=== PATIENT | female | born 1965 | race Caucasian/White ===

== ENCOUNTER 2024-06-25 17:14 | Emergency (ER) | payer OTHER, SELFPAY ==
[2024-06-25] VITALS (20 sets, daily range): BP systolic 101–140; BP diastolic 54–87; PULSE 86–119; RESP 14–28; TEMP 36.4; O2SAT 91–100
--- NOTE | ~2024-06-25 | CT_ITS ---
CLINICAL INDICATION: Abdominal pain, nausea and vomiting COMPARISON: None. TECHNIQUE: Multiple contiguous axial images of the abdomen and pelvis were performed following the ad ministration of with 100 mL Omnipaque-350 intravenous contrast The dose-length product (DLP) was 237.32 mGy-cm. Automated exposure control and iterative reconstruction technique were employed. FINDINGS/OBSERVATIONS: Visualized lower thorax: The bilateral lung bases are clear. The heart is of normal size, without pericardial effusion. Small hiatal hernia is present. Liver: The liver demonstrates homogeneous enhancement and is not enlarged. Gallbladder and biliary system: The gallbladder is only minimally distended, and otherwise unremarkable. Pancreas: The pancreas enhances homogeneously without ductal dilatation. Spleen: The spleen enhances homogeneously and is not enlarged. Kidneys: Well-circumscribed subcentimeter rounded foci of fluid attenuation within the right kidney, likely representing cysts. The remainder of the bilateral kidneys otherwise enhance symmetrically without hydronephrosis or anyi l calculi. Adrenal glands: Unremarkable. Gastrointestinal tract: The stomach is fluid-filled, and somewhat distended consistent with patient's history. Appendix: The air-filled appendix is of normal caliber (axial series, images 98 through 107) Vasculature: Unremarkable. Lymph nodes: No pathologically enlarged or morphologically suspicious lymph nodes within the retroperitoneum or at the root of the mesentery. Pelvic structures: The bladder is decompressed, and otherwise unremarkable. The uterus is anteverted and anteflexed, and otherwise unremarkable. Body wall and musculoskeletal: Small fat-containing umbilical hernia. Compression of the inferior endplate of the L1 vertebral body likely chronic secondary to sclerosis a nd vacuum phenomena. IMPRESSION: No acute pathology within the abdomen or pelvis, as detailed above. Reviewed, dictated and finalized at location A.
--- OUTSIDE RECORDS SUMMARY | 2024-06-25 18:04 | XMS_ITS | Referral Summary ---
Author Organization [facility] Address [address] [place] [address] Care Team Providers Care Shot Polisher Name Role Phone Tawana Hart MD Unavailable [phone] Jailene Callaway MD Primary Care Provider [phone] Encounters Date Type Department Care Team Description 06/11/2024 Telephone [facility] at [address] [phone] Jailene Callaway MD Med Refill 05/06/2024 Telephone [facility] Primary Care at [address] [place] [address] Jailene Callaway MD Appointment 05/06/2024 Telephone [facility] Gastroenterology at [address] [place] [address] Calderon De Leon NP 05/06/2024 10:00 AM SEAT COVER CUTTER Office Visit [facility] Gastroenterology at [address] [place] [address] Calderon De Leon NP Gastroesophageal reflux disease with esophagitis without hemorrhage (Primary Dx); Erosive gastritis; Hiatal hernia; 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; Irritable bowel syndrome with constipation; Chronic constipation; Hypotension due to hypovolemia; Viral illness; Nausea vomiting and diarrhea; Hyperglycemia due to diabetes mellitus (HCC); Nausea and vomiting, unspecified vomiting type; Tubular adenoma of colon; Tobacco use; Hepatic steatosis 05/02/2024 Telephone [facility] Res[facility] at [place] [address] [facility] [address] [place] [address] Jailene Callaway MD 04/17/2024 8:28 AM SEAT COVER CUTTER - 04/17/2024 11:59 PM SEAT COVER CUTTER Hospital Encounter [facility] [address] [place] [address] Type 2 diabetes mellitus with diabetic neuropathy, unspecified whether prison insulin use (HCC) Discharge Disposition: Discharge to home or self care from Last 3 Months Allergies No known active allergies Medications citalopram (CeleXA) 20 mg tablet Take 0.5 tablets (10 mg total) by mouth daily 5 06/09/19 19 Active blood glucose diagnostic strip Check blood sugar before meals and at bedtime every night 120 each 04/28/19 20 Active Additional Information Patient not taking.Reported on 09/18/2023 aluminum-magnesium hydroxide-simethic one (MAALOX) suspension 200-200-20 mg/5 mL Take 30 mL by mouth 4 (four) times a day as needed for heartburn 354 mL 06/01/19 24 Active cloNIDine (CATAPRES-TTS) 0.2 mg/[address] 1 patch on the skin once a week 4 patch 1 06/01/19 24 Active empagliflozin (JARDIANCE) 10 mg tablet Take 1 tablet (10 mg total) by mouth daily 07/28/19 24 Active furosemide (LASIX) 40 mg tablet Take 1 tablet (40 mg total) by mouth daily 07/27/19 24 Active insulin lispro (HumaLOG, ADMELOG) 100 unit/mL pen for injection INJECT 5 UNITS UNDER THE SKIN THREE TIMES DAILY BEFORE MEALS DIRECTED Active metoprolol XL (TOPROL-XL) 25 mg extended release tablet Take 1 tablet (25 mg total) by mouth daily 07/27/19 24 Active ondansetron ODT (ZOFRAN-ODT) 4 mg disintegrating tablet Take 1 tablet (4 mg total) by mouth every 6 (six) hours as needed 07/27/19 24 Active TechLITE Pen Needle 32 gauge x 5/32 needle USE ONCE DAILY WITH VICTOZIA 05/22/19 24 Active spironolactone (ALDACTONE) 25 mg tablet Take 1 tablet (25 mg total) by mouth daily 07/28/19 24 Active aspirin 81 mg enteric coated tablet Take 1 tablet (81 mg total) by mouth daily Active traZODone (DESYREL) 50 mg tablet Take 1 tablet (50 mg total) by mouth daily Active LANTUS 100 unit/mL (3 mL) pen for injection INJECT 20 UNITS SUBQ EVERY EVENING 10/10/19 24 Active Dexcom G7 Sensor device USE TO TEST BLOOD SUGAR FOUR TIMES DAILY 12/13/19 24 Active cyanocobalamin (Vitamin B-12) 1,000 mcg tabletIndications: Prevention of Vitamin B12 Deficiency Take 1 tablet (1,000 mcg total) by mouth daily 90 tablet 3 01/03/20 24 025 Active cholecalciferol (VITAMIN D-3) 2000 unit capsule Take 1 capsule (2,000 Units total) by mouth daily 90 capsule 3 01/03/20 24 Active albuterol HFA (PROVENTIL HFA,VENTOLIN HFA,PROAIR HFA) 90 mcg/actuation inhaler Inhale 2 puffs Activ e benzonatate (TESSALON) 100 mg capsule 01/01/20 24 Active simethicone (MYLICON) 125 mg chewable tablet Take 1 tablet (125 mg total) by mouth 4 (four) times a day as needed (cramping/bloat ing/gas/nausea) 120 tablet 3 01/03/[address] (PROTONIX) 40 mg EC tabletIndications: Treatment of Non-Bleeding Gastric Disorder Take 1 tablet (40 mg total) by mouth 2 (two) times a day before breakfast and dinner 180 tablet 3 05/06/19 25 026 Active lubiprostone (AMITIZA) 24 mcg capsuleIndications :Constipation Predominant Irritable Bowel Syndrome Take 1 capsule (24 mcg total) by mouth 2 (two) times a day with meals 60 capsule 11 05/06/19 25 026 Active semaglutide (OZEMPIC SUBQ) Inject under the skin Active Active Problems Problem Noted Date Diagnosed Date Vitamin D deficiency 01/03/2024 Tubular adenoma of colon 01/03/2024 Chronic constipation 01/03/2024 Irritable bowel syndrome with constipation 01/02 Coronary artery disease invo lving [place] coronary artery of [place] heart without angina pectoris 09/18/2023 Other emphysema 09/18/2023 Tobacco use 09/18/2023 Hepatic steatosis 08/14/2023 Hx of colonic polyps 08/14/2023 Diabetic ketoacidosis associ ated with type 2 diabetes mellitus 05/31/2023 Uncontrolled diabetes mellitus with hyperglycemi a 05/30/2023 Esophagitis 05/30/2023 Diabetic ketoacidosis withou t coma associated with type 2 diabetes mellitus 05/30/2023 Compression fracture of L1 lumbar vertebra 05/29 Hypercalcemia 05/30/2023 Topete's esophagus with dysplasia 11/19/2019 Assessment & Plan (11/19/2019 10:54 AM CDT): Pt had biopsy of esophagus which showed Topete's with indeterminate dysplasia. She is on pantoprazole daily and we discussed importance of continuing this medication as well as following GERD diet. Pt also smokes about 1 pack daily. Discussed importance of working on cessation as this can affect Topete's progression. Pt was scheduled to have EGD 3 months from last. Straining during bowel movements 11/19/2019 Assessment & Plan (11/19/2019 10:57 AM CDT): Pt c/o harder stools and often having to strain to have BM. She says she goes about every other day. Advised to use Miralax prn. Topete's esophagus 11/19/2019 Overview (11/19/2019): Added automatically from request for surgery [id number] Nausea and vomiting 09/23/2019 Overview (09/23/2019): Added automatically from request for surgery [id number] Assessment & Plan (11/19/2019 10:56 AM CDT): Likely from slow GI motility due to diabetes. She was instructed to take Reglan 10mg BID and can take up to TID if N/V episodes occur. Pt also to continue on pantoprazole daily. Assessment & Plan (09/23/2019 2:14 PM CDT): First episode started Jan 2019. Had two more episodes since then. One in Apr 2019 and most recent in July 2019. Pt says she gets N/V and epigastric pain occurs when vomiting is more severe. No hematemesis. Usually lasts about 2-4 days and then will suddenly stop. Will schedule EGD. Continue pantoprazole and stop the omeprazole. Encounter for screening colonoscopy 09/23/2019 Overview (09/23/2019): Added automatically from request for surgery [id number] Assessment & Plan (09/23/2019 2:15 PM CDT): Never had screening colonoscopy. Will schedule this today. Epigastric pain 09/23/2019 Assessment & Plan (09/23/2019 2:15 PM CDT): Occurs when N/V get more severe. GERD (gastroesophageal reflux disease) 0 Assessment & Plan (11/19/2019 10:56 AM CDT): Symptoms overall doing okay on pantoprazole daily. She is still getting nausea on and off but no regurgitation or burning in chest. Will add Reglan 10mg twice daily at least 30 minutes before lunch and dinner. She was told she can take up to 3 times daily if she starts having worsening nausea or starts to have vomiting. Pt denies any neurological or movement disorders. We discussed possible side effects of Reglan and to stop and let us know if any of these occur. She verbalized understanding. Assessment & Plan (09/23/2019 2:15 PM CDT): Pt currently taking pantoprazole 40mg daily along with omeprazole 20mg daily. Pt instructed to only take pantoprazole and stop the omeprazole. Also instructed to follow GERD diet. She was given handout on this diet. Oropharyngeal dysphagia 09/23/2019 Assessment & Plan (09/23/2019 2:12 PM CDT): Pt c/o issues with feeling as if food and liquids get suck in her upper throat. She says this happens at least once a week. Will schedule EGD. BMI 24.0-24.9, adult 09/23/2019 Metabolic alkalosis 08/03/2019 Marijuana smoker, episodic 08/03/2019 Assessment & Plan (09/23/2019 2:43 PM CDT): Pt says she smokes marijuana about 2-4 times a month. Discussed that this can cause N/V episodes. She says she doesn't notice this is correlated with the N/V episodes and seldom does. She says it helps her eat better. Hypokalemia 08/03/2019 Leukocytosis 04/26/2019 Intractable vomiting with nausea 04/26/2019 Dehydration 04/26/2019 Ketonuria 04/26/2019 Type 2 diabetes mellitus 04/26/2019 Assessment & Plan (11/19/2019 10:58 AM CDT): History of uncontrolled diabetes and DKA. Hyperlipidemia 04/26/2019 Hypercalcemia 04/26/2019 Smoker 04/26/2019 Assessment & Plan (11/19/2019 10:54 AM CDT): Smokes about 1 pack daily. Discussed cessation and importance especially given the findings of Jorge. Current smoker 10/07/2014 Overview (06/30/2016): Smoker Shoulder pain 10/07/2014 Overview (06/30/2016): Shoulder pain Diabetic ketoacidosis withou t coma associated with diabetes mellitus due to underlying condition Social History Tobacco Use Types Packs/Day Years Used Date Smoking Tobacco: Every Day Cigarettes 1.2 15.4 Started: 04/26/1994; Last attempted to quit: 2009 Smokeless Tobacco: Never Tobacco Cessation:Ready to Q uit: Not Asked; Counseling Given: Not Answered Alcohol Use Standard Drinks/Week Comments Yes 0 (1 standard drink = 0.6 oz pur e alcohol) occasional [employer] Utilities Answer Date Recorded In the past 12 months has [employer], gas, oil, or water [employer] threatened to shut off services in your home? No 05/31/2023 Social Connection and Isolat ion Panel [NHANES] Answer Date Recorded In a typical week, how many times do you talk on the phone with family, friends, or neighbors? More than three times a week 05/31/2023 How often do you get togethe r with friends or relatives? More than three times a week 05/31/2023 How often do you attend chur ch or quaker services? Never 05/31/2023 Do you belong to any clubs o r organizations such as hoahaoism groups, unions, fraternal or athletic groups, or school groups? No 05/31/2023 How often do you attend meet ings of the clubs or organizations you belong to? Never 05/31/2023 Are you , , di vorced, , never , or living with a partner? 05/31/2023 AUDIT-C Answer Date Recorded Q1: How often do you have a drink containing alc ohol? Never 05/06/2024 Q2: How many drinks containi ng alcohol do you have on a typical day when you are drinking? 1 or 2 05/06/2024 Q3: How often do you have six or more drinks on one occasion? Never 05/06/2024 Overall Financial Resource Strain (CARDIA) Answe r Date Recorded How hard is it for you to pa y for the very basics like food, housing, medical care, and heating? Not hard at all 05/31/2023 Hunger Vital Sign Answer Date Recorded Within the past 12 months, y ou worried that your food would run out before you got the money to buy more. Never true 05/31/19 24 Within the past 12 months, t he food you bought just didn't last and you didn't have money to get more. Never true 05/31/2023 PRAPARE - Transportation Answer Date Re corded In the past 12 months, has l ack of transportation kept you from medical appointments or from getting medications? No 09/2023 In the past 12 months, has l ack of transportation kept you from meetings, work, or from getting things needed for daily living? No 05/31/2023 Housing Stability Vital Sign Answer Atte e Recorded In the last 12 months, was t here a time when you were not able to pay the mortgage or rent on time? No 05/31/2023 In the last 12 months, how many places have you lived? 1 05/31/2023 In the last 12 months, was t here a time when you did not have a steady place to sleep or slept in a longterm (including now)? No 05/31/2023 Housing Stability Vital Sign Answer Tate e Recorded In the last 12 months, was t here a time when you were not able to pay the mortgage or rent on time? No 05/31/2023 Number of Times Moved in the Last Year Not on fi le 05/31/2023 Homeless in the Last Year Not on file 2023 Personal Safety Answer Date Recorded Have you ever been in or are you currently in a harmful physical or emotional relationship or is someone making you feel afraid or unsafe? Denies 02/18/2024 Education Answer Date Recorded What is the highest level of school you have completed or the highest degree you have received? Some college, no degree 05/31/2023 Comments No Sex and Gender Information Value Date Recorded Sex Assigned at Not on file Legal Sex Female 2:16 PM SEAT COVER CUTTER Gender Identity Not on file Sexual Orientation Not on file Last Filed Vital Signs Vital Sign Reading Time Taken Comments Blood Pressure 110/80 05/06/2024 9:55 AM SEAT COVER CUTTER Pulse 89 05/06/2024 9:55 AM SEAT COVER CUTTER Temperature 36.8 C (98.2 F) 02/18/2024 2:01 PM SEAT COVER CUTTER Respiratory Rate 20 02/18/2024 2:01 PM SEAT COVER CUTTER Oxygen Saturation 94% 05/06/2024 9:55 AM SEAT COVER CUTTER Inhaled Oxygen Concentration - - Weight 63.1 kg (139 lb 1.6 oz) 05/06/2024 9:55 A M SEAT COVER CUTTER Height 152.4 cm (5') 05/06/2024 9:55 AM SEAT COVER CUTTER Body Mass Index 27.17 05/06/2024 9:55 AM SEAT COVER CUTTER Plan of Treatment Not on file Procedures Procedure Name Priority Date/Time Associated Diagnosis Comments XR FOOT BILATERAL 3 OR MORE VIEWS OF EACH Schedule Routine, Read Routine (OP Routine) 04/17/2024 8:42 AM SEAT COVER CUTTER Type 2 diabetes mellitus with diabetic neuropathy, 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) SCREENING MAMMOGRAM BILATERAL W SANG Schedule Routine, Read Routine (OP Routine) 03/04/2024 2:24 PM SEAT COVER CUTTER Encounter for screening mammogram for malignant neoplasm of breast COLONOSCOPY 02/18/2024 11:27 AM SEAT COVER CUTTER EGFR Routine 12/24/2023 11:54 AM CDT Ulcerative esophagitis Gastroesophageal reflux disease with esophagitis without hemorrhage Nausea and vomiting, unspecified vomiting type HEMOGLOBIN A1C Add-On 05/30/2023 10:01 AM SEAT COVER CUTTER LIPID PANEL Routine 04/26/2019 6:33 AM SEAT COVER CUTTER from Last 3 Months or Most Recently Relevant to Health Maintenance Results * XR Foot Bilateral 3 or More Views of Each (04/17/2024 8:42 AM SEAT COVER CUTTER) Anatomical Region Laterality Modality Lower Extremities, Foot Computed Radiography 04/17/2024 10:0 0 AM SEAT COVER CUTTER Narrative 04/17/2024 10:03 AM SEAT COVER CUTTER EXAM DESCRIPTION: XR FOOT BILATERAL 3 OR MORE VIEWS OF EACH REASON FOR STUDY: E11.40 Right foot swelling 3 months No left foot pain Diabetic Nki No surgery FINDINGS: Three views of each foot are submitted for interpretation. Comparison left ankle radiographs 03/02/2012. 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 No fracture seen in either foot. Bilateral os intermetatarseum. 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 THIS IS AN ELECTRONICALLY VERIFIED FINAL REPORT 04/17/2024 10:03 AM - Electronically signed by Armando Nelson M.D. TH: TH Report ID: [id number] Reading Location: [id number] Procedure Note Armando Nelson MD - 04/17/2024 EXAM DESCRIPTION: XR FOOT BILATERAL 3 OR MORE VIEWS OF EACH REASON FOR STUDY: E11.40 Right foot swelling 3 months No left foot pain Diabetic Nki No surgery FINDINGS: Three views of each foot are submitted for interpretation. Comparisonleft ankle radiographs 03/02/2012. 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 No fracture seen in either foot. Bilateral os intermetatarseum. 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 THIS IS AN ELECTRONICALLY VERIFIED FINAL REPORT 04/17/2024 10:03 AM - Electronically signed by Armando Nelson M.D. TH: TH Report ID: [id number] Reading Location: [id number] Jailene Clalaway MD G XR PROCEDURES Final Res ult * Screening Mammogram Bilateral W Sang (03/04/2024 2:24 PM SEAT COVER CUTTER) Anatomical Region Laterality Modality Breast Bilateral Mammography 03/04/2024 3:16 PM SEAT COVER CUTTER Impressions 03/04/2024 3:16 PM SEAT COVER CUTTER No evidence of malignancy in either breast. FINAL ASSESSMENT: BI-RADS Category 1: Negative. RECOMMENDATION: Recommend return for annual screening mammogram in 12 months. Electronically signed by: Ahmet Tripp M.D. Narrative 03/04/2024 3:16 PM SEAT COVER CUTTER EXAMINATION: BILATERAL SCREENING MAMMOGRAM COMPARISON: 01/21/2018 TECHNIQUE: Full-field 2D and digital breast tomosynthesis (DBT) images were obtained. CAD was utilized. BREAST PARENCHYMAL COMPOSITION: The breasts are heterogenously dense, which may obscure small masses. FINDINGS: No suspicious masses, suspicious calcifications, or other suspicious findings are seen in either breast. There is no new suspicious finding in either breast on mammogram. Jailene Callaway MD G MAMMO PROCEDURES Final Result * Colonoscopy (02/18/2024 11:27 AM SEAT COVER CUTTER) Anatomical Region Laterality Modality Other Narrative Procedure Note Tawana Hart MD - 02/18/2024 11:27 AM CST [facility] Patient Name: Chelsy Arnett Procedure Date: 02/18/2024 11:27AM Date of : 1965 Admit Type: Outpatient Age: 58 Gender: Female Attending MD: Tawana Hart M.D. Room: [facility] ENDOSCOPY [facility]OM 1 Note Status: Finalized Patient Profile: This is a 58 year old female. History of polyps. No family history of colon cancer. She complains of chronic loose bowel movements. Procedure: Colonoscopy Indications: High risk colon cancer surveillance: Personalhistory of colonic polyps, Last colonoscopy: 2019 Referring MD: Jailene Callaway M.D. Providers: Tawana Hart M.D. Impression: - The entire examined colon is normal. Biopsied. - Internal hemorrhoids. Recommendation: - Await pathology results. - Repeat colonoscopy in 5 years for surveillance. - Continue present medications. Medicines: Monitored Anesthesia Care Complications: No immediate complications. Estimated Blood Loss: Estimated blood loss: none. Procedure: Pre-Anesthesia Assessment: - Prior to the procedure, a History and Physicalwas performed, and patient medications and allergieswere reviewed. The patient's tolerance of previous anesthesia was also reviewed. The risks andbenefits of the procedure and the sedation options and risks were discussed with the patient. All questions were answered, and informed consent was obtained. Prior Anticoagulants: The patient has taken noanticoagulant or antiplatelet agents. ASA Grade Assessment: Per anesthesia note and evaluation. After reviewing the risks and benefits, the patient was deemed in satisfactory condition to undergo the procedure. The benefits, risks and alternatives of theprocedure and sedation were discussed and informed consentwas obtained. All questions were answered. Please referto the signed informed consent document in the medical record. The bowel preparation used was Miralax via extended prep with split dose instruction. Thebowel preparation used was bisacodyl tablets via extended prep with split dose instruction. The scope waspassed under direct vision. The Pediatric Colonoscope PCF-H190L [id number] was introduced through the anus and advanced to the the cecum, identified by appendiceal orifice and ileocecal valve. Thequality of the bowel preparation was adequate. Bowel prepwas administered using a split dose. Findings: The perianal and digital rectal examinations were normal. The cecum appeared normal. The colon (entire examined portion) appeared normal. Biopsies weretaken with a cold forceps for histology. No polyps and no mass lesionsnoted. Internal hemorrhoids were found during retroflexion. The hemorrhoids were small. Electronically signed by Tawana Hart M.D. Tawana Hart M.D. 02/18/2024 1:53:55 PM Number of Addenda: 0 Note Initiated On: 02/18/2024 11:27 AM Procedure Code(s): --- Professional --- 83369, Colonoscopy, flexible; with biopsy, single or multiple Diagnosis Code(s): --- Professional --- Z86.010, Personal history of colonic polyps K64.8, Other hemorrhoids CPT copyright 2020 [employer]. All rights reserved. The codes documented in this report are preliminary and upon customer development manager reviewmay be revised to meet current compliance requirements. Recognized by the [employer] for promoting quality in endoscopy us Tawana Hart MD ENDOSCOPY PROCEDURES Final Result * eGFR (12/24/2023 11:54 AM CDT) eGFR 90 >=60 mL/min/1. 73 m2 Comment: Interpretive Data Reference Interval Normal >/= 90 mL/min/1.73m2 Mildly decreased* 60 - 89 mL/min/1.73m2 Mildly to moderately decreased 45 - 59 mL/min/1.73m2 Moderately to severely decreased 30 - 44 mL/min/1.73m2 Severely decreased 15 - 29 mL/min/1.73m2 Kidney Failure < 15 mL/min/1.73m2 *Relative to young adult level Estimated glomerular filtration rate is determined by the 2020 CKD-EPI equation recommended by the National Kidney Foundation (A Unifying Approach to GFR Estimation: Recommendations of the NKF-ASK Task Force on Reassessing the Inclusion of Race in Diagnosing Kidney Disease, JASN 2020). The CKD-EPI equation should not be used for patients with unstable renal function and has not been validated in children and those over 70. Current interpretive data was last reviewed 2021. Blood 12/24/2023 11:5 4 AM CDT 12/24/2023 3:53 PM CDT Calderon De Leon NP LAB BLOOD ORDERABLE S Final Result Performing Organization Address City/[facility]/ZIP Co de Phone Number [facility] ([place]) [address] [facility] [place] [address] * (ABNORMAL) Hemoglobin A1c (05/30/2023 10:01 AM SEAT COVER CUTTER) Hgb A1C 10.2(H) 4.0 - 5.6 % Estimated Average Glucose 246 mg/dL [facility] ([place]) Comment: The ADA recommends reporting an estimated Average Glucose (eAG) with all Hemoglobin A1c results using the equation derived from a study of 507 normal and diabetic adults. Minority populations were underrepresented and children were not included. (Diabetes Care 31:6490-6513, 2008). The eAG is not equivalent to a fasting glucose. Blood 05/30/2023 10:0 1 AM SEAT COVER CUTTER 05/30/2023 10:36 AM SEAT COVER CUTTER Suraj Garza MD LAB BLOOD ORDERABLES Final R esult [facility] ([place]) [address] [facility] [place] [address] * (ABNORMAL) Lipid panel (04/26/2019 6:33 AM SEAT COVER CUTTER) Cholesterol 234(H) 30 - 199 mg/dL [facility] ([place]) Comment: Interpretive Data Ages < or = 19 years Acceptable: <170 mg/dL Borderline high: 170-199 mg/dL High: >or= 200 mg/dL Ages > or = 20 years Desirable: <200 mg/dL Borderline high: 200-239 mg/dL High: >or= 240 mg/dL Literature References: 1. Expert Panel on Integrated Guidelines for Cardiovascular Health and Risk Reduction in Children and Adolescents. Pediatrics 2011;128:S213 2. NCEP Expert Panel. Circulation 2004;110:227 Current Interpretive Data was last revised on 2017. Triglycerides 276(H) <=149 mg/dL [facility] ([place]) Comment: Interpretive Data Ages < or = 9 years Acceptable: <75 mg/dL Borderline high: 75-99 mg/dL High: >or= 100 mg/dL Ages 10 to 20 years Acceptable: <90 mg/dL Borderline high: 90-129 mg/dL High: >or= 130 mg/dL Ages > or = 20 years Desirable: <150 mg/dL Borderline high: 150-199 mg/dL High: 200-499 mg/dL Very high: >or= 499 mg/dL Literature References: 1. Expert Panel on Integrated Guidelines for Cardiovascular Health and Risk Reduction in Children and Adolescents. Pediatrics 2011;128:S213 2. NCEP Expert Panel. Circulation 2004;110:227 Current Interpretive Data was last revised on 2017. HDL 29(L) >=40 mg/dL [facility] ([place]) Comment: Interpretive Data Ages < or = 19 years Acceptable: >45 mg/dL Borderline low: 40-45 mg/dL Low: <40 mg/dL Ages > or = 20 years Desirable: >or= 60 mg/dL Low: <40 mg/dL Literature References: 1. Expert Panel on Integrated Guidelines for Cardiovascular Health and Risk Reduction in Children and Adolescents. Pediatrics 2011;128:S213 2. NCEP Expert Panel. Circulation 2004;110:227 Current Interpretive Data was last revised on 2017. LDL, calculated 150(H) <=129 mg/dL RENE ANG ([place]) Comment: Interpretive Data Ages < or = 19 years Acceptable: <110 mg/dL Borderline high: 110-129 mg/dL High: >or= 130 mg/dL Ages > or = 20 years Optimal: <100 mg/dL Near optimal: 100-129 mg/dL Borderline high: 130-159 mg/dL High: >160 mg/dL Literature References: 1. Expert Panel on Integrated Guidelines for Cardiovascular Health and Risk Reduction in Children and Adolescents. Pediatrics 2011;128:S213 2. NCEP Expert Panel. Circulation 2004;110:227 Current Interpretive Data was last revised on 2017. Non-HDL Cholesterol 205 mg/dL RENE ANG (CHAPIN) Comment: Interpretive Data Ages < or = 19 years Acceptable: <120 mg/dL Borderline high: 120-144 mg/dL High: >145 mg/dL Ages > or = 20 years When triglycerides are >200 mg/dL, Non-HDL cholesterol is a secondary target of therapy with treatment goals that are 30 mg/dL greater than the LDL cholesterol target. Literature References: 1. Expert Panel on Integrated Guidelines for Cardiovascular Health and Risk Reduction in Children and Adolescents. Pediatrics 2011;128:S213 2. NCEP Expert Panel. Circulation 2004;110:227 Current Interpretive Data was last revised on 2017. Chol/HDL ratio 8 [place] ANG (CHAPIN) Blood specimen (specimen) 04/26/2019 6:33 AM SEAT COVER CUTTER 04/26/2019 6:57 AM SEAT COVER CUTTER us Marilyn Kong MD LAB BLOOD ORDERABLES Final Re sult RENE ANG ([place]APIN) 1 [facility] [place] [address] from Last 3 Months or Most Recently Relevant to Health Maintenance Insurance [employer] SIG [id number] [facility] Advance Directives For more information, please contact: [phone] * Full Code (Latest Code Status on File) Date Activated Date Inactivated Comments 02/18/2024 11:30 AM 02/18/2024 6:26 PM * Full Code Date Activated Date Inactivated Comments 02/18/2024 11:30 AM 02/18/2024 11:30 AM * Full Code Date Activated Date Inactivated Comments 05/31/2023 9:42 AM 06/01/2023 4:32 PM * Full Code Date Activated Date Inactivated Comments 05/30/2023 2:02 PM 05/31/2023 9:42 AM * Full Code Date Activated Date Inactivated Comments 11/05/2019 7:59 AM 11/05/2019 1:33 PM Care Teams Shot Polisher Relationship Specialty Start Date End Date Jailene Callaway MD [address] [facility] [address] [address] CALLAHAN [facility] [place] [address] PCP - General Family Medicine 07/25/23 Tawana Hart MD [address] [place] [address] [place] [address] Consulting Physician Gastroenterology 06/01/23
--- OUTSIDE RECORDS SUMMARY | 2024-06-25 18:04 | XMS_ITS | Clinical Summary ---
Author Organization [facility] Address [address] [place] [address] Care Team Providers Care Power Saw Mechanic Name Role Phone Tawana Hart MD Unavailable [phone] Jailene Callaway MD Primary Care Provider [phone] Allergies No known active allergies Medications citalopram [...] Active TechLITE Pen Needle 32 gauge x 32 needle USE ONCE DAILY WITH VICTOZIA 05/22/19 [...] day before breakfast and dinner 180 tablet 05/06/19 25 026 Active lubiprostone (AMITIZA) 24 [...] constipation 01/02 Coronary artery disease invo lving elem coronary artery of elem heart without angina pectoris 09/18/2023 Other emphysema [...] (11/19/2019): Added automatically from request for surgery [id number] Nausea and vomiting 09/23/2019 Overview (09/23/2019): Added automatically from request for surgery [id number] Assessment & Plan (11/19/2019 10:56 AM CDT): [...] (09/23/2019): Added automatically from request for surgery [id number] Assessment & Plan (09/23/2019 2:15 PM CDT): [...] and importance especially given the findings of Topete's. Current smoker 10/07/2014 Overview (06/30/2016): Smoker Shoulder pain 10/07/2014 Overview (06/30/2016): Shoulder pain Diabetic ketoacidosis withou t coma associated with diabetes mellitus due to underlying condition Encounters Date Type Department Care Team Description 06/11/2024 Telephone [facility] Res[facility] at [place] [address] [facility] [address] [place] [address] Jailene Callaway MD Med Refill 05/06/2024 10:00 AM HEMATOLOGIST Office Visit [facility] Gastroenterology at [address] [place] [address] Calderon De Leon NP Gastroesophageal reflux disease with esophagitis without hemorrhage (Primary Dx); Erosive gastritis; Hiatal hernia; 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; Irritable bowel syndrome with constipation; Chronic constipation; Hypotension due to hypovolemia; Viral illness; Nausea vomiting and diarrhea; Hyperglycemia due to diabetes mellitus (HCC); Nausea and vomiting, unspecified vomiting type; Tubular adenoma of colon; Tobacco use; Hepatic steatosis 05/06/2024 Telephone [facility] Primary Care at [address] [place] [address] Jailene Callaway MD Appointment 05/06/2024 Telephone [facility] Gastroenterology at [address] [place] [address] Calderon De Leon NP 05/02/2024 Telephone [facility] Res[facility] Clinic at [address] [place] [address] Jailene Callaway MD 04/17/2024 8:28 AM HEMATOLOGIST - 04/17/2024 11:59 PM HEMATOLOGIST Hospital Encounter [facility] [address] [place] [address] Type 2 diabetes mellitus with diabetic neuropathy, unspecified 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 (HCC) Discharge Disposition: Discharge to home or self care from Last 3 Months Surgical History Surgery Date Site/Laterality Comments SECTION 1987 section SHOULDER ARTHROSCOPY 1998 Arthroscopy shoulder HYSTERECTOMY 03/26/1997 partial hysterectomy COLONOSCOPY 11/05/2019 COLONOSCOPY 02/18/2024 UPPER GASTROINTESTINAL ENDOSCOPY 02/18/2024 Medical History Medical History Date Comments Depression Depression Hx Other Medical Three s - 1983, 1986, and 1987.; Comments: LAUREN 10/07/2014 - Hx Other Medical Arthroscopic ri ght shoulder surgery early o; Comments: LAUREN 10/07/2014 - Hx Other Medical Left AC resecti on with anterior acromioplasty 8-4-; Comments: LAUREN 11/09/2014 - Diabetes mellitus (HCC) Hyperlipidemia Type 2 diabetes mellitus (HCC) PONV (postoperative nausea and vomiting) GERD (gastroesophageal reflux disease) Hypertension Family History Medical History Relation Name Comments Other Other Family history of diabetes and hypertension.; Breast cancer Neg Hx Ovarian cancer Neg Hx Thyroid cancer Neg Hx Relation Name Status Comments Other Social History Tobacco Use Types Packs/Day Years Used Date Smoking Tobacco: Every Day Cigarettes 1.2 15.4 Started: 04/26/1994; Last attempted to quit: 2009 Smokeless Tobacco: Never Tobacco Cessation:Ready to Q uit: Not Asked; Counseling Given: Not Answered Alcohol Use Standard Drinks/Week Comments Yes 0 (1 standard drink = 0.6 oz pur e alcohol) occasional C Utilities Answer Date Recorded In the past 12 months has th e [employer], gas, oil, or water [employer] threatened to shut off services in your [...] week 05/31/2023 How often do you attend [facility] or shinto services? Never 05/31/2023 Do you belong to any clubs o r organizations such as caodaism groups, unions, fraternal or athletic groups, or [...] place to sleep or slept in a snf (including now)? No 05/31/2023 Housing Stability Vital [...] on file Legal Sex Female 2:16 PM HEMATOLOGIST Gender Identity Not on file Sexual Orientation Not on file Obstetrics History Para Term AB IAB SAB Ectopic Multiple Livin g Live Births 3 3 3 0 0 0 0 0 Date Outcome GA Total Labor Labor/2nd/3rd Weight Sex Type Anes PTL Gila A1 A5 Name Clin Term Term Term Last Filed Vital Signs Vital Sign Reading Time Taken Comments Blood Pressure 110/80 05/06/2024 9:55 AM HEMATOLOGIST Pulse 89 05/06/2024 9:55 AM HEMATOLOGIST Temperature 36.8 C (98.2 F) 02/18/2024 2:01 PM HEMATOLOGIST Respiratory Rate 20 02/18/2024 2:01 PM HEMATOLOGIST Oxygen Saturation 94% 05/06/2024 9:55 AM HEMATOLOGIST Inhaled Oxygen Concentration - - Weight 63.1 kg (139 lb 1.6 oz) 05/06/2024 9:55 A M HEMATOLOGIST Height 152.4 cm (5') 05/06/2024 9:55 AM HEMATOLOGIST Body Mass Index 27.17 05/06/2024 9:55 AM HEMATOLOGIST Plan of Treatment Health Maintenance Due Date Last Done Comments Albumin Creatinine Ratio, Urine 1965 Depression Screening 1965 Hepatitis C Screening 1965 Dilated Eye Exam 1965 Foot Exam 1965 DTaP/Tdap/Td Vaccine (1 - Tdap) 10/07/1974 Hepatitis B Screening 10/07/1981 Regular Well Visit/Exam 18-64 10/07/1981 Pneumococcal vaccine <65 (1 of 2 - PCV) 10/07/1982 Zoster Vaccine (1 of 2) 10/07/2013 Lipid Panel 04/26/2020 04/26/2019 Covid-19 Vaccine (2 - 2023-2 5 season) 2023 05/29/2020 Hemoglobin A1C 11/30/2023 05/30/2023, 04/26/2019 Influenza Vaccine (Season Ended) 2024 01/15/2023, 01/16/2020, 05/01/2019, Additional history exists eGFR 12/23/2024 12/24/2023, 03/0 10/2023, 05/31/2023, Additional history exists Breast Cancer Screening-Mammogram 03/04/2025 03/04/2024, 01/21/2018, 01/21/2018, Additional history exists Colon Cancer Screening-Colonoscopy 02/17/2034 02/18/2024, 11/05/2019 Colon Cancer Screening-CT Colonography Discontinued 02/18/2024, 11/05/2019 Colon Cancer Screening-DNA Stool Discontinued 02/18/20 24, 11/05/2019 Colon Cancer Screening-FIT Discontinued 02/18/2024, Colon Cancer Screening-Sigmoidoscopy Discontinued 02/18/2024, 11/05/2019 Procedures Procedure Name Priority Date/Time Associated Diagnosis Comments XR FOOT BILATERAL 3 OR MORE VIEWS OF EACH Schedule Routine, Read Routine (OP Routine) 04/17/2024 8:42 AM HEMATOLOGIST Type 2 diabetes mellitus with diabetic neuropathy, unspecified whether retirement insulin use (HCC) SCREENING MAMMOGRAM BILATERAL W SANG Schedule Routine, Read Routine (OP Routine) 03/04/2024 2:24 PM HEMATOLOGIST Encounter for screening mammogram for malignant neoplasm of breast COLONOSCOPY 02/18/2024 11:27 AM HEMATOLOGIST EGFR Routine 12/24/2023 11:54 AM CDT Ulcerative esophagitis Gastroesophageal reflux disease with esophagitis without hemorrhage Nausea and vomiting, unspecified vomiting type HEMOGLOBIN A1C Add-On 05/30/2023 10:01 AM HEMATOLOGIST LIPID PANEL Routine 04/26/2019 6:33 AM HEMATOLOGIST from Last 3 Months or Most Recently Relevant to Health Maintenance Results * XR Foot Bilateral 3 or More Views of Each (04/17/2024 8:42 AM HEMATOLOGIST) Anatomical Region Laterality Modality Lower Extremities, Foot Computed Radiography 04/17/2024 10:0 0 AM HEMATOLOGIST Narrative 04/17/2024 10:03 AM HEMATOLOGIST EXAM DESCRIPTION: XR FOOT BILATERAL 3 OR [...] Armando Nelson M.D. TH: TH Report ID: [id number] Reading Location: [id number] Procedure Note Armando Nelson MD - 04/17/2024 [...] Armando Nelson M.D. TH: TH Report ID: [id number] Reading Location: [id number] Jailene Callaway MD IMG XR PROCEDURES Final Res ult * Screening Mammogram Bilateral W Sang (03/04/2024 2:24 PM HEMATOLOGIST) Anatomical Region Laterality Modality Breast Bilateral Mammography 03/04/2024 3:16 PM HEMATOLOGIST Impressions 03/04/2024 3:16 PM HEMATOLOGIST No evidence of malignancy in either breast. FINAL ASSESSMENT: BI-RADS Category 1: Negative. RECOMMENDATION: Recommend return for annual screening mammogram in 12 months. Electronically signed by: Ahmet Tripp M.D. Narrative 03/04/2024 3:16 PM HEMATOLOGIST EXAMINATION: BILATERAL SCREENING MAMMOGRAM COMPARISON: 01/21/2018 TECHNIQUE: [...] Final Result * Colonoscopy (02/18/2024 11:27 AM HEMATOLOGIST) Anatomical Region Laterality Modality Other Narrative Procedure Note Tawana Hart MD - 02/18/2024 11:27 AM CST [facility] Patient Name: Chelsy Arnett Procedure Date: 02/18/2024 11:27AM Date of : 1965 Admit Type: Outpatient Age: 58 Gender: Female Attending MD: Tawana Hart M.D. Room: [facility] ENDOSCOPY ROOM 1 Note Status: Finalized Patient [...] under direct vision. The Pediatric Colonoscope [id number] was introduced through the anus and advanced [...] 11:27 AM Procedure Code(s): --- Professional --- 08952, Colonoscopy, flexible; with biopsy, single or multiple Diagnosis Code(s): --- Professional --- Z86.010, Personal history of colonic polyps K64.8, Other hemorrhoids CPT copyright 2020 [employer]. All rights reserved. The codes documented in this report are preliminary and upon medical biller/coder reviewmay be revised to meet current compliance requirements. Recognized by the [employer] for promoting quality in endoscopy Tawana Hart MD ENDOSCOPY PROCEDURES Final Result [...] NP LAB BLOOD ORDERABLE S Final Result PRIYAMARIBETH ASHIA (GOUVERNEUR) [address] [facility] Department [place] [address] * (ABNORMAL) Hemoglobin A1c (05/30/2023 10:01 AM HEMATOLOGIST) Hgb A1C 10.2(H) 4.0 - 5.6 % Estimated Average Glucose 246 mg/dL RENE ANG ([place]) Comment: The ADA recommends reporting an estimated Average Glucose (eAG) with all Hemoglobin A1c results using the equation derived from a study of 507 normal and diabetic adults. Minority populations were underrepresented and children were not included. (Diabetes Care 31:6176-8085, 2008). The eAG is not equivalent to a fasting glucose. Blood 05/30/2023 10:0 1 AM HEMATOLOGIST 05/30/2023 10:36 AM HEMATOLOGIST Suraj Garza MD LAB BLOOD ORDERABLES Final R esult R[place] ANG ([place]) 1 [facility] Department [place] [address] * (ABNORMAL) Lipid panel (04/26/2019 6:33 AM HEMATOLOGIST) Cholesterol 234(H) 30 - 199 mg/dL RENE [...] (CHAPIN) Blood specimen (specimen) 04/26/2019 6:33 AM HEMATOLOGIST 04/26/2019 6:57 AM HEMATOLOGIST us Marilyn Kong MD LAB BLOOD ORDERABLES Final Re sult [facility] ANG ([place]) [address] [facility] [place] [address] from Last 3 Months or Most Recently Relevant to Health Maintenance [facility] SIG [id number] [facility] Advance Directives For more information, please contact: [phone] * Full Code (Latest Code Status on [...] 7:59 AM 11/05/2019 1:33 PM Care Teams Power Saw Mechanic Relationship Specialty Start Date End Date Jailene Callaway MD [address] [facility] [address] [place] [address] [place] [id number] PCP - General Family Medicine 07/25/23 Tawana Hart MD [address] [place] [address] [address] [place] [id number] Consulting Physician Gastroenterology 06/01/23
--- OUTSIDE RECORDS SUMMARY | 2024-06-25 18:05 | XMS_ITS | Clinical Summary ---
Author Organization [facility] Address [address] [place] [address] Phone Care Team Providers Care Art Appraiser Name Role Phone Jailene Callaway MD Primary Care Provider [phone] Allergies No known active allergies Medications citalopram (CeleXA) 10 MG Tablet Take 1 Tablet by mouth daily. Active cloNIDine 0.2 MG/24HR PATCH WEEKLY 1 Patch by Transdermal route every 7 days. 4 Active famotidine (PEPCID) 40 MG Tablet Take 1 Tablet by mouth daily. Active metoclopramide (REGLAN) 10 MG Tablet Take 10 mg by mouth 4 times daily. 4 Active insulin lispro (HumaLOG) 100 UNIT/ML Solution 5 Units by Subcutaneous route 3 times daily (before meals). Use as directed 10 mL 3 4 Active pantoprazole (PROTONIX) 40 MG Tablet Delayed Response Take 1 Tablet by mouth daily. 30 Tablet 4 Active Empagliflozin (JARDIANCE) 10 MG Tablet Take 1 Tablet by mouth daily. 30 Tablet 4 Active furosemide (LASIX) 40 MG Tablet Take 1 Tablet by mouth daily. 90 Tablet 4 Active polyethylene glycol (GLYCOLAX, MIRALAX) 17 g PackIndications :Constipation Take 1 Packet by mouth 2 times daily as needed for Constipation - 1st line. Dissolve in 4-8 oz of liquid. Indications: Constipation 90 Packet 4 Active senna (SENOKOT) 8.6 MG Tablet Take 1 Tablet by mouth 2 times daily as needed for Constipation - 2nd line. 30 Tablet 4 Active spironolactone (ALDACTONE) 25 MG Tablet Take 1 Tablet by mouth daily. 90 Tablet 4 Active metoprolol Succinate (TOPROL-XL) 25 MG TABLET SR 24 HR Take 1 Tablet by mouth daily. 90 Tablet 4 Active ondansetron (ZOFRAN-ODT) 4 MG TABLET DISPERSIBLE Take 1 Tablet by mouth every 6 hours as needed for Nausea - 1st line. 10 Tablet 5 Active potassium chloride (KLOR-CON) 20 MEQ Pack Take 1 Packet by mouth 2 times daily. 60 Packet 5 Active dicyclomine (BENTYL) 20 MG Tablet Take 1 Tablet by mouth 3 times daily. 90 Tablet 5 Active ondansetron (ZOFRAN-ODT) 4 MG TABLET DISPERSIBLE Take 1 Tablet by mouth every 8 hours as needed for Nausea - 1st line. 10 Tablet 5 Active Active Problems Problem Noted Date Diagnosed Date Acute respiratory failure with hypoxia 4 Edema 07/25/2023 Coronary artery calcification 07/25/2023 Bilateral pleural effusion 07/25/2023 Anemia 07/25/2023 GERD with esophagitis 07/25/2023 Tobacco dependence 07/25/2023 Type 2 diabetes mellitus 07/14/2023 Cocaine abuse 07/14/2023 Esophagitis determined by endoscopy 07/14/2023 Compression fracture of L1 lumbar vertebra 07/13 Depression 07/14/2023 Anxiety 07/14/2023 Tobacco abuse 07/14/2023 HTN (hypertension) 07/14/2023 Hypovolemic shock 07/14/2023 Sepsis 07/13/2023 Hyperkalemia 07/13/2023 Metabolic alkalosis 07/13/2023 Cocaine abuse 07/13/2023 DKA (diabetic ketoacidosis) 05/28/2023 Encounters Date Type Department Care Team Description 05/09/2024 8:15 AM [facility] - 05/09/2024 11:38 AM [facility] Emergency [facility] Emergency [address] [place] [address] Dorian Bundy MD Hypokalemia Discharge Disposition: Discharged to home or Selfcare 05/09/2024 Travel 05/02/2024 11:33 AM [facility] - 05/02/2024 9:00 PM [facility] Emergency [facility] Emergency [address] [place] [address] Ahmet Diana PAC Nausea and vomiting Discharge Disposition: Discharged to home or Selfcare 05/02/2024 Travel 04/21/2024 9:08 AM [facility] - 04/21/2024 11:24 AM [facility] Emergency [facility] Emergency [address] [place] [address] Andrei Dias MD Neuropathy involving both lower extremities Discharge Disposition: Discharged to home or Selfcare 04/21/2024 Travel from Last 3 Months Family History Medical History Relation Name Comments No Known Problems Father No Known Problems Mother Relation Name Status Comments Father Mother Social History Tobacco Use Types Packs/Day Years Used Date Smoking Tobacco: Every Day Cigarettes 0.5 20 Smokeless Tobacco: Never Tobacco Cessation:Ready to Q uit: Not Asked; Counseling Given: Not Answered Alcohol Use Standard Drinks/Week Comments Not Currently 0 (1 standard drink = 0.6 oz pur e alcohol) [facility] [employer] Answer Date Recorded In the past 12 months has [employer] electric, gas, oil, or water company threatened to shut off services in your home? No 07/25/2023 Social Connection and Isolation Panel [NHANES] A nswer Date Recorded In a typical week, how many times do you talk on the phone with family, friends, or neighbors? Twice a week 07/25/2023 How often do you get together with friends or re latives? Never 07/25/2023 How often do you attend pentecostal or anabaptist serv ices? Never 07/25/2023 Do you belong to any clubs o r organizations such as pentecostal groups, unions, fraternal or athletic groups, or school groups? No 07/25/2023 How often do you attend meet ings of the clubs or organizations you belong to? Never 07/25/2023 Are you , , di vorced, , never , or living with a partner? 07/25/2023 AUDIT-C Answer Date Recorded Q1: How often do you have a drink containing alcohol? Never 07/25/2023 Q2: How many drinks containi ng alcohol do you have on a typical day when you are drinking? Patient does not drink 4 Q3: How often do you have si x or more drinks on one occasion? Never 07/25/2023 Overall Financial Resource Strain (CARDIA) Answe r Date Recorded How hard is it for you to pa y for the very basics like food, housing, medical care, and heating? Not hard at all 07/25/2023 [facility] - Occupational Stress Questionnaire Answer Date Recorded Do you feel stress - tense, restless, nervous, or anxious, or unable to sleep at night because your mind is troubled all the time - these days? To some extent 07/25/2023 Exercise Vital Sign Answer Date Recorde d On average, how many days pe r week do you engage in moderate to strenuous exercise (like a brisk walk)? 5 days 07/25/2023 On average, how many minutes do you engage in exercise at this level? 30 min 07/25/2023 Hunger Vital Sign Answer Date Recorded Within the past 12 months, y ou worried that your food would run out before you got the money to buy more. Never true 07/25/19 24 Within the past 12 months, t he food you bought just didn't last and you didn't have money to get more. Never true 07/25/2023 PRAPARE - Transportation Answer Date Re corded In the past 12 months, has l ack of transportation kept you from medical appointments or from getting medications? No 03/2023 In the past 12 months, has l ack of transportation kept you from meetings, work, or from getting things needed for daily living? No 07/25/2023 Housing Stability Vital Sign Answer Tate e Recorded In the last 12 months, was t here a time when you were not able to pay the mortgage or rent on time? No 07/25/2023 In the last 12 months, how many places have you lived? 1 07/25/2023 In the last 12 months, was t here a time when you did not have a steady place to sleep or slept in a half-way (including now)? No 07/25/2023 Sexually Active Control Partners Comments Not Currently Comments No Sex and Gender Information Value Date Recorded Sex Assigned at Not on file Legal Sex Female 11:56 PM CDT Gender Identity Not on file Sexual Orientation Not on file Last Filed Vital Signs Vital Sign Reading Time Taken Comments Blood Pressure 136/90 05/09/2024 11:00 AM [facility] Pulse 99 05/09/2024 11:00 AM [facility] Temperature 36.1 C (97 F) 05/09/2024 8:25 AM [facility] Respiratory Rate 17 05/09/2024 11:00 AM [facility] Oxygen Saturation 100% 05/09/2024 11:00 AM [facility] Inhaled Oxygen Concentration - - Weight 63.5 kg (140 lb) 05/09/2024 8:25 AM [facility] Height 152.4 cm (5') 05/09/2024 8:25 AM [facility] Body Mass Index 27.34 05/09/2024 8:25 AM [facility] Plan of Treatment Health Maintenance Due Date Last Done Comments Diabetes: Eye Exam 1965 Diabetes: Foot Exam 1965 Hepatitis C Virus (HCV) Screening 1965 TdaP Immunization 1965 Pneumococcal Immunization (50+ years) (1 of 2 - PCV) 10/07/1982 Pap Smear 10/07/1984 Cervical Cancer Screening (CCS) 10/07/1993 HPV/Cotest 10/07/1993 Cologuard 10/07/2013 Immunochemical Fecal Occult Blood 10/07/2013 Zoster Immunization (1 of 2) 10/07/2013 Respiratory Syncytial Virus (RSV) Immunization (Adult) (1 - Risk 60-74 years 1-dose series) 2023 Influenza Immunization (#1) 2023 1005/2022, 01/16/2020, 05/01/2019, Additional history exists SARS-COV-2 Immunization (2 - season) 2023 05/29/2020 Diabetes: Hemoglobin A1c 11/06/2024 025, 05/02/2024, 07/13/2023, Additional history exists Mammogram 03/04/2025 03/04/2024, 01/21/2018 Diabetes: Nephropathy Screening 05/09/2025 05/09/2024, 05/02/2024, 04/21/2024, Additional history exists Colonoscopy 02/17/2034 02/18/2024, 11/05/2019 Colorectal Cancer Screening 02/17/2034 02/18/2024, 11/05/2019 Hepatitis B Immunization Aged Out No longer eligible based on patient's age to complete this topic Meningococcal Immunization (ACWY) Aged Out No longer eligible based on patient's age to complete this topic Rotavirus Immunization Aged Out No lo nger eligible based on patient's age to complete this topic Medical Devices Implanted Type [employer] Device Identifier Shelf Expiration Date Model / Serial / Lot Device Clsr 5fr Mynxgrip Combination Machine Tool Setter Vasc Bln Cath Lock Syr Integrate Sealant 10ml Lf Disp - [id number] Implanted:Qty: 1 on 07/27/2023 by Samantha Hammond MD at [facility] IMPLANT [employer] [id number] / [id number] Procedures Procedure Name Priority Date/Time Associated Diagnosis Comments URINE DRUG SCREEN STAT 05/09/2024 9:2 9 AM [facility] URINALYSIS REFLEX IF INDICATED BY ABNORMAL RESULTS STAT 05/09/2024 9:29 AM [facility] XR ABDOMEN KUB FLAT PLATE STAT 05/09/2024 8:49 AM [facility] GOLD TOP TUBE STAT 05/09/2024 8:32 AM [facility] CBC WITH AUTO DIFFERENTIAL STAT 05/09/2024 8:32 AM [facility] TEST FOR ACETONE/KETONES STAT 05/09/2024 8:32 AM [facility] HEMOGLOBIN A1C W/ ESTIMATED GLUCOSE STAT 05/09/2024 8:32 AM [facility] EXTRA TUBES STAT 05/09/2024 8:32 AM [facility] PROTIME (PT) (PROTHROMBIN TIME) STAT 05/09/2024 8:32 AM [facility] LIPASE STAT 05/09/2024 8:32 AM [facility] ETHYL ALCOHOL (ETHANOL) STAT 05/09/2024 8:32 AM [facility] CMP (COMPREHENSIVE METABOLIC PANEL) STAT 05/09/2024 8:32 AM [facility] COMPLETE BLOOD COUNT (CBC) WITH DIFF STAT 05/09/2024 8:32 AM [facility] POCT GLUCOSE STAT 05/09/2024 8:28 AM [facility] POCT GLUCOSE STAT 05/02/2024 8:32 PM [facility] TEST FOR ACETONE/KETONES STAT 05/02/2024 7:46 PM [facility] BASIC METABOLIC PANEL W/ CALCIUM TOTAL Timed 05/02/2024 7:46 PM [facility] POCT GLUCOSE STAT 05/02/2024 7:32 PM [facility] POCT GLUCOSE STAT 05/02/2024 6:27 PM [facility] BASIC METABOLIC PANEL W/ CALCIUM TOTAL Timed 05/02/2024 4:39 PM [facility] POCT GLUCOSE STAT 05/02/2024 4:27 PM [facility] XR CHEST 2 VIEWS STAT 05/02/2024 3:04 PM [facility] TEST FOR ACETONE/KETONES STAT 05/02/2024 2:55 PM [facility] URINE DRUG SCREEN STAT 05/02/2024 1:4 5 PM [facility] URINALYSIS REFLEX IF INDICATED BY ABNORMAL RESULTS STAT 05/02/2024 1:[address] ABDOMEN PELVIS W/ CONTRAST Stat with Interpretation 05/02/2024 1:37 PM [facility] MANUAL DIFFERENTIAL STAT 05/02/2024 12:28 PM [facility] CBC WITH AUTO DIFFERENTIAL STAT 05/02/2024 12:28 PM [facility] HEMOGLOBIN A1C W/ ESTIMATED GLUCOSE STAT 05/02/2024 12:28 PM [facility] PHOSPHORUS (PO4) STAT 05/02/2024 12:28 PM [facility] MAGNESIUM (MG) STAT 05/02/2024 12:28 PM [facility] LIPASE STAT 05/02/2024 12:28 PM [facility] CMP (COMPREHENSIVE METABOLIC PANEL) STAT 05/02/2024 12:28 PM [facility] COMPLETE BLOOD COUNT (CBC) WITH DIFF STAT 05/02/2024 12:28 PM [facility] CRITICAL CARE Routine 05/02/2024 11:35 AM [facility] RSV,SARS-COV-2,INF LUENZA A&B BY PCR STAT 05/02/2024 10:53 AM [facility] XR PELVIS 1 OR 2 VIEWS STAT 04/21/2024 10:17 AM [facility] XR CHEST SINGLE VIEW PORTABLE STAT 04/21/2024 10:17 AM [facility] GOLD TOP TUBE STAT 04/21/2024 9:32 AM [facility] BLUE TOP TUBE STAT 04/21/2024 9:32 AM [facility] CBC WITH AUTO DIFFERENTIAL STAT 04/21/2024 9:32 AM [facility] EXTRA TUBES STAT 04/21/2024 9:32 AM [facility] CMP (COMPREHENSIVE METABOLIC PANEL) STAT 04/21/2024 9:32 AM [facility] COMPLETE BLOOD COUNT (CBC) WITH DIFF STAT 04/21/2024 9:32 AM [facility] EKG 12 LEAD STAT 04/21/2024 9:13 AM [facility] EKG SCAN 04/21/2024 12:00 AM [facility] from Last 3 Months Results * (ABNORMAL) Urinalysis w/ Reflex (05/09/2024 9:29 AM [facility]) Only the most recent of2 resultswithin the time period is included. SPECIFIC GRAVITY 1.015 1.003 - 1.030 05/09/2024 11:10 AM [facility] URINE PH 6.0 5.0 - 9.0 05/09/2024 11:10 AM [facility] WBC ESTERASE Negative Negative 05/09/2024 11:10 AM [facility] NITRITE Negative Negative 05/09/2024 11:10 AM [facility] PROTEIN, RANDOM URINE 500 mg/dL(A) Negative 05/09/2024 11:10 AM [facility] URINE GLUCOSE, QUAL 1000 mg/dL(A) Negative 05/09/2024 11:10 AM [facility] URINE KETONES 150 mg/dL(A) Negative 11:10 AM [facility] UROBILINOGEN Normal Normal mg/dL 05/09/2024 11:10 AM [facility] URINE BLOOD 25 /uL(A) Negative dafne/ul 05/09/2024 11:10 AM [facility] URINALYSIS COLOR Yellow 05/09/2024 11:10 AM [facility] URINALYSIS CLARITY Slightly Cloudy 05/09/2024 11:10 AM [facility] WBC (Urine) 0-5 Negative, 0-5 /hpf 05/09/2024 11:10 AM [facility] URINE RBC'S 11-20(A) Negative, 0-2 /hpf 05/09/2024 11:10 AM [facility] EPITHELIAL CELLS Occasional /lpf 05/09/2024 11:10 AM [facility] BACTERIA, URINE Few(A) Negative /hpf 05/09/2024 11:10 AM [facility] Urine URINE SPECIMEN / Unknown Non-Phlebotomy Collection / Unknown 05/09/2024 9:29 AM [facility] 05/09/2024 10:42 AM [facility] us Dorian Bundy MD URINE ORDERABLES Final Result [facility] [place] [address] * (ABNORMAL) Urine Drug Screen (05/09/2024 9:29 AM [facility]) Only the most recent of2 resultswithin the time period is included. UR AMPHETAMINE NON DETECTED NON DETECTED 05/09/2024 11:01 AM [facility] Comment: FOR MEDICAL USE ONLY. CUTOFF CONCENTRATION FOR DETECTED RESULT: AMPHETAMINE: 500 NG/ML UR BENZODIAZEPINES NON DETECTED NON DETECTED 05/09/2024 11:01 AM [facility] Comment: FOR MEDICAL USE ONLY. CUTOFF CONCENTRATION FOR DETECTED RESULT: BENZODIAZAPINE: 200 NG/ML UR COCAINE METABOLITE NON DETECTED NON DETECTED 05/09/2024 11:01 AM [facility] Comment: FOR MEDICAL USE ONLY. CUTOFF CONCENTRATION FOR DETECTED RESULT: COCAINE: 150 NG/ML UR OPIATES NON DETECTED NON DETECTED 05/09/2024 11:01 AM [facility] Comment: FOR MEDICAL USE ONLY. CUTOFF CONCENTRATION FOR DETECTED RESULT: OPIATES: 300 NG/ML UR PHENCYCLIDINE NON DETECTED NON DETECTED 05/09/2024 11:01 AM [facility] Comment: FOR MEDICAL USE ONLY. CUTOFF CONCENTRATION FOR DETECTED RESULT: PCP: 25 NG/ML UR CANNABINOID DETECTED(A) NON DETECTED 05/09/2024 11:01 AM [facility] Comment: FOR MEDICAL USE ONLY. CUTOFF CONCENTRATION FOR DETECTED RESULT: THC (MARIJUANA): 50 NG/ML UR BARBITURATE NON DETECTED NON DETECTED 05/09/2024 11:01 AM [facility] Comment: FOR MEDICAL USE ONLY. CUTOFF CONCENTRATION FOR DETECTED RESULT: BARBITUATES: 200 NG/ML UR FENTANYL NON DETECTED NON DETECTED 05/09/2024 11:01 AM [facility] Comment: FOR MEDICAL USE ONLY. CUTOFF CONCENTRATION FOR DETECTED RESULT: FENTANYL: 1.0 NG/ML Urine Non-Phlebotomy Collection / Unknown 05/09/2024 9:29 AM [facility] 05/09/2024 10:42 AM [facility] us Dorian Bundy MD URINE ORDERABLES Final Result [facility] [place] [address] * XR ABDOMEN KUB FLAT PLATE (05/09/2024 8:49 AM [facility]) Anatomical Region Laterality Modality Abdomen N/A Digital Radiogra phy 05/09/2024 9:01 AM [facility] Impressions 05/09/2024 9:04 AM [facility] IMPRESSION: Nonspecific gas pattern with moderate stool burden. Narrative 05/09/2024 9:04 AM [facility] EXAM DESCRIPTION: XR ABDOMEN KUB FLAT PLATE REASON FOR STUDY: abd pain and n/v x 2 years worsening yesterday. TECHNIQUE: Supine view COMPARISON: 05/02/2024 CT FINDINGS: Nonspecific gas pattern minimal distention small and large bowel. Moderate stool burden throughout. Probable vascular calcification over the right SI joint region. Moderate bony degenerative changes thoracolumbar junction. THIS IS AN ELECTRONICALLY VERIFIED FINAL REPORT 05/09/2024 9:01 AM - Electronically signed by Abdoulaye Cheema M.D. RB: RB Report ID: [id number] Reading Location: [id number] Procedure Note Abdoulaye Cheema MD - 05/09/2024 EXAM DESCRIPTION: XR ABDOMEN KUB FLAT PLATE REASON FOR STUDY: abd pain and n/v x 2 years worsening yesterday. TECHNIQUE: Supine view COMPARISON: 05/02/2024 CT FINDINGS: Nonspecific gas pattern minimal distention small and large bowel. Moderate stool burden throughout. Probable vascular calcification over the right SI joint region. Moderate bony degenerative changes thoracolumbar junction. THIS IS AN ELECTRONICALLY VERIFIED FINAL REPORT 05/09/2024 9:01 AM - Electronically signed by Abdoulaye Cheema M.D. RB: RB Report ID: [id number] Reading Location: [id number] IMPRESSION: Nonspecific gas pattern with moderate stool burden. us Dorian Bundy MD IMG DIAGNOSTIC ORDERABLES Final Result * (ABNORMAL) Hemoglobin A1C w/ Estimated Glucose (05/09/2024 8:32 AM [facility]) Only the most recent of2 resultswithin the time period is included. HGB-A1C 8.6(H) 4.0 - 6.0 % 05/09/2024 11:23 AM [facility] Est Average Glucose 200.1 mg/dL 05/09/2024 11:23 AM [facility] Blood Venipuncture / Unknown 05/09/2024 8:32 AM [facility] 05/09/2024 8:47 AM [facility] Narrative [facility] - 05/09/2024 11:23 AM [facility] HEMOGLOBIN A1C: DIABETIC PATIENTS: WELL-CONTROLLED: 6.2 - 7.0 INTERMEDIATE WELL-CONTROLLED: 7.0 - 9.0 POORLY-CONTROLLED: >9.0 Specimens containing greater than 5% of Hemoglobin F may result in lower than expected % HbA1C results. us Dorian Bundy MD CHEMISTRY ORDERABLES Final Resul t Performing Organization Address City/[facility] Co de Phone Number [facility] [address] [place] [address] * Gold Top Tube (05/09/2024 8:32 AM [facility]) Only the most recent of2 resultswithin the time period is included. Blood No Phlebotomy Charged / Unknown 05/09/2024 8:32 AM [facility] 05/09/2024 8:48 AM [facility] us Dorian Bundy MD CHEMISTRY ORDERABLES Final Resul t Performing Organization Address City/[facility]/ZIP Co de Phone Number [facility] [address] [place] [address] * (ABNORMAL) CBC with Auto Differential (05/09/2024 8:32 AM [facility]) Only the most recent of3 resultswithin the time period is included. WBC 13.13(H) 4.00 - 12.00 10(3)/mcL 05/09/2024 9:13 AM [facility] RBC 5.56(H) 3.80 - 5.30 10(6)/mcL 05/09/2024 9:13 AM [facility] HEMOGLOBIN (HGB) 16.8(H) 12.0 - 15.8 g/dL 05/09/2024 9:13 AM [facility] HEMATOCRIT (HCT) 49.0(H) 36.0 - 47.0 % 05/09/2024 9:13 AM [facility] MCV 88.1 82.0 - 96.0 fL 05/09/2024 9:13 AM [facility] MCH 30.2 26.0 - 34.0 pg 05/09/2024 9:13 AM [facility] MCHC 34.3 31.0 - 36.0 g/dL 05/09/2024 9:13 AM [facility] PLATELET COUNT 227 140 - 440 10(3)/mcL 05/09/2024 9:13 AM [facility] RDW 12.5 11.8 - 15.5 % 05/09/2024 9:13 AM [facility] MPV 13.1(H) 9.7 - 12.4 fL 05/09/2024 9:13 AM [facility] NEUTROPHILS 72.3 47.0 - 73.0 % 05/09/2024 9:13 AM [facility] LYMPHOCYTES 20.4 18.0 - 42.0 % 05/09/2024 9:13 AM [facility] MONOCYTES 5.0 4.0 - 12.0 % 05/09/2024 9:13 AM [facility] EOSINOPHILS 1.8 0.0 - 5.0 % 05/09/2024 9:13 AM [facility] BASOPHILS 0.5 0.0 - 1.0 % 05/09/2024 9:13 AM [facility] ABSOLUTE NEUTROPHILS 9.50(H) 1.60 - 7.70 10(3)/[facility] 05/09/2024 9:13 AM [facility] ABSOLUTE LYMPHOCYTES 2.68 1.30 - 3.20 10(3)/[facility] 05/09/2024 9:13 AM [facility] ABSOLUTE MONOCYTES 0.65 0.20 - 1.00 10(3)/[facility] 05/09/2024 9:13 AM [facility] ABSOLUTE EOSINOPHIL 0.24 0.00 - 0.40 10(3)/[facility] 05/09/2024 9:13 AM [facility] ABSOLUTE BASOPHILS 0.06 0.00 - 0.10 10(3)/[facility] 05/09/2024 9:13 AM [facility] NRBC PER 100 WBC 0 05/09/19 25 9:13 AM [facility] RESULTS ARE CONSISTENT WITH PERIPHERAL SMEAR REVIEW Yes 05/09/2024 9:13 AM [facility] RBC MORPHOLOGY CONSISTENT WITH INDICES Yes 05/09/2024 9:13 AM [facility] LARGE PLATELETS 1+ 9:13 AM [facility] Blood Venipuncture / Unknown 05/09/2024 8:32 AM [facility] 05/09/2024 8:47 AM [facility] us Dorian Bundy MD HEMATOLOGY ORDERABLES Final Resu lt [facility] [place] [address] * (ABNORMAL) PT / INR (05/09/2024 8:32 AM [facility]) PROTIME-PATIENT 11.3(L) 11.6 - 14.8 sec 05/09/2024 9:05 AM [facility] INR 0.8(L) 0.9 - 1.2 05/09/2024 9:05 AM [facility] Comment: Therapeutic Ranges INR = 2.0-3.0: Venous thromb, atrial fib, pul embolism, tissue heart valve, ami. INR = 2.5-3.5: Mechanical heart valve Critical value for INR is >/= 4.5 Blood Venipuncture / Unknown 05/09/2024 8:32 AM [facility] 05/09/2024 8:47 AM [facility] us Dorian Bundy MD HEMATOLOGY ORDERABLES Final Resu lt Performing Organization Address City/[facility]/ZIP Co de Phone Number [facility] [address] [place] [address] * Lipase (05/09/2024 8:32 AM [facility]) Only the most recent of2 resultswithin the time period is included. LIPASE 36 8 - 78 U/L 05/09/2024 9:09 AM [facility] Blood Venipuncture / Unknown 05/09/2024 8:32 AM [facility] 05/09/2024 8:47 AM [facility] us Dorian Bundy MD CHEMISTRY ORDERABLES Final Resul t Performing Organization Address City/[facility]/ZIP Co de Phone Number [facility] [address] [place] [address] * ETOH Level (05/09/2024 8:32 AM [facility]) ETHANOL <10 <10 mg/dL 05/09/2024 9:0 9 AM [facility] Blood Venipuncture / Unknown 05/09/2024 8:32 AM [facility] 05/09/2024 8:47 AM [facility] us Dorian Bundy MD CHEMISTRY ORDERABLES Final Resul t [facility] [address] [place] [address] * (ABNORMAL) CMP (05/09/2024 8:32 AM [facility]) Only the most recent of3 resultswithin the time period is included. SODIUM 140 136 - 145 mmol/L 05/09/2024 9:09 AM [facility] POTASSIUM 3.1(L) 3.5 - 5.1 mmol/L 05/09/2024 9:09 AM [facility] CHLORIDE 99 98 - 107 mmol/L 05/09/2024 9:09 AM [facility] CO2, VENOUS 23 22 - 30 mmol/L 05/09/2024 9:09 AM [facility] ANION GAP 21.1(H) <18.0 mmol/L 05/09/2024 9:09 AM [facility] GLUCOSE 266(H) 70 - 99 mg/dL 05/09/2024 9:09 AM [facility] BUN 12 10 - 20 mg/dL 05/09/2024 9:09 AM [facility] CREATININE, BLOOD 0.86 0.60 - 1.00 mg/dL 05/09/2024 9:09 AM [facility] BUN/CREATININE RATIO 14 12 - 20 ratio 05/09/2024 9:09 AM [facility] TOTAL PROTEIN 8.6(H) 6.0 - 8.0 g/dL 05/09/2024 9:09 AM [facility] ALBUMIN 4.4 3.5 - 5.0 g/dL 05/09/2024 9:09 AM [facility] A/G RATIO 1.0 1.0 - 2.2 05/09/2024 9:09 AM [facility] CALCIUM 9.9 8.7 - 10.5 mg/dL 05/09/2024 9:09 AM [facility] T BILI 0.5 0.2 - 1.2 mg/dL 05/09/2024 9:09 AM [facility] SGOT (AST) 18 6 - 42 U/L 05/09/2024 9:09 AM [facility] SGPT (ALT) <6(L) 6 - 55 U/L 05/09/2024 9:09 AM [facility] ALKALINE PHOSPHATASE 108 40 - 150 U/L 05/09/2024 9:09 AM [facility] GFR, ESTIMATED >60 >=60 05/09/2024 9:09 AM [facility] Comment: Creatinine Clearance is the preferred criteria for selecting drug dose adjustments in renally impaired patients. The GFR is provided as additional pertinent clinical information. GFR is reported in mL/min/1.73 sq m. Calculation based on the Chronic Kidney Disease Epidemiology Collaboration (CKD- EPI) equation refit without adjustment for race. GFR, EST. >60 >=60 025 9:09 AM [facility] GFR, EST. NONAFRICAN >60 >=60 05/09/2024 9:09 AM [facility] Blood Venipuncture / Unknown 05/09/2024 8:32 AM [facility] 05/09/2024 8:47 AM [facility] us Dorian Bundy MD CHEMISTRY ORDERABLES Final Resul t [facility] [place] [address] * ACETONE QUAL (05/09/2024 8:32 AM [facility]) Only the most recent of3 resultswithin the time period is included. ACETONE Negative Negative 05/09/2024 11:24 AM [facility] Blood No Phlebotomy Charged / Unknown 05/09/2024 8:32 AM [facility] 05/09/2024 8:48 AM [facility] us Dorian Bundy MD CHEMISTRY ORDERABLES Final Resul t Performing Organization Address City/[facility]/ZIP Co de Phone Number [facility] [place] [address] * (ABNORMAL) POCT Glucose (05/09/2024 8:28 AM [facility]) Only the most recent of5 resultswithin the time period is included. GLUCOSE,BEDSID E POCT 245(H) 70 - 99 mg/dL 05/09/2024 8:34 AM [facility] Blood 05/09/2024 8:28 AM [facility] 05/09/2024 8:34 AM [facility] us None Provider POINT OF CARE TESTING Final Resu lt Performing Organization Address [facility] Co de Phone Number [facility] [address] [place] [address] * (ABNORMAL) BMP with Ca, Total (05/02/2024 7:46 PM [facility]) Only the most recent of2 resultswithin the time period is included. SODIUM 145 136 - 145 mmol/L 05/02/2024 8:33 PM [facility] POTASSIUM 3.2(L) 3.5 - 5.1 mmol/L 05/02/2024 8:33 PM [facility] CHLORIDE 106 98 - 107 mmol/L 05/02/2024 8:33 PM [facility] CO2, VENOUS 30 22 - 30 mmol/L 05/02/2024 8:33 PM [facility] ANION GAP 12.2 <18.0 mmol/L 05/02/2024 8:33 PM [facility] GLUCOSE 143(H) 70 - 99 mg/dL 05/02/2024 8:33 PM [facility] BUN 22(H) 10 - 20 mg/dL 05/02/2024 8:33 PM [facility] CREATININE, BLOOD 0.90 0.60 - 1.00 mg/dL 05/02/2024 8:33 PM [facility] BUN/CREATININE RATIO 24(H) 12 - 20 ratio 05/02/2024 8:33 PM [facility] CALCIUM 8.9 8.7 - 10.5 mg/dL 05/02/2024 8:33 PM [facility] GFR, ESTIMATED >60 >=60 05/02/2024 8:33 PM [facility] Comment: Creatinine Clearance is the preferred criteria for selecting drug dose adjustments in renally impaired patients. The GFR is provided as additional pertinent clinical information. GFR is reported in mL/min/1.73 sq m. Calculation based on the Chronic Kidney Disease Epidemiology Collaboration (CKD- EPI) equation refit without adjustment for race. GFR, EST. >60 >=60 025 8:33 PM [facility] GFR, EST. NONAFRICAN >60 >=60 05/02/2024 8:33 PM [facility] Blood Venipuncture / Unknown 05/02/2024 7:46 PM [facility] 05/02/2024 8:16 PM [facility] Ahmet Diana PAC CHEMISTRY ORDERABLES Final Result [facility] [place] [address] * XR CHEST 2 VIEWS (05/02/2024 3:04 PM [facility]) Anatomical Region Laterality Modality Chest N/A Digital Radiogra phy 05/02/2024 3:25 PM [facility] Impressions 05/02/2024 3:28 PM [facility] IMPRESSION: No acute findings. Narrative 05/02/2024 3:28 PM [facility] EXAM DESCRIPTION: XR CHEST 2 VIEWS REASON FOR STUDY: Nauseas, vomitting, diarrhea, cough since midnight. Hx. DM. HTN TECHNIQUE: Two views COMPARISON: 04/21/2024 FINDINGS: Heart size and vascularity appear normal. Aortic arch well-defined on the left. Lungs are well expanded without consolidation, effusion or pneumothorax. THIS IS AN ELECTRONICALLY VERIFIED FINAL REPORT 05/02/2024 3:25 PM - Electronically signed by Abdoulaye Cheema M.D. RB: AMANDA Report ID: [id number] Reading Location: [id number] Procedure Note Abdoulaye Cheema MD - 05/02/2024 EXAM DESCRIPTION: XR CHEST 2 VIEWS REASON FOR STUDY: Nauseas, vomitting, diarrhea, cough since midnight. Hx. DM. HTN TECHNIQUE: Two views COMPARISON: 04/21/2024 FINDINGS: Heart size and vascularity appear normal. Aortic arch well-defined on the left. Lungs are well expanded without consolidation, effusion or pneumothorax. THIS IS AN ELECTRONICALLY VERIFIED FINAL REPORT 05/02/2024 3:25 PM - Electronically signed by Abdoulaye Cheema M.D. RB: AMANDA Report ID: [id number] Reading Location: [id number] IMPRESSION: No acute findings. Ahmet Diana PAC IMG DIAGNOSTIC ORDER BLAIRE Final Result * CT ABDOMEN PELVIS W/ CONTRAST (05/02/2024 1:37 PM [facility]) Anatomical Region Laterality Modality Abdomen N/A Computed Tomogra phy 05/02/2024 2:23 PM [facility] Impressions 05/02/2024 2:26 PM [facility] IMPRESSION: No acute finding. Narrative 05/02/2024 2:26 PM [facility] EXAM DESCRIPTION: CT ABDOMEN PELVIS W/ CONTRAST REASON FOR STUDY: LLQ pain with N/V/D since last night. Hx of HTN, DM, DKA, and cocaine abuse TECHNIQUE: CT scan of the abdomen and pelvis performed with intravenous and without oral contrast using helical scanning technique with dynamic intravenous contrast injection. Reconstructed coronal and sagittal MPR images reviewed. All images stored on PACS. Automated exposure control was used as a dose optimization technique for this examination. CONTRAST TYPE/DOSE: 71mL of IOPAMIDOL 76 % IV SOLN injected via Intravenous COMPARISON: Most recent comparison 07/25/2023. Mild fatty infiltration FINDINGS: LOWER CHEST: No significant pulmonary abnormalities. No effusion. LIVER: Normal size.. No identified cystic or solid masses. GALLBLADDER: No radiopaque stones or wall thickening. BILE DUCTS: No intrahepatic or extrahepatic ductal dilatation. SPLEEN: Normal size. No focal lesions. PANCREAS: No identified cystic or solid masses. No significant calcifications. No adjacent inflammation or peripancreatic fluid collections. Pancreatic duct not dilated. ADRENALS: Normal. KIDNEYS/URINARY TRACT: No identified significant solid masses. Stable multiple right renal cysts. No visualized stones. No hydronephrosis or hydroureter. Symmetric enhancement. Urinary bladder is unremarkable. GI: No dilated bowel loops. No obvious wall thickening. Normal appendix. No significant diverticular disease. PERITONEUM: No ascites or free air. RETROPERITONEUM: No mass or adenopathy. REPRODUCTIVE: No significant abnormality. VASCULATURE: No abdominal aortic aneurysm. MUSCULOSKELETAL: Stable minimal loss of height along the inferior endplate of L1. No acute osseous abnormality. OTHER: No other abnormality. THIS IS AN ELECTRONICALLY VERIFIED FINAL REPORT 05/02/2024 2:23 PM - Electronically signed by Jassi Best M.D. LC: SHAHBAZ Report ID: [id number] Reading Location: [id number] Procedure Note Deisy Best MD - 05/02/2024 EXAM DESCRIPTION: CT ABDOMEN PELVIS W/ CONTRAST REASON FOR STUDY: LLQ pain with N/V/D since last night. Hx of HTN, DM, DKA, and cocaine abuse TECHNIQUE: CT scan of the abdomen and pelvis performed with intravenous and without oral contrast using helical scanning technique with dynamic intravenous contrast injection. Reconstructed coronal and sagittal MPR images reviewed. All images stored on PACS. Automated exposure control was used as a dose optimization technique for this examination. CONTRAST TYPE/DOSE: 71mL of IOPAMIDOL 76 % IV SOLN injected via Intravenous COMPARISON: Most recent comparison 07/25/2023. Mild fatty infiltration FINDINGS: LOWER CHEST: No significant pulmonary abnormalities. No effusion. LIVER: Normal size.. No identified cystic or solid masses. GALLBLADDER: No radiopaque stones or wall thickening. BILE DUCTS: No intrahepatic or extrahepatic ductal dilatation. SPLEEN: Normal size. No focal lesions. PANCREAS: No identified cystic or solid masses. No significant calcifications. No adjacent inflammation or peripancreatic fluid collections. Pancreatic duct not dilated. ADRENALS: Normal. KIDNEYS/URINARY TRACT: No identified significant solid masses. Stable multiple right renal cysts. No visualized stones. No hydronephrosis or hydroureter. Symmetric enhancement. Urinary bladder is unremarkable. GI: No dilated bowel loops. No obvious wall thickening. Normal appendix. No significant diverticular disease. PERITONEUM: No ascites or free air. RETROPERITONEUM: No mass or adenopathy. REPRODUCTIVE: No significant abnormality. VASCULATURE: No abdominal aortic aneurysm. MUSCULOSKELETAL: Stable minimal loss of height along the inferior endplate of L1. No acute osseous abnormality. OTHER: No other abnormality. THIS IS AN ELECTRONICALLY VERIFIED FINAL REPORT 05/02/2024 2:23 PM - Electronically signed by Jassi Best M.D. LC: SHAHBAZ Report ID: [id number] Reading Location: [id number] IMPRESSION: No acute finding. Ahmet Diana PAC IMG CT ORDERABLES Fi nal Result * (ABNORMAL) Manual Differential (05/02/2024 12:28 PM [facility]) BANDS % 6.0 % 05/02/2024 1:25 PM [facility] NEUTROPHILS % 83.0(H) 47.0 - 73.0 % 05/02/2024 1:25 PM [facility] LYMPHOCYTES % 7.0(L) 18.0 - 42.0 % 05/02/2024 1:25 PM [facility] MONOCYTES % 3.0(L) 4.0 - 12.0 % 05/02/2024 1:25 PM [facility] MYELOCYTES % 1.0(H) <=0.0 % 05/02/2024 1:25 PM [facility] NEUTROPHILS ABSOLUTE 19.75(H) 1.60 - 7.70 10(3)/mcL 05/02/2024 1:25 PM [facility] LYMPHOCYTES ABSOLUTE 1.55 1.30 - 3.20 10(3)/mcL 05/02/2024 1:25 PM [facility] MONOCYTES ABSOLUTE 0.67 0.20 - 1.00 10(3)/mcL 05/02/2024 1:25 PM [facility] RBC MORPHOLOGY CONSISTENT WITH INDICES Yes 05/02/2024 1:25 PM [facility] LARGE PLATELETS 1+ 1:25 PM [facility] REACTIVE LYMPHOCYTES 3 05/02/2024 1:25 PM [facility] WBC MORPH STATUS Normal 05/02/19 1:25 PM [facility] Blood Venipuncture / Unknown 05/02/2024 12:28 PM [facility] 05/02/2024 12:41 PM [facility] Narrative [facility] - 05/02/2024 1:25 PM [facility] Anisocytosis Ahmet Diana PAC HEMATOLOGY ORDERABLE S Final Result [facility] [address] [place] [address] * Phosphorus (PO4), Serum (05/02/2024 12:28 PM [facility]) PHOSPHORUS 2.8 2.5 - 4.5 mg/dL 05/02/2024 4:40 PM [facility] Blood Venipuncture / Unknown 05/02/2024 12:28 PM [facility] 05/02/2024 12:41 PM [facility] Ahmet Diana PAC CHEMISTRY ORDERABLES Final Result Performing Organization Address City/[facility]/ZIP Co de Phone Number [facility] [address] [place] [address] * (ABNORMAL) Magnesium (Mg) (05/02/2024 12:28 PM [facility]) MAGNESIUM 1.5(L) 1.6 - 2.6 mg/dL 05/02/2024 4:40 PM [facility] Blood Venipuncture / Unknown 05/02/2024 12:28 PM [facility] 05/02/2024 12:41 PM [facility] us Ahmet Diana PAC CHEMISTRY ORDERABLES Final Result [facility] [address] [place] [address] * Critical Care (05/02/2024 11:35 AM [facility]) Narrative Andrei Dias MD - 05/02/2024 11:35 AM [facility] Ahmet Diana PAC 05/02/2024 8:41 PM Critical Care Performed by: Ahmet Diana PAC Authorized by: Ahmet Diana PAC Critical care provider statement: Critical care time (minutes): 30 Critical care was necessary to treat or prevent imminent or life-threatening deterioration of the following conditions: Endocrine crisis Critical care was time spent personally by me on the following activities: Ordering and performing treatments and interventions, ordering and review of laboratory studies, pulse oximetry, re-evaluation of patient's condition, ordering and review of radiographic studies, review of old charts, evaluation of patient's response to treatment, development of treatment plan with patient or surrogate, obtaining history from patient or surrogate and examination of patient I assumed direction of critical care for this patient from another provider in my specialty: no us Ahmet Diana PAC PROCEDURE/MINOR SURG ICAL ORDERABLES Final Result * RSV,SARS-COV-2,INFLUENZA A&B BY PCR (05/02/2024 10:53 AM [facility]) FLU A Negative Negative, Error 05/02/2024 11:43 AM [facility] FLU B Negative Negative 05/02/2024 11:43 AM [facility] RESP SYNC VIRUS Negative Negative 11:43 AM [facility] SARSCOV2 NOT DETECTED (Reference Range for this test is Not Detected) 05/02/2024 11:43 AM [facility] Comment:This test was perfor med by a Reverse Family Sociologist PCR Method. Swab NASOPHARYNGEAL SWAB / Unknown Non-Phlebotomy Collection / Unknown 05/02/2024 10:53 AM [facility] 05/02/2024 11:03 AM [facility] Ahmet Diana PAC MICROBIOLOGY - GENER AL ORDERABLES Final Result [facility] [address] [place] [address] * XR PELVIS 1 OR 2 VIEWS (04/21/2024 10:17 AM [facility]) Anatomical Region Laterality Modality Abdomen, Pelvis N/A Digital Radiogra phy 04/21/2024 10:4 5 AM [facility] Impressions 04/21/2024 10:48 AM [facility] IMPRESSION: No acute osseous abnormality. Minimal bilateral hip osteoarthritis. Narrative 04/21/2024 10:48 AM [facility] EXAM DESCRIPTION: XR PELVIS 1 OR 2 VIEWS REASON FOR STUDY: Bilateral hip pain for 3-4 days. TECHNIQUE: AP pelvis view COMPARISON: CT chest, abdomen, pelvis 07/25/2023 FINDINGS: BONES/JOINTS: No acute fracture. Minimal bilateral hip osteoarthritis. The iliopectineal and ilioischial lines are intact. SOFT TISSUES: Within normal limits. THIS IS AN ELECTRONICALLY VERIFIED FINAL REPORT 04/21/2024 10:45 AM - Electronically signed by Woodrow Allen M.D. LB: CHERI Report ID: [id number] Reading Location: [id number] Procedure Note Woodrow Allen MD - 04/21/2024 EXAM DESCRIPTION: XR PELVIS 1 OR 2 VIEWS REASON FOR STUDY: Bilateral hip pain for 3-4 days. TECHNIQUE: AP pelvis view COMPARISON: CT chest, abdomen, pelvis 07/25/2023 FINDINGS: BONES/JOINTS: No acute fracture. Minimal bilateral hip osteoarthritis. The iliopectineal and ilioischial lines are intact. SOFT TISSUES: Within normal limits. THIS IS AN ELECTRONICALLY VERIFIED FINAL REPORT 04/21/2024 10:45 AM - Electronically signed by Woodrow Allen M.D. LB: LB Report ID: [id number] Reading Location: [id number] IMPRESSION: No acute osseous abnormality. Minimal bilateral hip osteoarthritis. Andrei Dias MD IMG DIAGNOSTIC ORDERABLES Final Result * XR CHEST SINGLE VIEW PORTABLE (04/21/2024 10:17 AM [facility]) Anatomical Region Laterality Modality Chest N/A Digital Radiogra phy 04/21/2024 10:5 0 AM [facility] Impressions 04/21/2024 10:53 AM [facility] IMPRESSION: Mild diffuse coarse interstitial markings may be related to edema or atypical pneumonia. Narrative 04/21/2024 10:53 AM [facility] EXAM DESCRIPTION: XR CHEST SINGLE VIEW PORTABLE REASON FOR STUDY: Bilateral leg swelling for 1.5 weeks. Increasing shortness of breath. TECHNIQUE: Frontal radiographic view of the chest COMPARISON: Chest radiograph 07/27/2023 FINDINGS: LUNGS/PLEURAE: There is mild diffuse coarse interstitial markings. No large pleural effusion. There is no pneumothorax. HEART/MEDIASTINUM: Heart size is normal. Normal mediastinal and hilar contours. Atherosclerotic calcification of the thoracic aorta. HARDWARE/LINES/TUBES: None. BONES: Presumed postoperative change in the lateral left clavicle is unchanged. Mild thoracic spondylosis. THIS IS AN ELECTRONICALLY VERIFIED FINAL REPORT 04/21/2024 10:50 AM - Electronically signed by Woodrow Allen M.D. LB: LB Report ID: [id number] Reading Location: [id number] Procedure Note Woodrow Allen MD - 04/21/2024 EXAM DESCRIPTION: XR CHEST SINGLE VIEW PORTABLE REASON FOR STUDY: Bilateral leg swelling for 1.5 weeks. Increasing shortness of breath. TECHNIQUE: Frontal radiographic view of the chest COMPARISON: Chest radiograph 07/27/2023 FINDINGS: LUNGS/PLEURAE: There is mild diffuse coarse interstitial markings. No large pleural effusion. There is no pneumothorax. HEART/MEDIASTINUM: Heart size is normal. Normal mediastinal and hilar contours. Atherosclerotic calcification of the thoracic aorta. HARDWARE/LINES/TUBES: None. BONES: Presumed postoperative change in the lateral left clavicle is unchanged. Mild thoracic spondylosis. THIS IS AN ELECTRONICALLY VERIFIED FINAL REPORT 04/21/2024 10:50 AM - Electronically signed by Woodrow Allen M.D. LB: LB Report ID: [id number] Reading Location: [id number] IMPRESSION: Mild diffuse coarse interstitial markings may be related to edema or atypical pneumonia. Andrei Dias MD IMG DIAGNOSTIC ORDERABLES Final Result * Blue Top Tube (04/21/2024 9:32 AM [facility]) Blood No Phlebotomy Charged / Unknown 04/21/2024 9:32 AM [facility] 04/21/2024 10:11 AM [facility] Andrei Dias MD HEMATOLOGY ORDERABLES Tiffany l Result [facility] [place] [address] * EKG 12 LEAD (04/21/2024 9:13 AM [facility]) Ventricular Rate 92 BPM EXTERNAL EKG Atrial Rate 92 BPM EXTERNAL EKG P-R Interval 126 ms EXTERNAL EKG QRS Duration 76 ms EXTERNAL EKG Q-T Duration 368 ms EXTERNAL EKG QTC CALCULATION 455 ms EXTERNAL EKG P Falcon -1 degrees EXTERNAL EKG R Falcon 44 degrees EXTERNAL EKG T Falcon 22 degrees EXTERNAL EKG 04/21/2024 9:13 AM [facility] Impressions EXTERNAL EKG - 04/22/2024 3:05 PM [facility] Normal sinus rhythm Normal ECG When compared with ECG of 25-JUL-2023 17:57, No significant change was found Confirmed by Gregory Chopra ([id number]) on 04/22/2024 3:05:13 PM Narrative Procedure Note Gregory Chopra MD - 04/22/2024 IMPRESSION: Normal sinus rhythm Normal ECG When compared with ECG of 25-JUL-2023 17:57, No significant change was found Confirmed by Gregory Chopra ([id number]) on 04/22/2024 3:05:13 PM us Andrei Dias MD IMG ECG ORDERABLES Final R esult EXTERNAL EKG * EKG SCAN (04/21/2024 12:00 AM [facility]) 04/21/2024 us Provider Scan IMG ECG ORDERABLES Final Result RESULTING AGENCY from Last 3 Months Insurance MEDICAID [employer] [facility] Advance Directives * Full Code (Latest Code Status on File) Date Activated Date Inactivated Comments 07/25/2023 8:35 PM 07/27/2023 4:14 PM CPR-Full Treat ment: FULL ARREST: Attempt Resuscitation/CPR wit intubation and mechanical ventilation. PRE-ARREST: Use entire range of life support measures to stabilize the patient. * Full Code Date Activated Date Inactivated Comments 07/13/2023 2:10 PM 07/17/2023 5:53 PM CPR-Full Thierry atment: FULL ARREST: Attempt Resuscitation/CPR wit intubation and mechanical ventilation. PRE-ARREST: Use entire range of life support measures to stabilize the patient. Care Teams Art Appraiser Relationship Specialty Start Date End Date Jailene Callaway MD [address] [place] [address] [address] PCP - General Family Medicine 04/21/24
--- OUTSIDE RECORDS SUMMARY | 2024-06-25 18:05 | XMS_ITS | Data Portability ---
Author Organization [facility] Lyndon YUAN Address [address] [address] Care Team Providers Care Human Resources Operations Coordinator Name Role Phone OTF YU Account Resolution Expert JAILENE GUAJARDO Primary Care Provider Unavailabl e Assessment No assessment recorded. Plan of Treatment Reminders Order Date Submit Date Provider Last Modified By Organization Details Last Modified Time Details Appointments ANY 30 2024 01:00P M JOSE JACOBSEN MD Not available Not available Not available Lab HbA1c (hemoglob in A1c), blood 2024 025 [facility] In-Office Order, Internal Use Only DO Not Attach Compendium DO Not Attach Compendium, Do Not Delete/merge, [id number] 03/27/2024 17:45:14 pap, IG + reflex HPV 2024 025 [facility], [address] [facility] [address] [facility] [address], [address], [place], [address], 04/01/2024 09:27:31 Referral None recorded. Procedures None recorded. Surgeries None recorded. Imaging XR, foot, 3 or more view 2024 025 [facility], [address] [place], [address], 05/09/2024 11:14:04 Medication Orders gabapenti n 300 mg capsule 2024 025 [id number], [address], [place], [id number], 04/10/2024 18:35:22 trazodone 100 mg tablet 2024 [id number], [address], [place], [id number], 04/10/2024 17:19:49 aripipraz ole 5 mg tablet 2024 [facility][id number], [address], [place], [id number], 03/29/2024 21:52:49 Ozempic 0.25 mg or 0.5 mg (2 mg/3 mL) subcutane ous pen injector 2024 [facility]odar[facility]60893, [address], [place], [id number], 04/10/2024 15:15:10 estradiol 0.01% (0.1 mg/gram) vaginal cream 2024 [facility] #90257, [address], [place], [id number], 03/29/2024 21:52:48 Patient TargetsNo targets recorded. Patient Instructions Encounter Date Encounter Id Patient Instructions Last Modified By Organization Details Last Modified Time 03/27/2024 [id number] bipolar disorder : care instructions octabi Not available 03/27/2024 17:37:37 learning about mood disorders augabi Not available 03/27/2024 17:37:37 I personally saw and examined the patient with the resident. I agree with the note and plan as documented. Tamara Suresh MD. [facility] [email or web address] Not available 03/27/2024 17:13:14 04/10/2024 [id number] learning about type 2 diabetes augabi Not available 04/10/2024 17:19:44 type 2 diabetes: care instructions augabi Not available 04/10/2024 17:19:44 I saw the patien t with the resident. I agree with the resident's assessment and plan as documented Martin Uribe MD [email or web address] Not available 04/10/2024 16:02:38 Reason for Referral None Reported. Results Created Date Observation Date Name Description Value Unit Range Abnormal Flag Note LastModifiedBy Organization Detail LastModifiedTime 12/13/19 24 12/13/2023 HbA1c (hemo globi n A1c), blood HbA1c 9.0% Not Available In-Office Order Internal Use Only DO Not Attach Compendium DO Not Attach Compendium, Do Not Delete/merge, [id number] 12/13/2023 15:12:47 03/27/19 25 03/27/2024 HbA1c (hemo globi n A1c), blood HbA1c 9.1 Not Available In-Office Order Internal Use Only DO Not Attach Compendium DO Not Attach Compendium, Do Not Delete/merge, [id number] 03/27/2024 17:37:35 03/28/19 25 03/28/2024 IGP,A PTIMA HPV,A GE GDLN age gdln acog testing 30-65 Not Available [facility] ([facility]) [address], [place], [address], 04/01/2024 09:27:31 03/28/19 25 03/31/2024 IGP, APTIM A HPV, RFX 16/18 ,45 HPV aptima Negati ve negati ve This nucle ic acid ampli ficat ion test detec ts fourt een high- risk HPV types (16,1 8,31, 33,35 ,39,4 5,51, 52,56 ,58,5 9,66, 68) witho ut diffe renti ation . Not Available [facility] ([facility]) [address], [place], [address], 04/01/2024 09:27:33 03/28/1904/01/2024 IGP, APTIM A HPV, RFX 16/18 ,45 diagnosis: Commen t NEGAT VIOLET FOR INTRA EPITH ELIAL LESIO N OR MALHEDY STEVENSON . Not Available [facility] ([facility]) [address], [place], [address], 04/01/2024 09:27:33 03/28/19 25 04/01/2024 IGP, APTIM A HPV, RFX 16/18 ,45 specimen adequacy: Odalis duran Satis facto ry for evalu ation . No endoc ervic al compo nent is ident ified . Not Available [facility] ([facility]) [address] [place], [address], 04/01/2024 09:27:33 03/28/19 25 04/01/2024 IGP, APTIM A HPV, RFX 16/18 ,45 clinician provided ICD10: Odalis duran Z00.0 0 Not Available [facility] ([facility]) [address], [place], [address], 04/01/2024 09:27:33 03/28/19 25 04/01/2024 IGP, APTIM A HPV, RFX 16/18 ,45 performed by: Odalis siu, Cytorenee duran (ASCP ) Not Available [facility] ([facility]) [address] [place], [address], 04/01/2024 09:27:33 03/28/19 25 04/01/2024 IGP, APTIM A HPV, RFX 16/18 ,45 . . Not Available [facility] ([facility]) [address] [place], [address], 04/01/2024 09:27:33 03/28/19 25 04/01/2024 IGP, APTIM A HPV, RFX 16/18 ,45 note: Odalis duran The Pap smear is a scree rajwinder test desig christian to aid in the detec tion of taj ligna nt and malig nant condi tions of the uteri ne cervi x. It is not a diagn ostic proce dure and shoul d not be used as the sole means of detec ting cervi jayson cance r. Both false -posi tive and false -nega tive repor ts do occur . Not Available [facility] ([facility]) [address], [place], [address], 04/01/2024 09:27:33 03/28/1904/01/2024 IGP, APTIM A HPV, RFX 16/18 ,45 test methodology: Commen t This liqui d based ThinP rep(R ) pap test was roslyn gonzales with the use of an image guide jennifer love Not Available [facility] ([facility]) [address], [place], [address], 04/01/2024 09:27:33 03/28/1904/01/2024 IGP, APTIM A HPV, RFX 16/18 ,45 HPV genotype reflex Commen t Crite reinaldo not met, HPV Genot ype not perfo rmed. Not Available [facility] ([facility]) [address], [place], [address], 04/01/2024 09:27:33 05/02/19 25 05/02/2024 Gluco se [Mass /volu me] in Blood glucose [mass/volume ] in blood 120 mg/dL low: 70mg/d Lhigh: 99mg/d L high GLUCO SE,BE DSIDE POCT 120 (H) 70 - 99 mg/dL 05/02 8:41 PM [employer]ELOPER [facility] Not Available Not Available 05/08/2024 13:25:44 05/02/19 25 05/02/2024 Gluco se [Mass /volu me] in Blood interpretati on and review of laboratory results Abnorm al Not Available Not Available 13:25:44 05/02/1905/02/2024 Basic metab olic 2000 panel - Serum or Plasm a sodium [moles/volum e] in serum or plasma 145 mmol/ L low: 136mmo l/Lhig h: 145mmo l/L SODIU M 145 136 - 145 mmol/ L 05/02 8:33 PM [employer]EL[employer] [facility] Not Available Not Available 05/08/2024 13:25:43 05/02/19 25 05/02/2024 Basic metab olic 2000 panel - Serum or Plasm a potassium [moles/volum e] in serum or plasma 3.2 mmol/ L low: 3.5mmo l/Lhig h: 5.1mmo l/L low POTAS SIUM 3.2 (L) 3.5 - 5.1 mmol/ L 05/02 8:33 PM [employer]EL[employer] [facility] Not Available Not Available 05/08/2024 13:25:43 05/02/19 25 05/02/2024 Basic metab olic 2000 panel - Serum or Plasm a chloride [moles/volum e] in serum or plasma 106 mmol/ L low: 98mmol /Lhigh : 107mmo l/L CHLOR ROQUE 106 98 - 107 mmol/ L 05/02 8:33 PM [employer]ELOPER [facility] Not Available Not Available 05/08/2024 13:25:43 05/02/19 25 05/02/2024 Basic metab olic 2000 panel - Serum or Plasm a carbon dioxide, total [moles/volum e] in serum or plasma 30 mmol/ L low: 22mmol /Lhigh : 30mmol /L CO2, VENOU S 30 22 - 30 mmol/ L 05/02 8:33 PM [employer]EL[employer] [facility] Not Available Not Available 05/08/2024 13:25:43 05/02/19 25 05/02/2024 Basic metab olic 1999 panel - Serum or Plasm a anion gap in serum or plasma 12.2 mmol/ L high: 18mmol /L ANION GAP 12.2 <18.0 mmol/ L 05/02 8:33 PM [employer]EL[employer] [facility] Not Available Not Available 05/08/2024 13:25:43 05/02/19 25 05/02/2024 Basic metab olic 2000 panel - Serum or Plasm a glucose [mass/volume ] in serum or plasma 143 mg/dL low: 70mg/d Lhigh: 99mg/d L high GLUCO SE 143 (H) 70 - 99 mg/dL 05/02 8:33 PM [employer]EL[employer] [facility] Not Available Not Available 05/08/2024 13:25:43 05/02/19 25 05/02/2024 Basic metab olic 2000 panel - Serum or Plasm a urea nitrogen [mass/volume ] in serum or plasma 22 mg/dL low: 10mg/d Lhigh: 20mg/d L high BUN 22 (H) 10 - 20 mg/dL 05/02 8:33 PM [employer]EL[employer] [facility] Not Available Not Available 05/08/2024 13:25:43 05/02/19 25 05/02/2024 Basic metab olic 2000 panel - Serum or Plasm a creatinine [mass/volume ] in serum or plasma 0.9 mg/dL low: 0.6mg/ dLhigh : 1mg/dL CREAT ININE , BLOOD 0.90 0.60 - 1.00 mg/dL 05/02 8:33 PM [employer] DEVELOPER [facility] Not Available Not Available 05/08/2024 13:25:43 05/02/19 25 05/02/2024 Basic metab olic 2000 panel - Serum or Plasm a urea nitrogen/cre atinine [mass ratio] in serum or plasma 24 text: 12 - 20 ratio high BUN/C REATI NINE RATIO 24 (H) 12 - 20 ratio 05/02 8:33 PM [employer] DEVEL[employer] [facility] Not Available Not Available 05/08/2024 13:25:43 05/02/19 25 05/02/2024 Basic metab olic 2000 panel - Serum or Plasm a calcium [mass/volume ] in serum or plasma 8.9 mg/dL low: 8.7mg/ dLhigh : 10.5mg /dL CALCI UM 8.9 8.7 - 10.5 mg/dL 05/02 8:33 PM [employer]EL[employer] [facility] Not Available Not Available 05/08/2024 13:25:43 05/02/19 25 05/02/2024 Basic metab olic 2000 panel - Serum or Plasm a glomerular filtration rate/1.73 sq M.predicted among non-blacks [volume rate/area] in serum, plasma or blood by creatinine-b ased formula (MDRD) low: 60 GFR, ESTIM ATED >60 >=60 05/02 8:33 PM [employer] [facility] Not Available Not Available 05/08/2024 13:25:43 05/02/19 25 05/02/2024 Basic metab olic 2000 panel - Serum or Plasm a glomerular filtration rate/1.73 sq M.predicted among blacks [volume rate/area] in serum, plasma or blood by creatinine-b ased formula (MDRD) low: 60 GFR, EST. AFRIC AN >60 >=60 05/02 8:33 PM [employer]EL[employer] [facility] Not Available Not Available 05/08/2024 13:25:43 05/02/19 25 05/02/2024 Basic metab olic 2000 panel - Serum or Plasm a glomerular filtration rate/1.73 sq M.predicted among non-blacks [volume rate/area] in serum, plasma or blood by creatinine-b ased formula (MDRD) low: 60 GFR, EST. NONAF RICAN >60 >=60 05/02 8:33 PM [employer]EL[employer] [facility] Not Available Not Available 05/08/2024 13:25:43 05/02/19 25 05/02/2024 Basic metab olic 2000 panel - Serum or Plasm a interpretati on and review of laboratory results Abnorm al Not Available Not Available 13:25:43 05/02/19 25 05/02/2024 Aceto ne [Pres ence] in Blood acetone [presence] in blood Negati ve text: negati ve ACETO NE Negat violet Negat violet 05/02 8:29 PM [employer]EL[employer] [facility] [employer] LAB Not Available Not Available 05/08/2024 13:25:43 05/02/19 25 05/02/2024 Aceto ne [Pres ence] in Blood interpretati on and review of laboratory results Normal Not Available Not Available 04/26 13:25:43 05/02/19 25 05/02/2024 Drugs of abuse panel - Urine by Scree n metho d amphetamine [presence] in urine by screen method NON DETECT ED text: non detect ed UR AMPHE TAMIN E NON DETEC PAMELA NON DETEC PAMELA 05/02 5:07 PM [employer] DEVELOPER [facility] Not Available Not Available 05/08/2024 13:25:43 05/02/19 25 05/02/2024 Drugs of abuse panel - Urine by Scree n metho d benzodiazepi julita [presence] in urine NON DETECT ED text: non detect ed UR BENZO DIAZE [place]ES NON DETEC PAMELA NON DETEC PAMELA 05/02 5:07 PM [employer] DEVELOPER [facility] Not Available Not Available 05/08/2024 13:25:43 05/02/19 25 05/02/2024 Drugs of abuse panel - Urine by Scree n metho d benzoylecgon ine [presence] in urine NON DETECT ED text: non detect ed UR COCAI NE METAB OLITE NON DETEC PAMELA NON DETEC PAMELA 05/02 5:07 PM [employer] DEVELOPER [facility] Not Available Not Available 05/08/2024 13:25:43 05/02/19 25 05/02/2024 Drugs of abuse panel - Urine by Scree n metho d opiates [presence] in urine DETECT ED text: non detect ed abnormal UR OPIAT ES DETEC PAMELA (A) NON DETEC PAMELA 05/02 5:07 PM [employer] DEVELOPER [facility] Not Available Not Available 05/08/2024 13:25:43 05/02/19 25 05/02/2024 Drugs of abuse panel - Urine by Scree n metho d phencyclidin e [presence] in urine NON DETECT ED text: non detect ed UR PHENC YCLID INE NON DETEC PAMELA NON DETEC PAMELA 05/02 5:07 PM [employer] DEVELOPER [facility] Not Available Not Available 05/08/2024 13:25:43 05/02/19 25 05/02/2024 Drugs of abuse panel - Urine by Scree n metho d cannabinoids [presence] in urine DETECT ED text: non detect ed abnormal UR CANNA BINOI D DETEC PAMELA (A) NON DETEC PAMELA 05/02 5:07 PM [employer] DEVELOPER [facility] Not Available Not Available 05/08/2024 13:25:43 05/02/19 25 05/02/2024 Drugs of abuse panel - Urine by Roslyn rodriguez barbiturates [presence] in urine NON DETECT ED text: non detect ed UR SILAS TURAT E NON DETEC PAMELA NON DETEC PAMELA 05/02 5:07 PM [employer] DEVELOPER [facility] Not Available Not Available 05/08/2024 13:25:43 05/02/19 25 05/02/2024 Drugs of abuse panel - Urine by Roslyn rodriguez ur fentanyl NON DETECT ED text: non detect ed UR FENTA NYL NON DETEC PAMELA NON DETEC PAMELA 05/02 5:07 PM [employer] DEVELOPER [facility] Not Available Not Available 05/08/2024 13:25:43 05/02/19 25 05/02/2024 Drugs of abuse panel - Urine by Roslyn rodriguez interpretati on and review of laboratory results Abnorm al Not Available Not Available 13:25:43 05/02/19 25 05/02/2024 Monicaa l Diffe renti al band form neutrophils/ 100 leukocytes in blood by manual count 6 % BANDS % 6.0 % 05/02 1:25 PM [employer] DEVELOPER [facility] Not Available Not Available 05/08/2024 13:25:44 05/02/19 25 05/02/2024 Manua l Diffe renti al neutrophils/ 100 leukocytes in blood by manual count 83 % low: 47%hig h: 73% high NEUTR OPHIL S % 83.0 (H) 47.0 - 73.0 % 05/02 1:25 PM [employer] DEVELOPER [facility] Not Available Not Available 05/08/2024 13:25:44 05/02/19 25 05/02/2024 Manua l Diffe renti al lymphocytes/ 100 leukocytes in blood by manual count 7 % low: 18%hig h: 42% low LYMPH OCYTE S % 7.0 (L) 18.0 - 42.0 % 05/02 1:25 PM [employer] DEVELOPER [facility] Not Available Not Available 05/08/2024 13:25:44 05/02/19 25 05/02/2024 Monicaa velia Riggse renti al monocytes/10 0 leukocytes in blood by manual count 3 % low: 4%high : 12% low MONOC YTES % 3.0 (L) 4.0 - 12.0 % 05/02 1:25 PM [employer] DEVEL[employer] [facility] Not Available Not Available 05/08/2024 13:25:44 05/02/19 25 05/02/2024 Terry Riggse jassti al myelocytes/1 00 leukocytes in blood by manual count 1 % high: 0% high MYELO CYTES % 1.0 (H) <=0.0 % 05/02 1:25 PM [employer] DEVELOPER [facility] Not Available Not Available 05/08/2024 13:25:44 05/02/19 25 05/02/2024 Monicaa velia Riggse jassti al neutrophils [#/volume] in blood by manual count 19.75 text: 1.60 - 7.70 10(3)/ mcL high NEUTR OPHIL S ABSOL SOBOBA 19.75 (H) 1.60 - 7.70 10(3) /mcL 05/02 1:25 PM [employer] DEVEL[employer] [facility] Not Available Not Available 05/08/2024 13:25:44 05/02/19 25 05/02/2024 Monicaa velia Riggse jassti al lymphocytes [#/volume] in blood by manual count 1.55 text: 1.30 - 3.20 10(3)/ mcL LYMPH OCYTE S ABSOL SOBOBA 1.55 1.30 - 3.20 10(3) /mcL 05/02 1:25 PM [employer] DEVELOPER [facility] Not Available Not Available 05/08/2024 13:25:44 05/02/19 25 05/02/2024 Manua l Diffe jassti al monocytes [#/volume] in blood by manual count 0.67 text: 0.20 - 1.00 10(3)/ mcL MONOC YTES ABSOL SOBOBA 0.67 0.20 - 1.00 10(3) /mcL 05/02 1:25 PM [employer] DEVELOPER [facility] Not Available Not Available 05/08/2024 13:25:44 05/02/19 25 05/02/2024 Manua l Diffe renti al erythrocytes [morphology] in blood by automated count Yes RBC MORPH OLOGY CONSI STENT WITH INDIC ES Yes 05/02 1:25 PM [employer] DEVELOPER [facility] Not Available Not Available 05/08/2024 13:25:44 05/02/19 25 05/02/2024 Manua l Diffe jassti al platelets large [presence] in blood by light microscopy 1+ LARGE PLATE LETS 1+ 05/02 1:25 PM [employer] DEVELOPER [facility] Not Available Not Available 05/08/2024 13:25:44 05/02/19 25 05/02/2024 Manua l Diffe jassti al variant lymphocytes/ 100 leukocytes in blood by manual count 3 REACT VIOLET LYMPH OCYTE S 3 05/02 1:25 PM [employer] DEVELOPER [facility] Not Available Not Available 05/08/2024 13:25:44 05/02/19 25 05/02/2024 Manua l Diffe renti al leukocyte morphology finding [identifier] in blood Normal WBC MORPH STATU S Yina l 05/02 1:25 PM [employer] DEVELOPER [facility] Not Available Not Available 05/08/2024 13:25:44 05/02/19 25 05/02/2024 Manua l Diffe renti al Unknown Analyte Anisoc ytosis Aniso cytos is Not Available Not Available 05/08/2024 13:25:44 05/02/19 25 05/02/2024 Manua l Diffe renti al interpretati on and review of laboratory results Abnorm al Not Available Not Available 13:25:44 05/02/19 25 05/02/2024 CBC W Auto Diffe renti al panel - Blood leukocytes [#/volume] in blood by automated count 22.19 text: 4.00 - 12.00 10(3)/ mcL high WBC 22.19 (H) 4.00 - 12.00 10(3) /mcL 05/02 1:25 PM [employer] DEVELOPER [facility] Not Available Not Available 05/08/2024 13:25:44 05/02/19 25 05/02/2024 CBC W Auto Diffe renti al panel - Blood erythrocytes [#/volume] in blood by automated count 5.57 text: 3.80 - 5.30 10(6)/ mcL high RBC 5.57 (H) 3.80 - 5.30 10(6) /mcL 05/02 1:25 PM [employer] DEVELOPER [facility] Not Available Not Available 05/08/2024 13:25:44 05/02/1905/02/2024 CBC W Auto Diffe renti al panel - Blood hemoglobin [mass/volume ] in blood 17 g/dL low: 12g/dL high: 15.8g/ dL high HEMOG LOBIN (HGB) 17.0 (H) 12.0 - 15.8 g/dL 05/02 1:25 PM [employer] DEVELOPER [facility] Not Available Not Available 05/08/2024 13:25:44 05/02/19 25 05/02/2024 CBC W Auto Diffe renti al panel - Blood hematocrit [volume fraction] of blood by automated count 49 % low: 36%hig h: 47% high HEMAT OCRIT (HCT) 49.0 (H) 36.0 - 47.0 % 05/02 1:25 PM [employer] DEVELOPER [facility] Not Available Not Available 05/08/2024 13:25:44 05/02/19 25 05/02/2024 CBC W Auto Diffe renti al panel - Blood MCV [entitic volume] by automated count 88 fL low: 82fLhi gh: 96fL MCV 88.0 82.0 - 96.0 fL 05/02 1:25 PM [employer] DEVELOPER [facility] Not Available Not Available 05/08/2024 13:25:44 05/02/19 25 05/02/2024 CBC W Auto Diffe renti al panel - Blood MCH [entitic mass] by automated count 30.5 pg low: 26pghi gh: 34pg MCH 30.5 26.0 - 34.0 pg 05/02 1:25 PM [employer] DEVELOPER [facility] Not Available Not Available 05/08/2024 13:25:44 05/02/19 25 05/02/2024 CBC W Auto Diffe renti al panel - Blood MCHC [mass/volume ] by automated count 34.7 g/dL low: 31g/dL high: 36g/dL MCHC 34.7 31.0 - 36.0 g/dL 05/02 1:25 PM [facility] Not Available Not Available 05/08/2024 13:25:44 05/02/19 25 05/02/2024 CBC W Auto Diffe renti al panel - Blood platelets [#/volume] in blood 224 text: 140 - 440 10(3)/ mcL PLATE LET COUNT 224 140 - 440 10(3) /mcL 05/02 1:25 PM [facility] [employer] Not Available Not Available 05/08/2024 13:25:44 05/02/19 25 05/02/2024 CBC W Auto Diffe renti al panel - Blood erythrocyte distribution width [ratio] by automated count 13.2 % low: 11.8%h igh: 15.5% RDW 13.2 11.8 - 15.5 % 05/02 1:25 PM [employer] DEVELOPER [facility] Not Available Not Available 05/08/2024 13:25:44 05/02/19 25 05/02/2024 CBC W Auto Diffe renti al panel - Blood platelet mean volume [entitic volume] in blood by automated count 12.8 fL low: 9.7fLh igh: 12.4fL high MPV 12.8 (H) 9.7 - 12.4 fL 02/07 /2025 1:25 PM [employer] DEVELOPER [facility] Not Available Not Available 05/08/2024 13:25:44 05/02/19 25 05/02/2024 CBC W Auto Diffe renti al panel - Blood nucleated erythrocytes /100 leukocytes [ratio] in blood 0 NRBC PER 100 WBC 0 05/02 1:25 PM [employer] DEVELOPER [facility] Not Available Not Available 05/08/2024 13:25:44 05/02/19 25 05/02/2024 CBC W Auto Diffe renti al panel - Blood etl bi developer review of results Yes RESUL TS ARE CONSI STENT WITH PERIP HERAL SMEAR REVIE W Yes 05/02 1:25 PM [employer] DEVELOPER [facility] Not Available Not Available 05/08/2024 13:25:44 05/02/19 25 05/02/2024 CBC W Auto Diffe renti al panel - Blood interpretati on and review of laboratory results Abnorm al Not Available Not Available 13:25:44 05/02/19 25 05/02/2024 Phosp hate [Mass /volu me] in Serum or Plasm a phosphate [mass/volume ] in serum or plasma 2.8 mg/dL low: 2.5mg/ dLhigh : 4.5mg/ dL PHOSP HORUS 2.8 2.5 - 4.5 mg/dL 05/02 4:40 PM [employer] DEVELOPER [facility] Not Available Not Available 05/08/2024 13:25:44 05/02/19 25 05/02/2024 Phosp hate [Mass /volu me] in Serum or Plasm a interpretati on and review of laboratory results Normal Not Available Not Available 04/26 13:25:44 05/02/19 25 05/02/2024 Magne sium [Mass /volu me] in Serum or Plasm a magnesium [mass/volume ] in serum or plasma 1.5 mg/dL low: 1.6mg/ dLhigh : 2.6mg/ dL low MAGNE SIUM 1.5 (L) 1.6 - 2.6 mg/dL 05/02 4:40 PM [facility] Not Available Not Available 05/08/2024 13:25:44 05/02/19 25 05/02/2024 Magne sium [Mass /volu me] in Serum or Plasm a interpretati on and review of laboratory results Abnorm al Not Available Not Available 13:25:44 05/02/19 25 05/02/2024 Lipas e [Enzy matic activ ity/v olume ] in Serum or Plasm a lipase [enzymatic activity/vol ume] in serum or plasma 18 U/L low: 8U/Lhi gh: 78U/L LIPAS E 18 8 - 78 U/L 05/02 1:02 PM [facility] Not Available Not Available 05/08/2024 13:25:44 05/02/19 25 05/02/2024 Lipas e [Enzy matic activ ity/v olume ] in Serum or Plasm a interpretati on and review of laboratory results Normal Not Available Not Available 04/26 13:25:44 05/02/19 25 05/02/2024 Compr ehens violet metab olic 2000 panel - Serum or Plasm a sodium [moles/volum e] in serum or plasma 144 mmol/ L low: 136mmo l/Lhig h: 145mmo l/L SODIU M 144 136 - 145 mmol/ L 05/02 1:02 [facility] Not Available Not Available 05/08/2024 13:25:44 05/02/19 25 05/02/2024 Compr ehens violet metab olic 2000 panel - Serum or Plasm a potassium [moles/volum e] in serum or plasma 3.3 mmol/ L low: 3.5mmo l/Lhig h: 5.1mmo l/L low POTAS SIUM 3.3 (L) 3.5 - 5.1 mmol/ L 05/02 1:02 PM [facility] Not Available Not Available 05/08/2024 13:25:44 05/02/19 25 05/02/2024 Compr ehens violet metab olic 1999 panel - Serum or Plasm a chloride [moles/volum e] in serum or plasma 100 mmol/ L low: 98mmol /Lhigh : 107mmo l/L CHLOR ROQUE 100 98 - 107 mmol/ L 05/02 1:02 PM [employer] [facility] Not Available Not Available 05/08/2024 13:25:44 05/02/19 25 05/02/2024 Compr ehens violet metab olic 1999 panel - Serum or Plasm a carbon dioxide, total [moles/volum e] in serum or plasma 22 mmol/ L low: 22mmol /Lhigh : 30mmol /L CO2, VENOU S 22 22 - 30 mmol/ L 05/02 1:02 PM [facility] OSMETHODIST JENNIE EDMUNDSON [employer] [facility] LAB Not Available Not Available 05/08/2024 13:25:44 05/02/19 25 05/02/2024 Compr ehens violet metab olic 2000 panel - Serum or Plasm a anion gap in serum or plasma 25.3 mmol/ L high: 18mmol /L high ANION GAP 25.3 (H) <18.0 mmol/ L 05/02 1:02 PM [facility] OSMETHODIST JENNIE EDMUNDSON [employer] [facility] Not Available Not Available 05/08/2024 13:25:44 05/02/19 25 05/02/2024 Compr ehens violet metab olic 1999 panel - Serum or Plasm a glucose [mass/volume ] in serum or plasma 342 mg/dL low: 70mg/d Lhigh: 99mg/d L high GLUCO SE 342 (H) 70 - 99 mg/dL 05/02 1:02 PM [employer] [facility]SMETHOD[facility] Not Available Not Available 05/08/2024 13:25:44 05/02/19 25 05/02/2024 Compr ehens violet metab olic 2000 panel - Serum or Plasm a urea nitrogen [mass/volume ] in serum or plasma 22 mg/dL low: 10mg/d Lhigh: 20mg/d L high BUN 22 (H) 10 - 20 mg/dL 05/02 1:02 PM [facility] Not Available Not Available 05/08/2024 13:25:44 05/02/19 25 05/02/2024 Compr ehens violet metab olic 2000 panel - Serum or Plasm a creatinine [mass/volume ] in serum or plasma 0.97 mg/dL low: 0.6mg/ dLhigh : 1mg/dL CREAT ININE , BLOOD 0.97 0.60 - 1.00 mg/dL 05/02 1:02 PM [facility] Not Available Not Available 05/08/2024 13:25:44 05/02/19 25 05/02/2024 Compr ehens violet metab olic 2000 panel - Serum or Plasm a urea nitrogen/cre atinine [mass ratio] in serum or plasma 23 text: 12 - 20 ratio high BUN/C REATI NINE RATIO 23 (H) 12 - 20 ratio 05/02 1:02 PM [facility] [employer] [facility] Not Available Not Available 05/08/2024 13:25:44 05/02/19 25 05/02/2024 Compr ehens violet metab olic 2000 panel - Serum or Plasm a protein [mass/volume ] in serum or plasma 8.4 g/dL low: 6g/dLh igh: 8g/dL high TOTAL PROTE IN 8.4 (H) 6.0 - 8.0 g/dL 05/02 1:02 PM [facility] [employer] [facility] Not Available Not Available 05/08/2024 13:25:44 05/02/19 25 05/02/2024 Compr ehens violet metab olic 2000 panel - Serum or Plasm a albumin [mass/volume ] in serum or plasma 4.4 g/dL low: 3.5g/d Lhigh: 5g/dL ALBUM IN 4.4 3.5 - 5.0 g/dL 05/02 1:02 PM [facility] Not Available Not Available 05/08/2024 13:25:44 05/02/19 25 05/02/2024 Compr ehens violet metab olic 2000 panel - Serum or Plasm a albumin/glob ulin [mass ratio] in serum or plasma 1.1 low: 1high: 2.2 A/G RATIO 1.1 1.0 - 2.2 05/02 1:02 PM [employer] [facility] [employer] [facility] [facility] LAB Not Available Not Available 05/08/2024 13:25:44 05/02/19 25 05/02/2024 Compr ens violet metab [facility] 1999 panel - Serum or Plasm a calcium [mass/volume ] in serum or plasma 10 mg/dL low: 8.7mg/ dLhigh : 10.5mg /dL CALCI UM 10.0 8.7 - 10.5 mg/dL 05/02 1:02 PM [employer] [facility] Not Available Not Available 05/08/2024 13:25:44 05/02/19 25 05/02/2024 Compr ens violet metab [place] [id number] panel - Serum or Plasm a bilirubin.to geovani [mass/volume ] in serum or plasma 0.7 mg/dL low: 0.2mg/ dLhigh : 1.2mg/ dL T BILI 0.7 0.2 - 1.2 mg/dL 05/02 1:02 PM [employer] [facility] [employer] [facility] LAB Not Available Not Available 05/08/2024 13:25:44 05/02/19 25 05/02/2024 Compr ens violet metab olic 1999 panel - Serum or Plasm a aspartate aminotransfe rase [enzymatic activity/vol ume] in serum or plasma 20 U/L low: 6U/Lhi gh: 42U/L SGOT (AST) 20 6 - 42 U/L 05/02 1:02 PM [facility] [employer] [facility] LAB Not Available Not Available 05/08/2024 13:25:44 05/02/19 25 05/02/2024 Compr ehens violet metab olic 2000 panel - Serum or Plasm a alanine aminotransfe rase [enzymatic activity/vol ume] in serum or plasma 8 U/L low: 6U/Lhi gh: 55U/L SGPT (ALT) 8 6 - 55 U/L 05/02 1:02 PM [employer] [facility] [facility] Not Available Not Available 05/08/2024 13:25:44 05/02/1905/02/2024 Compr [facility] violet metab olic 2000 panel - Serum or Plasm a alkaline phosphatase [enzymatic activity/vol ume] in serum or plasma 120 U/L low: 40U/Lh igh: 150U/L ALKAL INE PHOSP HATAS E 120 40 - 150 U/L 05/02 1:02 PM [employer] [facility] Not Available Not Available 05/08/2024 13:25:44 05/02/19 25 05/02/2024 Compr [facility] violet metab olic 2000 panel - Serum or Plasm a glomerular filtration rate/1.73 sq M.predicted among non-blacks [volume rate/area] in serum, plasma or blood by creatinine-b ased formula (MDRD) low: 60 GFR, ESTIM ATED >60 >=60 05/02 1:02 PM [employer] [facility] Not Available Not Available 05/08/2024 13:25:44 05/02/19 25 05/02/2024 Compr ehens violet metab olic 2000 panel - Serum or Plasm a glomerular filtration rate/1.73 sq M.predicted among blacks [volume rate/area] in serum, plasma or blood by creatinine-b ased formula (MDRD) low: 60 GFR, EST. AFRIC AN >60 >=60 05/02 1:02 PM [employer] [facility] Not Available Not Available 05/08/2024 13:25:44 05/02/19 25 05/02/2024 Compr ehens violet metab olic 2000 panel - Serum or Plasm a glomerular filtration rate/1.73 sq M.predicted among non-blacks [volume rate/area] in serum, plasma or blood by creatinine-b ased formula (MDRD) 59 low: 60 low GFR, EST. NONAF RICAN 59 (L) >=60 05/02 1:02 PM [employer] [facility] Not Available Not Available 05/08/2024 13:25:44 05/02/19 25 05/02/2024 Compr ehens violet metab olic 2000 panel - Serum or Plasm a interpretati on and review of laboratory results Abnorm al Not Available Not Available 13:25:44 05/02/19 25 05/02/2024 Influ yahir virus A and B and SARS- CoV-2 (COVI D-19) and Respi rator y syncy tial virus RNA panel - Respi rator y syste m speci men by JOSE ROBERTO with probe detec tion influenza virus A RNA [presence] in upper respiratory specimen by JOSE ROBERTO with probe detection Negati ve text: negati ve, error FLU A Negat violet Negat violet, Error 05/02 11:43 AM [employer] [facility] [employer] [facility] Not Available Not Available 05/08/2024 13:25:44 05/02/19 25 05/02/2024 Influ yahir virus A and B and SARS- CoV-2 (COVI D-19) and Respi rator y syncy tial virus RNA panel - Respi rator y syste m speci men by JOSE ROBERTO with probe detec tion influenza virus B RNA [presence] in upper respiratory specimen by JOSE ROBERTO with probe detection Negati ve text: negati ve FLU B Negat violet Negat violet 05/02 11:43 AM [employer] [facility] [employer] [facility] Not Available Not Available 05/08/2024 13:25:44 05/02/19 25 05/02/2024 Influ yahir virus A and B and SARS- CoV-2 (COVI D-19) and Respi rator y syncy tial virus RNA panel - Respi rator y syste m speci men by JOSE ROBERTO with probe detec tion respiratory syncytial virus RNA [presence] in respiratory system specimen by JOSE ROBERTO with probe detection Negati ve text: negati ve RESP SYNC VIRUS Negat violet Negat violet 05/02 11:43 AM [employer] DEVELOPER [facility] [employer] Moz[employer] R LAB Not Available Not Available 05/08/2024 13:25:44 05/02/19 25 05/02/2024 Influ yahir virus A and B and SARS- CoV-2 (COVI D-19) and Respi rator y syncy tial virus RNA panel - Respi rator y syste m speci men by JOSE ROBERTO with probe detec tion sars-cov-2 (covid-19) N gene [presence] in specimen by JOSE ROBERTO with probe detection NOT DETECT ED text: (refer ence range for this test IS not detect ed) SARSC OV2 NOT DETEC PAMLEA (Refe rence Range for this test is Not Detec pamela) 05/02 11:43 AM [employer]EL[employer] [facility] [employer] [facility] [facility] LAB Not Available Not Available 05/08/2024 13:25:44 05/02/19 25 05/02/2024 Influ yahir virus A and B and SARS- CoV-2 (COVI D-19) and Respi rator y syncy tial virus RNA panel - Respi rator y syste m speci men by JOSE ROBERTO with probe detec tion interpretati on and review of laboratory results Normal Not Available Not Available 04/26 13:25:44 05/09/19 25 05/09/2024 Drugs of abuse panel - Urine by Scree n metho d amphetamine [presence] in urine by screen method NON DETECT ED text: non detect ed UR AMPHE TAMIN E NON DETEC PAMELA NON DETEC PAMELA 05/09 11:01 AM [employer]ELOPER [facility] [employer] Moz[employer] R LAB Not Available Not Available 06/05/2024 12:36:40 05/09/19 25 05/09/2024 Drugs of abuse panel - Urine by Scree n metho d benzodiazepi julita [presence] in urine NON DETECT ED text: non detect ed UR BENZO DIAZE PINES NON DETEC PAMELA NON DETEC PAMELA 05/09 11:01 AM [employer]EL[employer] [facility] [employer] [facility] LAB Not Available Not Available 06/05/2024 12:36:40 05/09/19 25 05/09/2024 Drugs of abuse panel - Urine by Scree n metho d benzoylecgon ine [presence] in urine NON DETECT ED text: non detect ed UR COCAI NE METAB OLITE NON DETEC PAMELA NON DETEC PAMELA 05/09 11:01 AM [employer]EL[employer] [facility] [employer] [facility] Not Available Not Available 06/05/2024 12:36:40 05/09/19 25 05/09/2024 Drugs of abuse panel - Urine by Scree n metho d opiates [presence] in urine NON DETECT ED text: non detect ed UR OPIAT ES NON DETEC PAMELA NON DETEC PAMELA 05/09 11:01 AM [employer] DEVELOPER [facility] Not Available Not Available 06/05/2024 12:36:40 05/09/19 25 05/09/2024 Drugs of abuse panel - Urine by Scree n metho d phencyclidin e [presence] in urine NON DETECT ED text: non detect ed UR PHENC YCLID INE NON DETEC PAMELA NON DETEC PAMELA 05/09 11:01 AM [employer]EL[employer] [facility] Not Available Not Available 06/05/2024 12:36:40 05/09/19 25 05/09/2024 Drugs of abuse panel - Urine by Scree n metho d cannabinoids [presence] in urine DETECT ED text: non detect ed abnormal UR CANNA BINOI D DETEC PAMELA (A) NON DETEC PAMELA 05/09 11:01 AM [employer]EL[employer] [facility] Not Available Not Available 06/05/2024 12:36:40 05/09/19 25 05/09/2024 Drugs of abuse panel - Urine by Scree n metho d barbiturates [presence] in urine NON DETECT ED text: non detect ed UR SILAS TURAT E NON DETEC PAMELA NON DETEC PAMELA 05/09 11:01 AM [employer] DEVEL[employer] [facility] Not Available Not Available 06/05/2024 12:36:40 05/09/19 25 05/09/2024 Drugs of abuse panel - Urine by Scree n metho d ur fentanyl NON DETECT ED text: non detect ed UR FENTA NYL NON DETEC PAMELA NON DETEC PAMELA 05/09 11:01 AM [employer] DEVELOPER [facility] Not Available Not Available 06/05/2024 12:36:40 05/09/19 25 05/09/2024 Drugs of abuse panel - Urine by Scree n metho d interpretati on and review of laboratory results Abnorm al Not Available Not Available 12:36:40 05/09/1905/09/2024 CBC W Auto Diffe renti al panel - Blood leukocytes [#/volume] in blood by automated count 13.13 text: 4.00 - 12.00 10(3)/ mcL high WBC 13.13 (H) 4.00 - 12.00 10(3) /mcL 05/09 9:13 AM [employer] OSMETHODIST JENNIE ED[facility]UNDSON [facility] Not Available Not Available 06/05/2024 12:36:41 05/09/19 25 05/09/2024 CBC W Auto Diffe renti al panel - Blood erythrocytes [#/volume] in blood by automated count 5.56 text: 3.80 - 5.30 10(6)/ mcL high RBC 5.56 (H) 3.80 - 5.30 10(6) /mcL 05/09 9:13 AM [employer]EL[employer] [facility] Not Available Not Available 06/05/2024 12:36:41 05/09/19 25 05/09/2024 CBC W Auto Diffe renti al panel - Blood hemoglobin [mass/volume ] in blood 16.8 g/dL low: 12g/dL high: 15.8g/ dL high HEMOG LOBIN (HGB) 16.8 (H) 12.0 - 15.8 g/dL 05/09 9:13 AM [facility] Not Available Not Available 06/05/2024 12:36:41 05/09/19 25 05/09/2024 CBC W Auto Diffe renti al panel - Blood hematocrit [volume fraction] of blood by automated count 49 % low: 36%hig h: 47% high HEMAT OCRIT (HCT) 49.0 (H) 36.0 - 47.0 % 05/09 9:13 AM [employer] [facility] Not Available Not Available 06/05/2024 12:36:41 05/09/19 25 05/09/2024 CBC W Auto Diffe renti al panel - Blood MCV [entitic volume] by automated count 88.1 fL low: 82fLhi gh: 96fL MCV 88.1 82.0 - 96.0 fL 05/09 9:13 AM [facility] [employer] LAB Not Available Not Available 06/05/2024 12:36:41 05/09/19 25 05/09/2024 CBC W Auto Diffe renti al panel - Blood MCH [entitic mass] by automated count 30.2 pg low: 26pghi gh: 34pg MCH 30.2 26.0 - 34.0 pg 05/09 9:13 AM [facility] [employer] [facility] Not Available Not Available 06/05/2024 12:36:41 05/09/1905/09/2024 CBC W Auto Diffe renti al panel - Blood MCHC [mass/volume ] by automated count 34.3 g/dL low: 31g/dL high: 36g/dL MCHC 34.3 31.0 - 36.0 g/dL 05/09 9:13 AM [facility] [employer] [facility] Not Available Not Available 06/05/2024 12:36:41 05/09/1905/09/2024 CBC W Auto Diffe renti al panel - Blood platelets [#/volume] in blood 227 text: 140 - 440 10(3)/ mcL PLATE LET COUNT 227 140 - 440 10(3) /mcL 05/09 9:13 AM [facility] [employer] [facility] Not Available Not Available 06/05/2024 12:36:41 05/09/1905/09/2024 CBC W Auto Diffe renti al panel - Blood erythrocyte distribution width [ratio] by automated count 12.5 % low: 11.8%h igh: 15.5% RDW 12.5 11.8 - 15.5 % 05/09 9:13 AM [facility] [employer] [facility] Not Available Not Available 06/05/2024 12:36:41 05/09/19 25 05/09/2024 CBC W Auto Diffe renti al panel - Blood platelet mean volume [entitic volume] in blood by automated count 13.1 fL low: 9.7fLh igh: 12.4fL high MPV 13.1 (H) 9.7 - 12.4 fL 05/09 9:13 AM [employer] [facility] Not Available Not Available 06/05/2024 12:36:41 05/09/19 25 05/09/2024 CBC W Auto Diffe renti al panel - Blood neutrophils/ 100 leukocytes in blood by automated count 72.3 % low: 47%hig h: 73% NEUTR OPHIL S 72.3 47.0 - 73.0 % 05/09 9:13 AM [employer] [facility] Not Available Not Available 06/05/2024 12:36:41 05/09/19 25 05/09/2024 CBC W Auto Diffe renti al panel - Blood lymphocytes/ 100 leukocytes in blood by automated count 20.4 % low: 18%hig h: 42% LYMPH OCYTE S 20.4 18.0 - 42.0 % 05/09 9:13 AM [facility] Not Available Not Available 06/05/2024 12:36:41 05/09/19 25 05/09/2024 CBC W Auto Diffe renti al panel - Blood monocytes/10 0 leukocytes in blood by automated count 5 % low: 4%high : 12% MONOC YTES 5.0 4.0 - 12.0 % 05/09 9:13 AM [facility] Not Available Not Available 06/05/2024 12:36:41 05/09/19 25 05/09/2024 CBC W Auto Diffe renti al panel - Blood eosinophils/ 100 leukocytes in blood by automated count 1.8 % low: 0%high : 5% EOSIN OPHIL S 1.8 0.0 - 5.0 % 05/09 9:13 AM [facility] Not Available Not Available 06/05/2024 12:36:41 05/09/19 25 05/09/2024 CBC W Auto Diffe renti al panel - Blood basophils/10 0 leukocytes in blood by automated count 0.5 % low: 0%high : 1% BASOP HILS 0.5 0.0 - 1.0 % 05/09 9:13 AM [employer] OSMETHODIST JENN[facility] ED[facility]UNDSON [facility] Not Available Not Available 06/05/2024 12:36:41 05/09/19 25 05/09/2024 CBC W Auto Diffe renti al panel - Blood neutrophils [#/volume] in blood by automated count 9.5 text: 1.60 - 7.70 10(3)/ mcL high ABSOL SOBOBA NEUTR OPHIL S 9.50 (H) 1.60 - 7.70 10(3) /mcL 05/09 9:13 AM [employer] OSMETHODIST [facility] ED[facility]UN[facility]ON [facility] Not Available Not Available 06/05/2024 12:36:41 05/09/19 25 05/09/2024 CBC W Auto Diffe renti al panel - Blood lymphocytes [#/volume] in blood by automated count 2.68 text: 1.30 - 3.20 10(3)/ mcL ABSOL SOBOBA LYMPH OCYTE S 2.68 1.30 - 3.20 10(3) /mcL 05/09 9:13 AM [employer] OSMETHODIST [facility] Not Available Not Available 06/05/2024 12:36:41 05/09/1905/09/2024 CBC W Auto Diffe renti al panel - Blood monocytes [#/volume] in blood by automated count 0.65 text: 0.20 - 1.00 10(3)/ mcL ABSOL SOBOBA MONOC YTES 0.65 0.20 - 1.00 10(3) /mcL 05/09 9:13 AM [employer] OSMETHODIST [facility] ED[facility]UN[facility]ON [facility] Not Available Not Available 06/05/2024 12:36:41 05/09/19 25 05/09/2024 CBC W Auto Diffe renti al panel - Blood eosinophils [#/volume] in blood by automated count 0.24 text: 0.00 - 0.40 10(3)/ mcL ABSOL SOBOBA EOSIN OPHIL 0.24 0.00 - 0.40 10(3) /mcL 05/09 9:13 AM [employer] OSMETHODIST JENN[facility] ED[facility]UNDSON [facility] Not Available Not Available 06/05/2024 12:36:41 05/09/19 25 05/09/2024 CBC W Auto Diffe renti al panel - Blood basophils [#/volume] in blood by automated count 0.06 text: 0.00 - 0.10 10(3)/ mcL ABSOL SOBOBA BASOP HILS 0.06 0.00 - 0.10 10(3) /mcL 05/09 9:13 AM [employer] DEVELOPER [facility] Not Available Not Available 06/05/2024 12:36:41 05/09/19 25 05/09/2024 CBC W Auto Diffe renti al panel - Blood nucleated erythrocytes /100 leukocytes [ratio] in blood 0 NRBC PER 100 WBC 0 05/09 9:13 AM [employer]EL[employer] [facility] Not Available Not Available 06/05/2024 12:36:41 05/09/19 25 05/09/2024 CBC W Auto Diffe renti al panel - Blood etl bi developer review of results Yes RESUL TS ARE CONSI STENT WITH PERIP HERAL SMEAR REVIE W Yes 05/09 9:13 AM [employer]EL[employer] [facility] [place] [employer] LAB Not Available Not Available 06/05/2024 12:36:41 05/09/19 25 05/09/2024 CBC W Auto Diffe renti al panel - Blood erythrocytes [morphology] in blood by automated count Yes RBC MORPH OLOGY CONSI STENT WITH INDIC ES Yes 05/09 9:13 AM [employer] DEVEL[employer] [facility] [employer] [facility] LAB Not Available Not Available 06/05/2024 12:36:41 05/09/19 25 05/09/2024 CBC W Auto Diffe renti al panel - Blood platelets large [presence] in blood by light microscopy 1+ LARGE PLATE LETS 1+ 05/09 9:13 AM [employer]EL[employer] [facility] Not Available Not Available 06/05/2024 12:36:41 05/09/19 25 05/09/2024 CBC W Auto Diffe renti al panel - Blood interpretati on and review of laboratory results Abnorm al Not Available Not Available 12:36:41 05/09/19 25 05/09/2024 PT panel - Plate let poor plasm a by Coagu latio n assay prothrombin time (PT) 11.3 text: 11.6 - 14.8 sec low PROTI ME-PA TIENT 11.3 (L) 11.6 - 14.8 sec 05/09 9:05 AM [employer]EL[employer] OSMETHODIST [facility] Not Available Not Available 06/05/2024 12:36:41 05/09/19 25 05/09/2024 PT panel - Plate let poor plasm a by Coagu latio n assay INR in platelet poor plasma by coagulation assay 0.8 low: 0.9hig h: 1.2 low INR 0.8 (L) 0.9 - 1.2 05/09 9:05 AM [employer]EL[employer] [facility] Not Available Not Available 06/05/2024 12:36:41 05/09/19 25 05/09/2024 PT panel - Plate let poor plasm a by Coagu latio n assay interpretati on and review of laboratory results Abnorm al Not Available Not Available 12:36:41 05/09/19 25 05/09/2024 Lipas e [Enzy matic activ ity/v olume ] in Serum or Plasm a lipase [enzymatic activity/vol ume] in serum or plasma 36 U/L low: 8U/Lhi gh: 78U/L LIPAS E 36 8 - 78 U/L 05/09 9:09 AM [employer] OSMETHODIST [facility] Not Available Not Available 06/05/2024 12:36:40 05/09/19 25 05/09/2024 Lipas e [Enzy matic activ ity/v olume ] in Serum or Plasm a interpretati on and review of laboratory results Normal Not Available Not Available 05/24 12:36:40 05/09/19 25 05/09/2024 Diogo ol [Mass /volu me] in Serum or Plasm a ethanol [mass/volume ] in serum or plasma high: 10mg/d L DIOGO OL <10 <10 mg/dL 05/09 9:09 AM [facility] Not Available Not Available 06/05/2024 12:36:40 05/09/1905/09/2024 Diogo ol [Mass /volu me] in Serum or Plasm a interpretati on and review of laboratory results Normal Not Available Not Available 05/24 12:36:40 05/09/1905/09/2024 Compr ehens violet metab olic 1999 panel - Serum or Plasm a sodium [moles/volum e] in serum or plasma 140 mmol/ L low: 136mmo l/Lhig h: 145mmo l/L SODIU M 140 136 - 145 mmol/ L 05/09 9:09 AM [facility] OSMETHODIST [facility] Not Available Not Available 06/05/2024 12:36:40 05/09/1905/09/2024 Compr ehens violet metab olic 2000 panel - Serum or Plasm a potassium [moles/volum e] in serum or plasma 3.1 mmol/ L low: 3.5mmo l/Lhig h: 5.1mmo l/L low POTAS SIUM 3.1 (L) 3.5 - 5.1 mmol/ L 05/09 9:09 AM [facility] Not Available Not Available 06/05/2024 12:36:40 05/09/1905/09/2024 Compr ehens violet metab olic 1999 panel - Serum or Plasm a chloride [moles/volum e] in serum or plasma 99 mmol/ L low: 98mmol /Lhigh : 107mmo l/L CHLOR ROQUE 99 98 - 107 mmol/ L 05/09 9:09 AM [facility] Not Available Not Available 06/05/2024 12:36:40 05/09/19 25 05/09/2024 Compr ehens violet metab olic 1999 panel - Serum or Plasm a carbon dioxide, total [moles/volum e] in serum or plasma 23 mmol/ L low: 22mmol /Lhigh : 30mmol /L CO2, VENOU S 23 22 - 30 mmol/ L 05/09 9:09 AM [facility] [employer] [facility] Not Available Not Available 06/05/2024 12:36:40 05/09/1905/09/2024 Compr ehens violet metab olic 1999 panel - Serum or Plasm a anion gap in serum or plasma 21.1 mmol/ L high: 18mmol /L high ANION GAP 21.1 (H) <18.0 mmol/ L 05/09 9:09 AM [facility] Not Available Not Available 06/05/2024 12:36:40 05/09/19 25 05/09/2024 Compr ehens violet metab olic 1999 panel - Serum or Plasm a glucose [mass/volume ] in serum or plasma 266 mg/dL low: 70mg/d Lhigh: 99mg/d L high GLUCO SE 266 (H) 70 - 99 mg/dL 05/09 9:09 AM [facility] Not Available Not Available 06/05/2024 12:36:40 05/09/1905/09/2024 Compr ehens violet metab olic 2000 panel - Serum or Plasm a urea nitrogen [mass/volume ] in serum or plasma 12 mg/dL low: 10mg/d Lhigh: 20mg/d L BUN 12 10 - 20 mg/dL 05/09 9:09 AM [facility] Not Available Not Available 06/05/2024 12:36:40 05/09/1905/09/2024 Compr ehens violet metab olic 1999 panel - Serum or Plasm a creatinine [mass/volume ] in serum or plasma 0.86 mg/dL low: 0.6mg/ dLhigh : 1mg/dL CREAT ININE , BLOOD 0.86 0.60 - 1.00 mg/dL 05/09 9:09 AM [facility] Not Available Not Available 06/05/2024 12:36:40 05/09/19 25 05/09/2024 Compr ehens violet metab olic 2000 panel - Serum or Plasm a urea nitrogen/cre atinine [mass ratio] in serum or plasma 14 text: 12 - 20 ratio BUN/C REATI NINE RATIO 14 12 - 20 ratio 05/09 9:09 AM [facility] OSMETHODIST JENNIE EDMUNDSON [employer] America[employer] R LAB Not Available Not Available 06/05/2024 12:36:40 05/09/19 25 05/09/2024 Compr ehens violet metab olic 2000 panel - Serum or Plasm a protein [mass/volume ] in serum or plasma 8.6 g/dL low: 6g/dLh igh: 8g/dL high TOTAL PROTE IN 8.6 (H) 6.0 - 8.0 g/dL 05/09 9:09 AM [facility] OSMETHODIST JENNIE EDMUNDSON [employer] [facility] LAB Not Available Not Available 06/05/2024 12:36:40 05/09/19 25 05/09/2024 Compr ehens violet metab olic 2000 panel - Serum or Plasm a albumin [mass/volume ] in serum or plasma 4.4 g/dL low: 3.5g/d Lhigh: 5g/dL ALBUM IN 4.4 3.5 - 5.0 g/dL 05/09 9:09 AM [facility] [employer] R LAB Not Available Not Available 06/05/2024 12:36:40 05/09/1905/09/2024 Compr ehens violet metab olic 2000 panel - Serum or Plasm a albumin/glob ulin [mass ratio] in serum or plasma 1 low: 1high: 2.2 A/G RATIO 1.0 1.0 - 2.2 05/09 9:09 AM [facility] [employer] R LAB Not Available Not Available 06/05/2024 12:36:40 05/09/19 25 05/09/2024 Compr ehens violet metab olic 2000 panel - Serum or Plasm a calcium [mass/volume ] in serum or plasma 9.9 mg/dL low: 8.7mg/ dLhigh : 10.5mg /dL CALCI UM 9.9 8.7 - 10.5 mg/dL 05/09 9:09 AM [facility] Not Available Not Available 06/05/2024 12:36:40 05/09/1905/09/2024 Compr ehens violet metab olic 1999 panel - Serum or Plasm a bilirubin.to geovani [mass/volume ] in serum or plasma 0.5 mg/dL low: 0.2mg/ dLhigh : 1.2mg/ dL T BILI 0.5 0.2 - 1.2 mg/dL 05/09 9:09 AM [employer] [facility] [employer] Moz[employer] R LAB Not Available Not Available 06/05/2024 12:36:40 05/09/1905/09/2024 Compr ehens violet metab olic 1999 panel - Serum or Plasm a aspartate aminotransfe rase [enzymatic activity/vol ume] in serum or plasma 18 U/L low: 6U/Lhi gh: 42U/L SGOT (AST) 18 6 - 42 U/L 05/09 9:09 AM [employer] [facility] [employer]T MozE R LAB Not Available Not Available 06/05/2024 12:36:40 05/09/1905/09/2024 Compr ehens violet metab olic 1999 panel - Serum or Plasm a alanine aminotransfe rase [enzymatic activity/vol ume] in serum or plasma low: 6U/Lhi gh: 55U/L low SGPT (ALT) <6 (L) 6 - 55 U/L 05/09 9:09 AM [employer] [facility] [employer]T MozE R LAB Not Available Not Available 06/05/2024 12:36:40 05/09/1905/09/2024 Compr ehens violet metab olic 1999 panel - Serum or Plasm a alkaline phosphatase [enzymatic activity/vol ume] in serum or plasma 108 U/L low: 40U/Lh igh: 150U/L ALKAL INE PHOSP HATAS E 108 40 - 150 U/L 05/09 9:09 AM [facility] H CENTE R LAB Not Available Not Available 06/05/2024 12:36:40 05/09/19 25 05/09/2024 Compr ehens violet metab olic 2000 panel - Serum or Plasm a glomerular filtration rate/1.73 sq M.predicted among non-blacks [volume rate/area] in serum, plasma or blood by creatinine-b ased formula (MDRD) low: 60 GFR, ESTIM ATED >60 >=60 05/09 9:09 AM [employer] OS YadioE R LAB Not Available Not Available 06/05/2024 12:36:40 05/09/19 25 05/09/2024 Compr ehens violet metab olic 2000 panel - Serum or Plasm a glomerular filtration rate/1.73 sq M.predicted among blacks [volume rate/area] in serum, plasma or blood by creatinine-b ased formula (MDRD) low: 60 GFR, EST. AFRIC AN >60 >=60 05/09 9:09 AM [employer] OS [employer] R LAB Not Available Not Available 06/05/2024 12:36:40 05/09/19 25 05/09/2024 Compr ehens violet metab olic 2000 panel - Serum or Plasm a glomerular filtration rate/1.73 sq M.predicted among non-blacks [volume rate/area] in serum, plasma or blood by creatinine-b ased formula (MDRD) low: 60 GFR, EST. NONAF RICAN >60 >=60 05/09 9:09 AM [employer] OS [employer] R LAB Not Available Not Available 06/05/2024 12:36:40 05/09/19 25 05/09/2024 Compr ehens violet metab olic 2000 panel - Serum or Plasm a interpretati on and review of laboratory results Abnorm al Not Available Not Available 12:36:40 05/09/19 25 05/09/2024 Aceto ne [Pres ence] in Blood acetone [presence] in blood Negati ve text: negati ve ACETO NE Negat violet Negat violet 05/09 11:24 AM [employer] OS Yadio[facility] R LAB Not Available Not Available 06/05/2024 12:36:40 05/09/19 25 05/09/2024 Aceto ne [Pres ence] in Blood interpretati on and review of laboratory results Normal Not Available Not Available 05/24 12:36:40 05/09/19 25 05/09/2024 Gluco se [Mass /volu me] in Blood glucose [mass/volume ] in blood 245 mg/dL low: 70mg/d Lhigh: 99mg/d L high GLUCO SE,BE DSIDE POCT 245 (H) 70 - 99 mg/dL 05/09 8:34 AM [employer] [facility] Not Available Not Available 06/05/2024 12:36:40 05/09/1905/09/2024 Gluco se [Mass /volu me] in Blood interpretati on and review of laboratory results Abnorm al Not Available Not Available 12:36:40 03/13/2003/04/2024 MAMMO , scree rajwinder, digit al, bilat eral No observ ation record ed. [address] [place], [address], 03/28/2024 09:12:43 05/09/1904/17/2024 XR, foot, 3 or more view No observ ation record ed. [address] [place], [address], 06/10/2024 15:31:30 Result Notes None recorded. Problems Name Problem SNOMED Code Status Onset Date Resolution Date Notes Provider Name and Address Organization Details Recorded Time Uncontro lled type 2 diabetes mellitus 950583978 Active 2017 Jailene Guajardo MD Attn: Miranda henao,[address] [place], [address], [place] - [facility] 4 17:56:41 Mixed anxiety and depressi ve disorder 319841317 Active 2017 Jailene Guajardo MD Attn: Miranda henao,[address] [place], [address], [place] [facility] 4 17:56:35 Hyperlip idemia 17695155 Active 2017 Jailene Guajardo MD Attn: Miranda henao,[address] [place], [address], [place] [facility] 4 17:56:34 Bipolar disorder 75051578 Completed 202210/10/2023 does not know type- denies any manic episodes- previousl ytx with Ziprasido ne Anupama Dania null, [place] [facility] 4 06:14:58 [facility] hyperten nevaeh 72120805 Active 2022 Jailene Guajardo MD Attn: Rockin g,[address] [facility], [place], [address], [place] [facility] 4 17:56:32 Subclini jayson hyperthy roidism 356435191 Active 202201/12/23- TSH-0.434 Jayce Mishra MD Attn: Rockmariel g,[address] [facility], [place], [address], [place] [facility] 3 01:22:05 Steatosi s of liver 320333565 Active 2023 RADHIKA MAXWELL MD Attn: Miranda g,[address] [facility], [place], [address], [place] [facility] 4 23:18:03 Esophagi tis 41013448 Active 2023 Jailene Guajardo MD Attn: Miranda henao,[address] [facility], [place], [address], [place] [facility] 4 14:51:04 Nodule of lung 918957950 Active 2023 Jailene Guajardo MD Attn: Miranda g,[address] [facility], [place], [address], [place] [facility] 4 14:51:06 Bronchie ctasis 59118569 Active 2023 Jailene Guajardo MD Attn: Miranda g,[address] [facility], [place], [address], [place] [facility] 4 14:51:01 Hiatal hernia 89458520 Active 2023 Jailene Guajardo MD Attn: Miranda henao,[address] [facility], [place], [address], [facility] - SI 4 14:51:15 Bipolar disorder 97823895 Active Anupama abreu, [place] - [facility] 4 06:14:58 Presepta l cellulit is 388826869 Active 2023 JACKSON CHAPA DO Attn: Miranda henao,[address] [facility], [place], [address], [facility] - [facility] 4 15:13:26 Irritabl e bowel syndrome 28292463 Active 2024 Vitor Chris MD Attn: Miranda henao,[address] [facility], [place], [address], [facility] - SI 5 14:42:56 Problem Notes None recorded. Procedures Surgical History Date Name Laterality Status Provider Name and Address Organization Details Recorded Time 07/31/19 24 cardiac catheterization completed SHILPA Silver [facility] 08/17/2023 14:34:16 04/05/19 19 Date of Last Pap Smear completed Lola Betts RN [facility] 04/08/2018 16:24:19 01/22/20 18 Most Recent Mammogram completed Anika Morejon MA [facility] 04/05/2018 08:09:58 03/26/19 15 Other completed Lola Betts RN [facility] 05/11/2015 14:33:50 03/26/18 99 Other completed Ary Mccrary MA [facility] 07/01/2015 17:06:38 03/26/18 88 Tubal Ligation completed ALEXIA Quevedo [facility] 07/01/2015 17:06:38 03/26/18 88 Caesarean Section completed ALEXIA Quevedo [facility] 07/01/2015 17:06:38 03/26/18 87 Caesarean Section completed ALEXIA Quevedo [facility] 07/01/2015 17:06:38 03/26/18 84 Caesarean Section completed Ary Mccrary MA [facility] 07/01/2015 17:06:38 Imaging Results Imaging Date Name Status LastModified by Organiz ation Details LastModified Time 03/04/2024 MAMMO, screening, digital, bilateral completed [address] [place], [address], 03/28/2024 09:12:43 04/17/2024 XR, foot, 3 or more view completed [address] [place], [address], 06/10/2024 15:31:30 Procedure Notes None recorded. Medical Equipment None Reported. Allergies No known drug allergies Medications Name Sig Start Date Stop Date Status Note LastModified by Organization Details LastModified Time Prescripti on - Prior Authorizat ion Request active Not Available Not Available Not Available Prometrium 200 mg capsule Take 1 capsule every day by oral route for 10 days. 06/06 completed Not Available Not Available Not Available furosemide 40 mg tablet TAKE 1 TABLET BY MOUTH DAILY active Not Available Not Available No t Available metformin 500 mg tablet Take 1 tablet twice a day by oral route. 12/12 completed Not Available Not Available Not Available bupropion HCl SR 150 mg tablet,12 hr sustained- release Take 1 tablet twice a day by oral route. 12/12 completed Not Available Not Available Not Available trazodone 50 mg tablet TAKE 1 TABLET BY MOUTH EVERY DAY 04/10 completed Not Available Not Available Not Available azithromyc in 250 mg tablet TAKE 2 TABLETS (500 MG) BY ORAL ROUTE ONCE DAILY FOR 1 DAY THEN 1 TABLET (250 MG) BY ORAL ROUTE ONCE DAILY FOR 4 DAYS 05/01 completed Not Available Not Available Not Available clonidine 0.2 mg/24 hr weekly transderma l patch Apply 1 patch(es ) every week by transder mal route. active Not Available Not Available No t Available pravastati n 40 mg tablet TAKE 1 TABLET BY MOUTH EVERY DAY 01/29 completed Not Available Not Available Not Available citalopram 10 mg tablet Take 1 tablet(s ) every day by oral route for 30 days. 2023 active Not Available Not Available Not Avai lable medroxypro gesterone 2.5 mg tablet 10/25 /2016 completed Not Available Not Available Not Available hydrocodon e 5 mg-acetami nophen 325 mg tablet TAKE 1 TABLET EVERY 6 HOURS NEEDED PAIN 07/23 completed Not Available Not Available Not Available senna 8.6 mg tablet 11/19 completed Not Available Not Available Not Available famotidine 40 mg tablet 09/09 completed Not Available Not Available Not Available Lantus U-100 Insulin 100 unit/mL subcutaneo us solution Inject 23 units every day by subcutan eous route in the evening. active Not Available Not Available No t Available cyanocobal moore (vit B-12) 1,000 mcg tablet active Not Available Not Available Not Available metronidaz ole 500 mg tablet Take 1 tablet twice a day by oral route for 7 days. active Not Available Not Available No t Available acetaminop hen 300 mg-codeine 30 mg tablet active Not Available Not Available Not Available tramadol 50 mg tablet active Not Available Not Available Not Available spironolac tone 25 mg tablet TAKE 1 TABLET BY MOUTH DAILY 11/19 completed Not Available Not Available Not Available amoxicilli n 500 mg tablet Take 1 tablet every 8 hours by oral route. 01/12 completed Not Available Not Available Not Available clonidine HCl 0.2 mg tablet 07/23 completed Not Available Not Available Not Available citalopram 20 mg tablet TAKE 1 AND 1/2 TABLETS BY MOUTH EVERY DAYP t. needs an appointm ent before next refill 01/29 completed Not Available Not Available Not Available estradiol 1 mg tablet TAKE 1 TABLET BY MOUTH EVERY DAY. PLEASE CALL OFFICE FOR APPOINTM ENT 01/29 completed Not Available Not Available Not Available trazodone 100 mg tablet TAKE 1 TABLET BY MOUTH TWICE DAILY active Not Available Not Available No t Available dicyclomin e 20 mg tablet Take 1 tablet 3 times a day by oral route for 30 days, for IBS. 2024 active Not Available Not Available Not Avai lable benzonatat e 100 mg capsule TAKE 1 CAPSULE BY MOUTH EVERY DAY NEEDED FOR COUGH active no longer taking Not Available Not Available Not Available cephalexin 500 mg capsule active Not Available Not Available Not Available pantoprazo le 40 mg tablet,jaron felized release TAKE 1 TABLET BY MOUTH DAILY active Not Available Not Available No t Available metformin 1,000 mg tablet TAKE 1 TABLET BY MOUTH TWICE DAILY 05/01 completed Not Available Not Available Not Available lisinopril 10 mg tablet Take 1 tablet every day by oral route. 07/23 completed Not Available Not Available Not Available polymyxin B sulfate 10,000 unit-trime thoprim 1 mg/mL eye drops INSTILL 1 DROP INTO AFFECTED EYE(S) BY OPHTHALM IC ROUTE EVERY 6 HOURS 01/17 completed Not Available Not Available Not Available nicotine 21 mg/24 hr daily transderma l patch Apply 1 patch every day by transder mal route in the morning. active Not Available Not Available No t Available gabapentin 300 mg capsule Take 1 capsule( s) every day by oral route. 2024 active Not Available Not Available Not Avai lable omeprazole 20 mg capsule,de layed release Take 1 capsule every day by oral route. 11/17 completed Not Available Not Available Not Available estradiol 2 mg tablet 01/17 completed Not Available Not Available Not Available metoprolol succinate ER 25 mg tablet,ext ended release 24 hr active Not Available Not Available Not Available insulin lispro (U-100) 100 unit/mL subcutaneo us solution ADMINIST ER 5 UNITS UNDER THE SKIN THREE TIMES DAILY BEFORE MEALS DIRECTED 08/16 completed Not Available Not Available Not Available oxycodone- acetaminop hen 7.5 mg-325 mg tablet active Not Available Not Available Not Available estradiol 0.01% (0.1 mg/gram) vaginal cream Insert 1 applicat orful every day by vaginal route as needed for 30 days. active Not Available Not Available No t Available methylpred nisolone 4 mg tablets in a dose pack active Not Available Not Available Not Available albuterol sulfate HFA 90 mcg/actuat ion aerosol inhaler INHALE 2 PUFFS BY MOUTH EVERY 4 TO 6 HOURS NEEDED active Not Available Not Available No t Available ondansetro n 4 mg disintegra ting tablet DISSOLVE ONE TABLET BY MOUTH EVERY 6 HOURS NEEDED FOR NAUSEA . FIRST LINE active Not Available Not Available No t Available Microlet Lancet USE TO TEST BLOOD SUGARS BID active Not Available Not Available No t Available metoclopra mide 10 mg tablet 09/17 completed Not Available Not Available Not Available progestero ne micronized 100 mg capsule TAKE 1 CAPSULE BY MOUTH EVERY DAY 01/29 completed Not Available Not Available Not Available amoxicilli n 875 mg-potassi um clavulanat e 125 mg tablet TAKE 1 TABLET BY MOUTH EVERY 12 HOURS FOR 7 DAYS 12/12 completed Not Available Not Available Not Available hydroxyzin e pamoate 25 mg capsule TAKE 1 CAPSULE BY MOUTH THREE TIMES DAILY NEEDED 04/10 completed Not Available Not Available Not Available insulin lispro (U-100) 100 unit/mL subcutaneo us pen INJECT 5 UNITS UNDER THE SKIN THREE TIMES DAILY BEFORE MEALS DIRECTED active Not Available Not Available No t Available escitalopr am 10 mg tablet TAKE 1 TABLET BY MOUTH EVERY DAY 07/23 completed Not Available Not Available Not Available aripiprazo le 5 mg tablet Take 1 tablet(s ) every day by oral route for 30 days. active Not Available Not Available No t Available Gas Relief Extra Strength 125 mg chewable tablet active Not Available Not Available Not Available Fish Oil take 1 capsule by mouth once daily 01/29 completed OTC Not Available Not Available Not Available lubiprosto ne 24 mcg capsule active Not Available Not Available Not Available vareniclin e tartrate 0.5 mg (11)-1 mg (42) tablets in a dose pack FOLLOW PACKAGE DIRECTIO NS 03/27 completed Not Available Not Available Not Available BD Ultra-Fine Short Pen Needle 31 gauge x 5/16 USE ONCE DAILY WITH LANTUS SOLOSTAR active Not Available Not Available No t Available Januvia 100 mg tablet TAKE 1 TABLET BY MOUTH EVERY DAYPLE ASE CALL TO RESCHEDU LE FOLLOW UP APPT. LAZARO 01/29 completed Not Available Not Available Not Available Lantus Solostar U-100 Insulin 100 unit/mL (3 mL) subcutaneo us pen ADMINIST ER 25 UNITS UNDER THE SKIN EVERY DAY active Not Available Not Available No t Available Contour Next Test Strips use to test blood sugars twice daily 2023 active Not Available Not Available Not Avai lable Victoza 2-Nilesh 0.6 mg/0.1 mL (18 mg/3 mL) subcutaneo us pen injector ADMINIST ER 1.2 MG UNDER THE SKIN EVERY DAY 07/23 completed Not Available Not Available Not Available Contour Next Meter CHECK BLOOD SUGAR BID active Not Available Not Available No t Available Jardiance 10 mg tablet TAKE 1 TABLET BY MOUTH EVERY DAY active Not Available Not Available No t Available TechLITE Pen Needle 32 gauge x 5/32 USE ONCE DAILY WITH VICTOZIA 09/17 completed Not Available Not Available Not Available aspirin 81 mg capsule Take 1 capsule every day by oral route. 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 daily active Not Available Not Available No t Available Dexcom G7 Sensor device USE TO TEST BLOOD GLUCOSE FOUR TIMES DAILY active Not Available Not Available No t Available Dexcom G7 Sensor Use to test blood sugar daily 09/09 completed Not Available Not Available Not Available Ozempic 0.25 mg or 0.5 mg (2 mg/3 mL) subcutaneo us pen injector INJECT 0.25 MG UNDER THE SKIN EVERY WEEK active Not Available Not Available No t Available Vitals Date Recorded Body height Provider Name an d Address Organization Details Last Updated DateTime 12/31/2023 154.94 cm Angel Luis Vasquez [place] [facility] 12/31/19 24 14:50:51 Date Recorded Body height Body mass index (BMI) Body weight Heart rate Body temperature Respiratory rate Oxygen saturation Oxygen saturation in Arterial blood by Pulse oximetry Systolic blood pressure Diastolic blood pressure Provider Name and Address Organization Details Last Updated DateTime 5 154.94 cm 28.4 kg/m2 43207.2 9 g 79 /min 97.5 [degF] 16 /min 95 % 95 % 138 mm[Hg] 74 mm[Hg] Tiffany Abdul MA [place] - [facility] 5 16:04:53 Date Recorded Body height Body mass index (BMI) Body weight Body temperature Respiratory rate Heart rate Systolic blood pressure Diastolic blood pressure Provider Name and Address Organization Details Last Updated DateTime 5 154.94 cm 27.1 kg/m2 02913.1 1 g 97.3 [degF] 16 /min 73 /min 96 mm[Hg] 67 mm[Hg] Angel Luis Vasquez [place] - [facility] 5 15:18:13 Date Recorded Body height Provider Name an d Address Organization Details Last Updated DateTime 05/09/2024 154.94 cm Judy Lyles MA [facility] 025 08:48:36 Social History Question Answer Notes LastModified by Organizat ion Details LastModified Time Tobacco Smoking Status Current Every Day Smoker Lola Betts RN null, [facility] 05/11/2015 14:33:51 What Is Your Level Of Alcohol Consumption? Occasional Information not available 07/01/2015 In The 14 Days Before Symptom Onset, Have You Had Close Contact With A Laboratory-confir med COVID-19 While That Case Was Ill? No Information not available 01/12/2023 In The 14 Days Before Symptom Onset, Have You Had Close Contact With A Person Who Is Under Investigation For COVID-19 While That Person Was Ill? No Information not available 01/12/2023 Have You Been To An Area Known To Be High Risk For COVID-19? No Information not available 01/12/2023 Are You Currently Employed? No Information not available 01/12/2023 Marital Status Informatio n not available 07/01/2015 What Was The Date Of Your Most Recent Tobacco Screening? 04/10/2024 Information not available 04/10/2024 How Many Children Do You Have? 3 [email or web address] Information not available 05/11/2015 What Is Your Relationship Status? [email or web address] Information not available 03/27/2024 Do You Have Smoke And Carbon Monoxide Detectors In Your Home? Yes Information not available 01/12/2023 Are You Passively Exposed To Smoke? Yes Information no t available 01/12/2023 How Much Tobacco Do You Smoke? 0.5 PPD Information not available 04/10/2024 Do You Use Any Illicit Or Recreational Drugs? Yes Marijuana [email or web address] Information not available 08/17/2023 Has Tobacco Cessation Counseling Been Provided? No Information not available 01/12/2023 On What Date Was Tobacco Cessation Counseling Provided? 04/10/2024 Information not available 04/10/2024 How Many Years Have You Smoked Tobacco? 35 Information not available 07/01/2015 Do You Or Have You Ever Used Any Other Forms Of Tobacco Or Nicotine? No Information not available 01/12/2023 Sex: Female Functional Status None recorded. Mental Status None recorded. Family History Relationship Description Onset Age of this Age Resolved Age Notes LastModified by Organization Details LastModified Time Mother Dementia Not availabl e 07/01/2015 17:06:38 Mother Hypercholest erolemia Not available 2015 17:06:38 Father Malignant tumor of colon Not available 2015 17:06:38 Father Diabetes mellitus Not available 2015 17:06:38 Father Hypercholest erolemia Not available 2015 17:06:38 Father Malignant tumor of prostate Not available 2015 17:06:38 Sister Diabetes mellitus Not available 2015 17:06:38 Sister Hypercholest erolemia Not available 2015 17:06:38 Brother Diabetes mellitus Not available 2015 17:06:38 Brother Hypercholest erolemia Not available 2015 17:06:38 Notes:no breast ca hx, no ne w 07/20/23, 08/17/23, 12/31/23, 04/10/24 Medical History Condition Response Diabetes Y Anxiety Disorder Y Anxiety/Depression Y Headaches/Migraines Y Headaches Y Depression Y Gynecological History Statement/Question Response Menses Monthly N If Post Menopausal, Age at Menopause 45 Date of Last Pap Smear 04/05/2018 Current Control Method Menopause Most Recent Mammogram 01/21/2018 LMP Approximate Obstetrics History GPAL:G 3 P 3 0 0 3 Type Value Full Term 3 Living 3 Total 3 Immunizations Vaccine Type Date Status Note Provider Nam e and Address Organization Details Recorded Time Influenza, split virus, quadrivalent, PF 6 completed Not Available [facility] 04/12/2019 02:43:05 COVID-19 vaccine, vector-nr, [id number], PF, 0.5 mL 1 completed Jayce Mishra MD Attn: [address] [place], [address], [facility] 02/19/2023 14:02:33 Influenza, split virus, quadrivalent, PF 8 completed Not Available [facility] 04/12/2019 02:35:58 Influenza, split virus, quadrivalent, preservative 0 completed Ary Mccrary MA null, [facility] 05/01/2019 12:07:30 Influenza, split virus, quadrivalent, preservative 0 completed NadeenNatalie Guerra null, [facility] 01/19/2020 09:01:59 Influenza, split virus, quadrivalent, preservative 3 completed ADAM GALVAN MD Attn: [address] [facility], [place], [address], [facility] 01/22/2023 10:14:00 Past Encounters Encounter ID Performer Location Encounter Start Date Encounter Closed Date Diagnosis/Indication Diagnosis SNOMED-CT Code Diagnosis ICD10 Code Diagnosis Note [id number] Otf Yu MD [facility] ([facility] 205) 2 [facility] [address] [address] 05/11/2015 14:16:42 05/12/2015 10:17:47 Gynecologic examination 56172172 Z01.419 Menopause present 827554 006 N95.1 Screening for malignant neoplasm of breast 399197679 Z12.39 Screening for malignant neoplasm of colon 538401106 Z12.11 [id number] Eloy Ortiz [facility] [address] [place] [address] [address] 07/01/2015 16:49:43 07/01/2015 17:27:11 Adult health examination 259830088 Z00.00 History of depression 16 4536056 Z86.59 [place] [facility] disease 9074390 05 H10.89 [id number] Eloy Ortiz [facility] [address] [place] [address] 1 01/18/2016 13:59:21 01/19/2016 11:19:52 Uncontrolled type 2 diabetes mellitus 253560342 E11.65 Mixed anxi ety and depressive disorder 917448165 F41.8 Administra tion of influenza vaccine 44587588 Z23 [id number] ALEXIA Quevedo 14 IM [address] [facility] [place] [address] 12/12/2017 14:15:38 12/13/2017 16:16:22 Uncontrolled type 2 diabetes mellitus 991052064 E11.65 Tobacco user 085532948 Z 72.0 Mixed anxi ety and depressive disorder 684990314 F41.8 Screening for malignant neoplasm of breast 398243203 Z12.31 Administra tion of influenza vaccine 48900028 Z23 [id number] MD Chapin Payne 14 OB [address] [facility] [place] [address] 12/14/2017 13:45:00 12/18/2017 12:45:38 Dyspareunia 84215240 N94.10 Menopause present 378763 006 N95.1 [id number] Eloy Carrera 14 IM [address] [facility] [place] [address] 02/05/2018 14:35:34 02/12/2018 11:39:52 Uncontrolled type 2 diabetes mellitus 501469663 E11.65 Mixed anxi ety and depressive disorder 928705308 F41.8 [id number] MD Chapin Payne 14 OB 4 [facility] [place] [address] 04/05/2018 10:47:55 04/05/2018 13:24:10 Screening for malignant neoplasm of colon 701968220 Z12.11 Gynecologi c examination 30921387 Z01.419 Menopause present 167655 006 N95.1 [id number] Eloy Carrera 14 IM [address] [facility] [place] [address] 06/06/2018 10:55:35 06/11/2018 14:40:35 Uncontrolled type 2 diabetes mellitus 128282710 E11.65 Mixed anxi ety and depressive disorder 544108343 F41.8 [id number] ALEXIA Quevedo 14 IM 4 [facility] [place] [address] 12/24/2018 11:27:26 12/24/2018 16:26:28 Mixed anxiety and depressive disorder 099317851 F41.8 Uncontroll ed type 2 diabetes mellitus 398186693 E11.65 Hyperlipidemia 76379198 E78.2 [id number] Eloy Carrera 14 IM [address] [facility] [place] [address] 02/27/2019 13:47:15 02/28/2019 12:39:50 Upper respiratory infection 01521967 J06.9 [id number] Eloy Carrera 14 IM [address] [facility] [place] [address] 1 05/01/2019 11:26:03 05/02/2019 11:45:59 Uncontrolled type 2 diabetes mellitus 421989790 E11.65 Increase lantus to 10 units daily Cont with januvia Administra tion of influenza vaccine 06554559 Z23 [id number] Eloy Carrera 14 IM 4 [facility] [place] [address] 1 05/08/2019 11:31:41 05/09/2019 16:06:50 Uncontrolled type 2 diabetes mellitus 994419541 E11.65 Increase lantus to 15 units daily Cont with januvia [id number] Eloy Carrera 14 IM [address] [facility] [place] [address] 1 06/19/2019 08:10:16 06/20/2019 10:21:58 Uncontrolled type 2 diabetes mellitus 703877454 E11.65 Upper resp iratory infection 96229428 J06.9 [id number] Eloy Carrera 14 IM [address] [facility] [place] [address] 1 08/12/2019 08:56:02 08/13/2019 08:16:38 Abdominal pain 66386897 R10.9 [id number] Eloy Carrera 14 IM [address] [facility] [place] [address] 1 08/19/2019 09:01:04 08/20/2019 07:03:49 Abdominal pain 30667800 R10.9 Improving [id number] Eloy Carrera 14 IM 4 [facility] [place] [address] 1 11/18/2019 08:28:25 11/19/2019 15:29:18 Mixed anxiety and depressive disorder 314890030 F41.8 Increased citalopram Uncontroll ed type 2 diabetes mellitus 793677815 E11.65 Hyperlipidemia 71692823 E78.2 [id number] Eloy Carrera 14 PEDS [address] [facility] [place] [address] 01/16/2020 10:35:16 01/19/2020 20:33:06 Administration of influenza vaccine 51641475 Z23 [id number] MD Chapin MONROY 14 IM [address] [facility] [place] [address] 01/12/2023 13:45:30 01/24/2023 12:35:23 Type 2 diabetes mellitus 39583841 Z79.4 Last HbA1C 5.8% pt was treated with insulin injx.Today 's HbA1C is 9.9% ; pt out of all her meds, was taking insulin from her family membersWil l stop insulin as she has been out of it for some timestart GLP1 (victoza) through [employer]B, pt prefers injectable medication s rather than PO.Start at 0.6mg daily x7 days, increase dose by 0.6mg weekly as tolerated up to a max dose of 1.8 mg dailyhas glucometer . Check fasting BG daily, Follow up in 1 months time.Diabe tic foot exam done today, unremarkab le. Hyperlipidemia 53659337 E78.5 Last LDL was measured in 2019; ordered today to establish baseline values; will continue treatment if labs show elevated LDL per patient request. Mixed anxi ety and depressive disorder 605939823 F41.8 previously on citalopram - will start lexapro 10 mgCheck TSH and CBC for other causes of anxiety Gastroesop hageal reflux disease 034665351 K21.9 Previously tolerated; worked well, will restart.wa s previously on PPI, will transition to Famotidine (H2 zara) due to better side-effec t process, if not improvemen t, resume on PPI for 6-8 weeks Adult heal th examination 612871274 Z00.01 Flushot for regular health maintenanc eScreening colonoscop y as indicated by USPSTF guidelines Screening for malignant neoplasm of colon 258577213 Z12.11 USPSTF guidelines screening, sent for colonoscop y Administra tion of influenza vaccine 29012307 Z23 Flu vaccine per yearly recommenda tions Vaginal dryness 99952144 N89.8 was previously taking progestero ne 100mg/estr adiol 1mg.reasse ssment today shows continued symptoms; primarily Vaginal dryness rather than full vasomotor symptoms, switch to topical vaginal estrogen rather than PO HRTdenies VB at this time. [id number] MD Chapin Anna 14 IM [address] [facility] [address] [place] [address] 01/29/2023 14:53:34 02/14/2023 08:27:16 Mixed anxiety and depressive disorder 462498468 F41.8 Pt reports increased fatigue, nausea, and a feeling of a weight in her chest since starting Lexapro. Reports she was on something else in the past without issue (citalopra m per chart review). Also reports depressed mood and generally unwell for the past few weeks. Denies SI and HI. Lives with and adult step-daugh ter, feels safe and well-suppo rted. Reports poor sleep but declines further discussion .- discontinu e escitalopr am- start citalopram 10 mg tablet- follow-up at next appointmen t to discuss medication tolerance and sleep Hyperlipidemia 96146423 E78.5 Lipid panel 01/12/23:c holesterol , total 281triglyc erides 116HDL cholestero l 66VLDL cholestero l jayson 23LDL chol calc (nih) 209 ASCVD score: 8.5-13.7% Recommend medium to high intensity statin initiation .Pt informed of risk of cardiovasc ular event and benefits of initiating a statin.Pt wishes to defer to next appointmen t with Dr. Jacobsen. - Start medium to high intensity statin at next appointmen t Uncontroll ed type 2 diabetes mellitus 914782163 E11.65 Pt reports she has been taking victoza as prescribed without issue. Does not take any other diabetes medication . Also reports she has been eating healthy diet with the help of her family. Reports she has been performing random blood glucose checks ranging from 130s to 150s.- Counselled pt on proper measuremen t of fasting blood sugar- Reinforced healthy diet and commended pt for taking steps in the right direction- Plan to review blood sugar log at next appointmen t Elevated blood-pressure reading without diagnosis of hypertension 845174342 R03.0 Blood pressure elevated to 166/93 on arrival, decreased to 138/94 on repeat. Pt denies history of high blood pressure.- Recheck at next appointmen t- Consider home blood pressure cuff [id number] MD Chapin Anna 14 IM [address] [facility] [place] [address] 02/19/2023 13:59:00 02/27/2023 10:16:19 Mixed anxiety and depressive disorder 727245425 F41.8 - citalopram working well per patient. improvemen t in symptoms. No SI/HI- will refer for CBT for added benefits Normal weight 65031921 Z 68.23 - normal BMI; discussed regular exercise and healthy dietary habits Essential hypertension 02672923 I10 - BP elevated to 170/80 today ; prev yadi BP 166/93.- denies chest pain, palpitatio ns, or LE edema- will plan to start on МАРИЯ inhibitor and max out prior to adding 2nd agent. Bipolar disorder 1949456 4 F31.9 - prev. Dx per patient- tx juany peguero Denies manic episodes- she does not feel she needs treatment at his time; continue to monitor symptoms particular ly manic type symptoms given she is on SSRI. Uncontroll ed type 2 diabetes mellitus 560388081 E11.65 - last A1c - 01/15/23- 9.9- encouraged to perform 30 to 60 minutes of moderate-i ntensity aerobic activity on most days of the week (at least 150 minutes of moderate-i ntensity aerobic exercise per week; no more than two consecutiv e days without exercise- exercise with free weights or weight machines) at least twice per week- Body weight loss of 5 to 10 percent may also improve nonalcohol ic steatohepa titis, sleep apnea, and other comorbidit ies of type 2 diabetes- Increasing fiber intake preferably through food (vegetable s, fruits, legumes, and intact whole grains) may help to modestly lower A1C and at the same time promote eating lower glycemic index foods/- check a1c- 03/2022; continue victoza Subclinica l hyperthyroidism 483148037 E05.90 - 01/12/23- TSH-0.434 w normal T4- plan to repeat levels in 1-2 months; if now hyperthyro id may be cause of HTN [id number] MD Chapin Potts 14 IM 4 [facility] [place] [address] 07/20/2023 16:53:55 07/25/2023 13:10:45 At increased risk for cardiovascular event 175778838 Z91.[address] Hammond during last hospitaliz ation, who recommende d outpatient follow-up, will send referral at this time and patient has upcoming appointmen renee thornton this provider to discuss blood pressure management Type 2 cate alysia mellitus 73545987 Z79.4 - Patient has uncontroll ed diabetes type 2, A1c today of 9.8 with difficulty controllin g blood sugars specifical ly in the a.m.,- Will ask for pharmacist referral to help obtain Dexcom and to better control blood sugars- Advised patient to do 10 units basal with 5 units scheduled and to decrease every night by 1 unit for a.m. blood sugars less than 100- patient asymptomat ic With these blood sugar drops however given return precaution s and diet instructio ns, denies any nephropath y at this time Panic attack 689712761 F 41.0 [id number] MD Chapin MONROY [address] [place] [address] 07/24/2023 10:28:01 08/10/2023 16:20:32 Nodule of lung 824858787 R91.1 CT 06/2023- Subpleural nodule anterior right upper lobe 0.3 cm. Per Fleischner Society Guidelines , non-contra st chest CT at 3-6 months is recommende d. If the nodules are stable at time of repeat CT, then future CT at 18-24 months (from today's scan) is considered optional for low-risk patients, but is recommende d for high-risk patients. Bilateral lower leg edema 553219022 R60.0 Generalize d nonpitting edema. Differenti al to include hyper/hypo thyroidism (hx of subclinica l hyperthyro idism + recent hospitaliz ation)- will check TSH, hypoalbumi nemia (albumin 3.0 during hospital stay, although no hx of liver disease, eating appropriat sarabjit)- will check CMP, PT/INR, CHF (unlikely given normal echo during recent hospitaliz ation)- will check BNP, dietary- recommende d low sodium diet, drug induced (denies recent drug use, current medication s unlikely to cause edema). Unlikely allergic rxn. F/u plan pending labs. Dyspnea 756849844 R06.00 Given SOB and anasarca will check CXR to r/o pulmonary edema. Nicotine dependence 5629 4008 F17.200 4-5 cigarettes per day. Discussed cessation. Essential hypertension 86592459 I10 Currently on clonidine patch for hypertensi on. BP 137/84 today. Was referred to cardiology for BP management . Likely could be managed by PCP although was not addressed at this appointmen t. Echo did not show any cardiac disease. Subclinica l hyperthyroidism 312774549 E05.90 12/2022- TSH .434; was to be repeated but doesn't appear she returned for repeat. Will repeat today given anasarca. Gastro-eso phageal reflux disease with esophagitis 840375283 K21.00 EGD showed grade d esophagiti s. Appears to have been taking famotidine and PPI although really unsure which medication s she is taking in general. Recommende d taking PPI BID as recommende d at hospital discharge. Was recommende d to follow up with GI in three months. Unknown if this has been scheduled. Will send referral. [id number] Froylan Collins MD Chapin 14 IM [address] [facility] [address] [place] [address] 08/17/2023 14:20:11 08/27/2023 12:47:28 Essential hypertension 53873901 I10 - patient prescribed clonidine patches during hospital visit for hypertensi on states she would like to continue with them, will refill at this time- counseled patient on adverse symptoms associated with the use of clonidine patient voiced understand ing but still would prefer to continue with treatment Mixed anxi ety and depressive disorder 158480769 F41.8 mood is stable but would like a refill of rx, will send at this time Type 2 cate betes mellitus 64321371 Z79.4 - Patient has uncontroll ed diabetes type 2, A1c today of 9.8 with difficulty controllin g blood sugars specifical ly in the a.m.- at last visit pt was Advised to do 10 units basal with 5 units scheduled and to decrease every night by 1 unit for a.m. blood sugars less than 100, has had no further issues in this regard but would like another referral placed- Will ask for pharmacist referral to help obtain Dexcom and to better control blood sugars Congestive heart failure 34338061 I50.9 - patient diagnosed with new onset heart failure at last hospital visit, started on goal-direc pamela medical therapy of Jardiance, furosemide 40 mg daily, spironolac tone 25 mg daily, metoprolol XL 25 mg daily- symptoms continue to be well controlled post discharge- instructed patient to continue medication s as listed above at this time and follow up with cardiologi st as instructed at discharge [id number] Korey ELAM 14 IM [address] [facility] [place] [address] 09/04/2023 15:23:11 06/10/2024 13:06:07 Uncontrolled type 2 diabetes mellitus 730566096 E11.65 The patient is on insulin therapy and refuses to switch to alternativ e treatments . Insulin dosage recently increased by 3 units to improve glycemic control. [id number] Korey ELAM 14 IM [address] [facility] [place] [address] 10/22/2023 13:58:50 10/24/2023 03:48:57 Uncontrolled type 2 diabetes mellitus 994097297 E11.65 Uncontroll ed, treated type II diabetes as evidenced by a recent blood glucose of 260 at clinic and an average of fasting blood glucoses of 165-250 reported by the patient. Her most recent A1c back in June was uncontroll ed at 9.8%. Currently, her type II diabetes is treated with Lantus 20 units SC every evening, insulin lispro 5 units SC TID before meals, and Jardiance 10 mg daily. According to the ADA 2024 guidelines , fasting blood glucose goals are 80-130 and post prandial is less than 180. The A1c goal is less than 7%. However, for this patient we can individual ize her goals based on patient specific factors. The patient reported that she still wanted to enjoy the life she had left and is not as motivated due to wanting to indulge in sugary foods. Therefore, we can target a less stringent A1C goal of less than 7.5% for this patient and she agreed upon target fasting blood glucoses of 80-150. The patient is not currently meeting this goal. The patient currently is on an appropriat e 1st line therapy with an SGLT2i of empagliflo zin which is appropriat e for this patient due to ASCVD risk and CHF. The patient is also on insulin due to not wanting any other therapies, so the Dexcom will hopefully allow us to adjust her insulin appropriat sarabjit based off her continuous levels we will monitor. PlanIncrea se Lantus based on CGM dataStop insulin lispro in the future to minimize the amount of injections needed.Int iate 10-30 minutes of walking a day and max of 3 popsicles consumed per day.Schedu led follow up in 2 weeks with Lisandra San (November 05 @5463).Mon itor A1C at next visitMonit or for s/s of hypoglycem ia (sweating, hunger)Mon itor blood glucose levels continuous ly with DexcomMoni tory blood glucose levels with finger prick when neededCont inue current therapy for now with Lantus 20 units at bedtime, Insulin lispro 5 units TID before meals, and Jardiance 10 mg daily. [id number] MD Chapin VALDEZ 14 IM [address] [facility] [place] [address] 11/20/2023 14:11:42 11/24/2023 09:14:12 Overweight 062873518 E66.3 Healthy lifestyle encouraged including regular exercise of at least 150min per week, diet rich in plant based foods and low in added sugars, processed carbohydra shmuel, and high salt foods. Encouraged protein intake mostly with chicken and white fish and limited red meat. Preseptal cellulitis 314 290174 L03.213 No red flag symptoms concerning for orbital cellulitis Will treat with augmentin for 7 daysPatien t should use warm compresspa tient to go to ED if EOM become painful, she has vision changes or she does not improve with 24-48 hrs of abx [id number] MD Chapin MONROY 14 [address] [facility] [place] [address] 11/22/2023 13:54:43 11/29/2023 11:36:22 Preseptal cellulitis 121203979 L03.213 Acute visit 2 days ago, instructed to do a follow-up visit today.Cont inuing day 3 of augmentin; no alarm symptoms; continue current therapy.Fo llow-up on day 7; today is 05/30. [id number] MD Chapin Cordoba 14 IM [address] [facility] [place] [address] 12/13/2023 14:41:47 12/19/2023 11:21:42 Uncontrolled type 2 diabetes mellitus 399105912 E11.65 - patient with a history of uncontroll ed diabetes presenting for follow-up, new A1c of 9, down from 9.8 at previous visit- encourage patient to keep up with diet and exercise as advised, follows with pharmacist for medication control- will have phone visit to further investigat e diabetes and sugar control in 2 weeks' time Insomnia 900502091 G47.0 0 - patient with chronic history of insomnia, states she is unable to fall asleep and stay asleep for has trialed and failed melatonin, Unasyn, Benadryl- will trial trazodone 50 mg at this time Trying to give up smoking 047449131 Z72.0 - patient has a 50+ pack-year smoking history, endorses occasional smoker's cough denies any shortness of breath or chest pain- is endorses wanting to quit will start vertically starter pack at this time- advise patient on the need to decrease number of cigarette smoking to not increase overall total nicotine ingestion Screening for malignant neoplasm of respiratory tract 639155847 Z12.2 - patient with 50+ pack-year smoking history has never had LDCT per USPTF guidelines no alarm symptoms however we will send for screening at this time Screening mammography 24 116087 Z12.31 patient not up-to-date on mammograms no family history of breast cancerwill send referral for mammogram at this time Hiatal hernia 58688852 K 44.9 - patient with known history of hiatal hernia follows with GI with scopes scheduled for January complainin g of increasing GERD causing nausea- advised patient to touch base with GI as she is already on 40 mg of omeprazole b.i.d. as well as Pepcid frequently , stressed the importance of medication compliance - advised patient to follow up with GI to see if scope can be brought forward, we will continue to monitor peripheral ly [id number] MD Chapin Potts 14 IM [address] [facility] [place] [address] 12/31/2023 10:40:52 01/03/2024 03:47:58 [id number] MD Chapin Landaverde 14 IM 4 [facility] [place] [address] 03/27/2024 15:34:55 04/01/2024 14:13:03 Uncontrolled type 2 diabetes mellitus 042276679 E11.65 - Patient with A1c of 9.1, would benefit from additional antihyperg lycemic- will trial ozempic at this time Adult heal th examination 415547663 Z00.00 - 58 F with PMH of uncontroll ed T2DM, mood disorder and HTN- UTD on age appropriat e cancer screenings minus pap which was performed today will follow up on results as necessary Bipolar disorder 2195789 4 F31.9 - pt with a hx of bipolar disorder, has been having hypomanic episodes lately- could benefit from mood stabilizer , will start low dose aripiprozo le at this time if ineffectiv e can consider seroquel which would also help with pt's insomnia Vaginal dryness 31119592 N89.8 menopausal woman with complaints of vaginal dryness, will send in topical estrogen at thist time was also cautioned on frequency of use due to concerns for systemic effects [id number] MD Chapin Cordoba 14 IM [address] [facility] [address] [place] [address] 04/10/2024 15:03:54 04/17/2024 10:08:50 Insomnia 789506429 G47.00 - patient with chronic history of insomnia, failed therapy on trazadone 50mg will increase to 100mg at this time Type 2 cate betes mellitus 27431080 Z79.4 - Patient has uncontroll ed diabetes type 2, A1c today of 9.1 with difficulty controllin g blood sugars specifical ly in the a.m.- currently doing 23 units in the PM,- ozempic has been approved but pt is yet to pick it up, will continue to monitor Diabetic p eripheral neuropathy 625947917 E11.40 - pt with hx of uncontroll ed DM complainin g of symptoms consistent with neuropathy and charcot foot- will trial gabapentin 300mg daily for a week with pt instructed to increase to BID if response is inadequate - will order foot xrays to assess for charcot foot, can consider referral to podiatry after Health Concerns Section Related Observation LastModified by Organization Detai ls LastModified Time None Recorded Concern Status LastModified by Organization Details LastModified Time None Recorded Advance Directives Directive None Recorded Payers Encounter Date Sequence Insurance Name Policy Number Policy Stewart Covered Member ID Stewart Member ID Guarantor Name 12/31/2023 1 [facility] [employer] (POS II) [id number] Calvin Arnett [id number] Chelsy Stram 03/27/2024 1 [facility] [employer] (POS II) [id number] Calvin Arnett [id number] Chelsy Stram 03/27/2024 2 [facility] ON OR AFTER 09/23/20 (MEDICAID REPLACEMENT - HMO) Chelsy Stram [id number] Chelsy Stram 04/10/2024 1 [facility] [employer] (POS II) [id number] Calvin Arnett [id number] Chelsy Stram 04/10/2024 2 [facility] ON OR AFTER 09/23/20 (MEDICAID REPLACEMENT - HMO) Chelsy Stram [id number] Chelsy Stram Notes Date Note Type Note Provider Name and Address Organization Details Recorded Time 12/31/2023 text/html Phone visit scheduled, unable to reach patient. Jailene Guajardo MD Attn: [address] [place], [address], [facility] 12/31/2023 18:37:37 03/27/2024 text/html Annual GYNReport ed bypatient.History:no change in interval history Menstrual cycle:menopausal Urinary symptoms:No hematuria; No incontinence Vulva:No genital lesion Vagina:Normal vaginal discharge;Vaginal itching Breast:No breast pain; No breast lump; No nipple discharge Sexual complaints:Sexual complaints Menopausal Symptoms:Hot flashes;Inadequacy of lubrication of vaginal mucosa Psychological symptoms:Depression;A nxiety 57 yo pt with PMH of uncontrolled T2DM, mood disorder and HTN here for annual visit. Today's concern:- about 2 months ago had a mental breakdown,had thoughts of SI was very volatile emotionally felt like the world was crashing in on her lasted for about 1 week, self resolved - is endorsing a lot anxiety that is affecting her sleep and is not able to shut her brain off and is having to take up to three - is also due for well woman, is not UTD on pap but mammo was WNLhas not gotten results for LDCT Sandy Suresh MD Attn: [address] [place], [address], [facility] [facility] 04/01/2024 10:55:38 04/10/2024 text/html DiabetesReported bypatient.Control:hem oglobin A1C has been greater than 9; hemoglobin A1C goal is less than 7; BP usually runs less than 135/85, goal is Compliance:compliant with medications; compliant with follow-up visits; compliant with diet Self Care:taking aspirin daily Chronic Complications:diabeti c retinopathy: Yes; diabetic neuropathy: Yes 57 yo pt with PMH of uncontrolled T2DM, mood disorder and HTN here for follow up Today's concern:- is tolerating abilify well and has seen a improvement in her moods irregularity, however is still not sleeping will does not think the hydroxyzine is working- diabetes: endorses numbness in feet and pins and needles sensation/burning and itching in her legs, has not picked up ozempic yet Martin Uribe MD Attn: Accounting,[address] [facility], [place], [address], [facility] 04/10/2024 22:04:37 OBGyn Episode No OBEpisode recorded.
--- NOTE | 2024-06-25 18:15 | PC.NURSE ---
Pt unable to provide urina sample at this time
[2024-06-25 18:22] LABS: Basophils Percent Auto 0.2 % (0.2-1.2); Eosinophils Percent Auto 0.1 % (0-4.4); Hematocrit 50.3 % (37.0-47.0); Hemoglobin 17.5 g/dL (12.0-15.0); Immature Granulocyte Absolute 0.05 K/mm3 (0.00-0.031); Immature Granulocyte Percent A 0.3 % (0-0.5); Lymphocytes Absolute Auto 1.54 K/mm3 (0.9-3.2); Lymphocytes Percent Auto 9.5 % (18.3-44.2); Mean Corpuscular HGB Conc 34.8 g/dl (32-36); Mean Corpuscular Hemoglobin 30.3 pg (26-34); Mean Corpuscular Volume 87.2 fl (80-100); Monocytes Absolute Auto 0.9 K/mm3 (0.1-0.6); Monocytes Percent Auto 5.7 % (2.6-8.5); Neutrophils Absolute Auto 13.7 K/mm3 (1.3-6.7); Neutrophils Percent Auto 84.2 % (45.5-73.1); Platelet Count Result 300 k/mm3 (150-375); Red Blood Count 5.77 M/mm3 (4.2-5.4); Red Cell Distribution Width 13.5 % (11.5-14.5); White Blood Count 16.2 K/mm3 (4.5-10.0)
[2024-06-25 18:35] LABS: Alanine Aminotransferase 19 U/L (6-35); Albumin Level 4.8 g/dL (3.5-5.1); Alkaline Phosphatase 131 U/L (38-126); Anion Gap 13 mmol/L (4-12); Aspartate Amino Transferase 24 U/L (14-36); Bilirubin,Total 0.7 mg/dL (0.2-1.3); Blood Urea Nitrogen 25 mg/dL (7-17); Calcium 10.4 mg/dL (8.4-10.2); Carbon Dioxide 39 mmol/L (22-30); Chloride 88 mmol/L (98-107); Estimated CRCL calculation 41 ml/min; Estimated Glomerular Filt Rate > 60; Glucose 81 mg/dL (65-110); Lipase 45 U/L (23-300); Magnesium 1.8 mg/dL (1.6-2.3); Phosphorus 2.4 mg/dL (2.5-4.5); Sodium 140 mmol/L (137-145)
[2024-06-25 18:39] LABS: Beta-Hydroxybutyrate/Acetoacetate 0.98 mmol/L (0.02-0.27)
[2024-06-25] MEDS: ONDANSETRON INJ 4 MG/2 ML VIAL IV PUSH (18:44)
[2024-06-25] MEDS: KETOROLAC 15 MG/ML VIAL (*BKC) IV PUSH (18:44)
[2024-06-25] MEDS: SODIUM CHLORIDE 0.9% IV 1,000 ML 999 ML IV CONT ×2 (18:45→19:51)
[2024-06-25] MEDS: FAMOTIDINE 20 MG/2 ML VIAL IV PUSH (18:45)
--- NOTE | 2024-06-25 19:39 | ED.NAVMDI ---
HPI - Nausea/Vomiting/Diarrhea General Chief complaint: Nausea/Vomiting/Diarrhea Stated complaint: Vomiting/Diabetic Time Seen by Provider: 06/25/24 17:41 Source: patient Mode of arrival: ambulatory Limitations: no limitations History of Present Illness HPI Narrative: This is a 58 year old female that presents to the ER for abdominal pain, nausea, vomiting. Reports this has been a recurrent problem for her for the last several years. Reports she currently Related Data Allergies Allergy/AdvReac Type Severity Reaction Status Date / Time No Known Allergies Allergy Verified 06/25/24 18:26 Review of Systems Review of Systems: CONSTITUTIONAL: Denies fever, chills, or sweats. EYES: Denies visual changes, redness, or discharge. ENT: Denies rhinorrhea, congestion, sore throat, or otalgia. CARDIOVASCULAR: Denies chest pain, palpitations, or edema. RESPIRATORY: Denies cough or dyspnea. GASTROINTESTINAL: Denies abdominal pain, nausea, vomiting, or diarrhea. GENITOURINARY: Denies dysuria or hematuria. SKIN: Denies rash or itching. MUSCULOSKELETAL: Denies back pain, joint pain, or myalgia. NEUROLOGIC: Denies headache, numbness, or weakness. PSYCHIATRIC: Denies anxiety or depression. All systems reviewed & are unremarkable except as noted in HPI and below Course Course Emergency Course: Patient updated on workup. Resting comfortably. Tolerating PO challenge Vital Signs Vital signs: Vital Signs Temperature 97.6 F 06/25/24 17:18 Pulse Rate 119 H 06/25/24 17:18 Respiratory Rate 20 06/25/24 17:18 Blood Pressure 137/60 06/25/24 17:18 Pulse Oximetry 98 06/25/24 17:18 Oxygen Delivery Room Air 06/25/24 17:18 Temperature 97.6 F 06/25/24 17:18 Pulse Rate 88 06/25/24 20:30 Respiratory Rate 19 06/25/24 20:30 Blood Pressure 111/73 06/25/24 20:16 Pulse Oximetry 92 06/25/24 20:30 Oxygen Delivery Room Air 06/25/24 17:18 MDM - Nausea/Vomiting/Diarrhea MDM Narrative Medical decision making narrative: Patient with history of recurrent nausea and vomiting. Ongoing issue over the last several years. Tachycardic upon arrival. This normalized with IV fluids. Blood pressure is stable. She is afebrile and nontoxic appearing. CBC with leukocytosis. Also shows hemoconcentration. Metabolic panel shows evidence of dehydration. Mild hypokalemia. Patient hydrated with closure of her gap. Urine without evidence of infection. CT abdomen and pelvis without acute findings. Drug screen is positive for cannabinoids. Patient updated on workup. Resting comfortably. Tolerating PO challenge. She is to have continued follow-up with her clinical informatics strategist. She was given warnings to return to the ER Differential Diagnosis Differential diagnosis: Likely food poisoning, gastroenteritis, drug-induced nausea and vomiting and dehydration Lab Data Attestation: I reviewed the patient's lab results. 06/25/24 18:16 06/25/24 21:51 Labs: Lab Results 06/25/24 06/25/24 06/25/24 Range/Units 18:16 21:23 21:51 WBC 16.2 H (4.5-10.0) K/mm3 RBC 5.77 H (4.2-5.4) M/mm3 Hgb 17.5 H (12.0-15.0) g/dL Hct 50.3 H (37.0-47.0) % MCV 87.2 (80-100) fl MCH 30.3 (26-34) pg MCHC 34.8 (32-36) g/dl RDW 13.5 (11.5-14.5) % Plt Count 300 (150-375) k/mm3 MPV 12.0 H (7.4-10.4) fl Immature Gran % (Auto) 0.3 (0-0.5) % Neut % (Auto) 84.2 H (45.5-73.1) % Lymph % (Auto) 9.5 L (18.3-44.2) % [place] % (Auto) 5.7 (2.6-8.5) % Eos % (Auto) 0.1 (0-4.4) % Baso % (Auto) 0.2 (0.2-1.2) % Lymph # (Auto) 1.54 (0.9-3.2) K/mm3 [place] # (Auto) 0.9 H (0.1-0.6) K/mm3 Eos # (Auto) 0.0 (0-0.3) K/mm3 Baso # (Auto) 0.0 (0.0-0.1) K/mm3 Abs Immat Gran (auto) 0.05 H (0.00-0.031) K/mm3 Absolute Neuts (auto) 13.7 H (1.3-6.7) K/mm3 Absolute Nucleated RBC 0.000 (0.0-0.012) K/mm3 Nucleated RBC % 0.0 (0.0-0.2) % Sodium 140 138 (137-145) mmol/L Potassium 3.0 L 3.0 L (3.4-5.0) mmol/L Chloride 88 L 97 L (98-107) mmol/L Carbon Dioxide 39 H 31 H (22-30) mmol/L Anion Gap 13 H 10 (4-12) mmol/L BUN 25 H 21 H (7-17) mg/dL Creatinine 0.93 0.75 (0.7-1.0) mg/dL Estim Creat Clear Calc 41 50 ml/min Estimated GFR > 60 > 60 (59 - ) Glucose 81 76 (65-110) mg/dL Calcium 10.4 H 8.6 (8.4-10.2) mg/dL Phosphorus 2.4 L (2.5-4.5) mg/dL Magnesium 1.8 (1.6-2.3) mg/dL Total Bilirubin 0.7 (0.2-1.3) mg/dL AST 24 (14-36) U/L ALT 19 (6-35) U/L Alkaline Phosphatase 131 H (38-126) U/L Total Protein 9.0 H (6.3-8.2) g/dL Albumin 4.8 (3.5-5.1) g/dL Lipase 45 (23-300) U/L Beta-Hydroxybutyrate/Acetoacetate 0.98 H (0.02-0.27) mmol/L Urine Color Yellow (Yellow) Urine Appearance Clear (Clear) Urine pH 8.5 (5.0-9.0) Ur Specific [place] > 1.045 H (1.001-1.035) Urine Protein 4+ H (Negative) mg/dL Urine Glucose (UA) 2+ H (Negative) mg/dL Urine Ketones 1+ H (Negative) mg/dL Ur Blood (Man) Non-hemolyzed trace H (Negative) Urine Nitrate Negative (Negative) Urine Bilirubin Negative (Negative) Urine Urobilinogen 0.2 (<2.0) mg/dL Leukocyte Esterase Rfl Negative (Negative) YECENIA/UL Urine RBC 6-10 H (0-2) /hpf Urine WBC 0-5 (0-3) /hpf Ur Squamous Epith Cells None seen (Few) /hpf Urine Bacteria None seen /hpf Urine Casts 0-2 Urine Opiates Screen Negative (Negative) Urine Methadone Screen Negative (Negative) Ur Barbiturates Screen Negative (Negative) Ur Phencyclidine Scrn Negative (Negative) Ur Amphetamine Screen Negative (Negative) U Benzodiazepines Scrn Negative (Negative) Urine Cocaine Screen Negative (Negative) U Cannabinoids Screen Positive A (Negative) Imaging Data Radiologist's impression: ITS Impressions Abdomen/Pelvis CT 06/25/24 19:43 IMPRESSION: No acute pathology within the abdomen or pelvis, as detailed above. Critical Care Time Critical Care Time Critical Care Time: No Discharge Plan Discharge Clinical Impression: Acute dehydration, Acute hypokalemia Patient Disposition: Home, Self-Care Condition: Improved Instructions: Hypokalemia (ED), Acute Nausea and Vomiting (ED), Abdominal Pain (ED) Additional Instructions: Return to the ER if you experience fever, abdominal pain with nausea and vomiting, you are unable to keep down liquids or solids, blood in the stool, pain or burning with urination, blood in the urine or any other symptoms that are concerning to you Small, frequent meals. [place] diet. Remain well hydrated Follow up with your clinical informatics strategist Patient Language: Spanish Prescriptions: New potassium chloride 20 mEq/15 mL liquid 40 meq PO DAILY 3 Days Qty: 90 0RF metoclopramide HCl 5 mg tablet 5 mg PO QID PRN (Reason: nausea and vomiting) Qty: 14 0RF Follow-up/Referrals: UNKNOWN,DOCTOR [Primary Care Provider] -
[2024-06-25] MEDS: POTASSIUM CHLORIDE INJ 40 MEQ in SODIUM CHLORIDE 0.9% IV 500 ML 130 MEQ IVPB (19:46)
[2024-06-25] MEDS: POTASSIUM CHLORIDE 20 MEQ ER TABLET 40 MEQ PO (21:01)
--- NOTE | 2024-06-25 21:08 | PC.NURSE ---
patient is po challenging at this time, was given potassium pills with water to slowly drink and take.
[2024-06-25 21:32] LABS: Add Urine Microscopic? YES; Appearance Urine Clear (Clear); Bacteria Urine None Seen /hpf; Bilirubin Urine Negative (Negative); Blood Urine Non-Hemolyzed Trace (Negative); Color Urine Yellow (Yellow); Glucose Urine UA 2+ mg/dL (Negative); Ketones Urine 1+ mg/dL (Negative); Leukocyte Esterase Ur Negative LEU/UL (Negative); Nitrate Urine Negative (Negative); Non Pathogenic Casts 0-2; Protein Urine 4+ mg/dL (Negative); Specific Grav Ur > 1.045 (1.001-1.035); Squamous Epithelial Cell Urine None Seen /hpf (Few); Urobilinogen Urine 0.2 mg/dL (<2.0); WBC Urine 0-5 /hpf (0-3); pH Urine 8.5 (5.0-9.0)
[2024-06-25 21:47] LABS: Amphetamine Screen Urine Negative (Negative); Barbiturate Screen Urine Negative (Negative); Benzodiazepines Screen Urine Negative (Negative); Cannabinoid Screen Urine Positive (Negative); Cocaine Screen Urine Negative (Negative); Methadone Screen Urine Negative (Negative); Opiate Screen Urine Negative (Negative); Phencyclidine Screen Urine Negative (Negative)
[2024-06-25 22:07] LABS: Anion Gap 10 mmol/L (4-12); Blood Urea Nitrogen 21 mg/dL (7-17); Calcium 8.6 mg/dL (8.4-10.2); Carbon Dioxide 31 mmol/L (22-30); Chloride 97 mmol/L (98-107); Estimated CRCL calculation 50 ml/min; Estimated Glomerular Filt Rate > 60; Glucose 76 mg/dL (65-110); Sodium 138 mmol/L (137-145)
== END 2024-06-25 23:11 | disposition home or self-care (01) ==
PROVIDERS: Emergency Provider Physician Assistant
DX: E86.0 Dehydration (principal); E87.6 Hypokalemia
CPT/HCPCS: 36415; 74177; 80048; 80053; 80307; 81001; 82010; 83690; 83735; 84100; 85025; 96361; 96365; 96366; 96375; 99284; A9270; J1885; J2405; J3480; J7030; J7040; Q9967